=== PATIENT | female | born 1980 | race Caucasian/White ===

== ENCOUNTER 2019-09-08 16:37 | Outpatient (CLI) | payer SELFPAY ==
--- NOTE | 2019-09-08 16:41 | CT_ITS ---
WS: [id number] CT PARANASAL SINUSES HISTORY: CHRONIC SINUSITIS TECHNIQUE: Contiguous 2.5 mm axial images obtained through the sinuses. Images are reconstructed in s agittal and coronal planes. All CT scans at [facility] use at least one of these dose opt imization techniques: automated exposure control; mA and/or kV adjustment per patient size (includes targeted exams where dose is matched to clinical indication); or iterative reconstruction. DLP: 361.68 mGy-cm. COMPARISON: 05/04/2019 Frontal sinuses: Small amount mucoperiosteal thickening in the far lateral LEFT frontal sinus. Simila r to the prior study. Sphenoid sinus: Normal. Ethmoid sinuses: Normal. Maxillary sinus: Small amount of mucoperiosteal thickening in the floors of the maxillary sinuses. No air-fluid levels. Ostiomeatal unit: Ostiomeatal units are widely patent. Improved mucoperiosteal thickening involving t he RIGHT ostiomeatal unit. Leftward curvature of the nasal septum with a bony spur measuring 5 mm extending towards the LEFT. CT/CT sinus wo con* [id number] IMPRESSION: 1. 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 2. Improved mucoperiosteal thickening at the RIGHT ostiomeatal unit. 3. Leftward nasal septal spur is unchanged.
== END 2019-09-08 16:38 | disposition home or self-care (01) ==
LOC: RADWPI 16:39
PROVIDERS: Family Provider Family Medicine; PCP Family Medicine; Visit Provider Otolaryngology
DX: J34.89 Other specified disorders of nose and nasal sinuses (principal); J32.9 Chronic sinusitis, unspecified
CPT/HCPCS: 70486

== ENCOUNTER → 2019-10-03 10:26 | Outpatient (BNVA) | payer SELFPAY | PROVIDERS: Family Provider Family Medicine; PCP Family Medicine; Visit Provider Nurse Practitioner Family | DX: R00.2 Palpitations (principal) | CPT/HCPCS: 84443 ==

== ENCOUNTER → 2019-10-06 09:33 | Outpatient (BNVA) | payer SELFPAY | PROVIDERS: Family Provider Family Medicine; PCP Family Medicine; Referring Provider Family Medicine; Visit Provider Otolaryngology | DX: Z09 Encounter for follow-up examination after completed treatment for conditions other than malignant neoplasm (principal); J34.2 Deviated nasal septum; J34.3 Hypertrophy of nasal turbinates; J34.89 Other specified disorders of nose and nasal sinuses; F17.210 Nicotine dependence, cigarettes, uncomplicated | CPT/HCPCS: 96372; 99214 ==

== ENCOUNTER → 2019-10-21 10:20 | Outpatient (BNVA) | payer SELFPAY | PROVIDERS: Family Provider Family Medicine; PCP Family Medicine; Visit Provider Otolaryngology | DX: J34.2 Deviated nasal septum (principal); J34.3 Hypertrophy of nasal turbinates; J34.89 Other specified disorders of nose and nasal sinuses; F17.210 Nicotine dependence, cigarettes, uncomplicated | CPT/HCPCS: 96372; 99214 ==

== ENCOUNTER → 2020-02-13 14:30 | Outpatient (BNVA) | payer SELFPAY | PROVIDERS: Family Provider Family Medicine; PCP Family Medicine; Visit Provider Nurse Practitioner Family | DX: N92.6 Irregular menstruation, unspecified (principal) | CPT/HCPCS: 81025 ==

== ENCOUNTER 2020-04-29 18:56 | Inpatient (IN) | payer SELFPAY ==
[2020-04-29] VITALS (12 sets, daily range): BP systolic 102–137; BP diastolic 63–99; PULSE 74–93; RESP 14–31; TEMP 36.7–37.1; O2SAT 96–100; BMI 20.3
--- NOTE | 2020-04-29 18:57 | ECG_ITS ---
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 Measurements Intervals [place] Rate: 99 P: 40 MI: 154 QRS: 34 QRSD: 88 T: 35 QT: 367 QTc: 472 Interpretive Statements SINUS RHYTHM POSSIBLE LEFT ATRIAL ENLARGEMENT [-0.1mV P WAVE IN V1/V2] Compared to ECG 03/18/2019 19:24:11 T-wave abnormality no longer present Electronically Signed On 04-30-2020 12:00:33 CDT by Ruel Mims M.D. [id number]
--- NOTE | 2020-04-29 19:07 | ED_ITS ---
HPI - Overdose General: Chief Complaint: Overdose Stated Complaint: lithium overdose Time Seen by Provider: 04/29/20 18:57 Source: patient Mode of arrival: ambulatory Limitations: no limitations History of Present Illness: HPI Narrative: 40-year-old female who states she is having suicidal ideations and took a handful of lithium pills roughly 2 hours ago in an attempt to kill herself. Patient states that there was roughly 5-6 600 mg tablets. Patient denies any vomiting. She is slightly drowsy. She denies any fevers. Review of Systems Const: Denies: fever(s), chills, body aches or change in appetite Eyes: Denies: blurry vision or eye discomfort ENMT: Denies: throat pain or dental pain Card: Denies: chest pain Resp: Denies: dyspnea GI: Denies: abdominal pain, nausea, vomiting or diarrhea : Denies: dysuria Musc: Denies: neck pain or back pain Skin/Breast: Denies: rash Neuro: Denies: headache(s) Psych: Reports: suicidal ideation Abhinav/Lymph: Denies: easy bruising All/Imm: Denies: urticaria PFSH ED PFSH: Medical History Bipolar disorder, in partial remission, most recent episode depressed Chronic schizophrenia Deviated septum Generalized anxiety disorder Nasal obstruction Nasal turbinate hypertrophy Nicotine dependence, cigarettes, uncomplicated Obsessive-compulsive personality disorder Surgical History Hx laparoscopic cholecystectomy Hx of appendectomy Family History Grandmother CAD (coronary artery disease) Diabetes Hyperlipidemia Hypertension Father CAD (coronary artery disease) Cancer Hyperlipidemia Hypertension Psychiatric illness Grandfather Hyperlipidemia Hypertension Stroke Social History Smoking and tobacco status: current some day smoker Quit status (tobacco): considering quitting Second hand smoke exposure: Yes Alcohol intake: never Household members: spouse and children Housing: House Female Reproductive History: Date of last menstrual period: 11/06/19 Physical Exam Const: COMMON NORMALS: no acute distress, patient oriented x3 and healthy appearing HENMT: COMMON NORMALS: normocephalic and atraumatic HEAD & SCALP: nor mocephalic and atraumatic Eye: COMMON NORMALS: Equal, round and reactive pupils present and EOMs intact bilaterally PUPIL: Yes Equal, round and reactive pupils present Neck/C-Spine: COMMON NORMALS: full ROM and supple Chest: COMMONS NORMALS: normal inspection of the chest and normal palpation of entire chest wall Resp: COMMON NORMALS: normal respiratory effort, No retractions, No use of accessory muscles and clear to auscultation bilaterally AUSCULTATION: clear to auscultation bilaterally Cardio: COMMON NORMALS: regular rate, regular rhythm and No murmurs present (Cardio) RATE: regular rate RHYTHM: regular rhythm GI: COMMON NORMALS: Normal to inspection, nondistended, normoactive bowel sounds present, Soft to palpation, non-tender and no masses PALPATION: Yes Soft to palpation Extremity: COMMON NORMALS: normal to inspection and full ROM Neuro: COMMON NORMALS: patient oriented x3, moves all extremities and no focal motor deficits Psych: COMMON NORMALS: mental status grossly normal and cooperative THOUGHT CONTENT: Yes Suicidality present Skin: COMMON NORMALS: no rashes or lesions noted and no wounds GENERAL SKIN EXAM: no rashes or lesions noted Course Vital Signs: Vital signs: Vital Signs Temperature 98.1 F 04/29/20 19:07 Pulse Rate 93 04/29/20 19:07 Respiratory Rate 14 04/29/20 19:07 Blood Pressure 129/99 04/29/20 19:07 Pulse Oximetry 96 04/29/20 19:07 MDM - Overdose MDM Narrative: Medical decision making narrative: Mary presents here with overdose of lithium. Initial level here is 2.0. She does not require any treatment at this time and is asymptomatic. Spoke to poison control and will admit to the ICU and do every 3 hours lithium drawls. Also spoke to Dr. Farias of psychiatry who is consulted. Patient has been stable while here. Lab Data: Labs: Lab Results 04/29/20 04/29/20 04/29/20 Range/Units 19:11 19:11 19:16 WBC 9.8 (4.0-10.0) 10^3/ uL RBC 4.30 (4.1-5.3) 10^6/u L Hgb 13.9 (11.5-15.3) g/dL Hct 43.8 (37.0-47.0) % MCV 101.9 H (81-99) fL MCH 32.3 (28.0-34.0) pg MCHC 31.7 (30.0-36.0) g/dL RDW 12.8 (12.1-15.1) % Plt Count 408 H (130-400) 10^3/c mm MPV 10.1 (7.4-10.4) fL Neut % (Auto) 63.5 % Lymph % (Auto) 30.4 % [place] % (Auto) 4.3 % Eos % (Auto) 0.9 % Baso % (Auto) 0.6 % Neut # (Auto) 6.23 (1.8-7.7) 10^3/u L Lymph # (Auto) 3.0 (0.8-4.8) 10^3/u L Victoria # (Auto) 0.4 (0.2-0.9) 10^3/u L Eos # (Auto) 0.1 (0.0-0.8) 10^3/u L Baso # (Auto) 0.1 (0.0-0.1) 10^3/u L Nucleated RBC % (a uto) 0 % Nucleated RBCs # 0.0 /100WBC Sodium (136-145) mmol/L Potassium (3.5-5.1) mmol/L Chloride (98-107) mmol/L Carbon Dioxide (22-29) mmol/L Anion Gap (5-19) BUN (6-20) mg/dL Creatinine (0.5-0.9) mg/dL GFR Calculation (90-130) mL/min Glucose (65-115) mg/dL Calculated Osmolal ity (285-295) mOsm/k g Calcium (8.5-10.5) mg/dL Total Bilirubin (0.15-1.2) mg/dL AST (0-32) U/L ALT (0-33) U/L Alkaline Phosphata se (35-105) IU/L Total Protein (6.6-8.7) g/dL Albumin (3.5-5.2) g/dL Globulin (1.3-4.6) g/dL HCG, Qual Negative (Negative) Salicylates (3-10) mg/dL Urine Opiates Scre en Negative (Negative) ng/mL Acetaminophen (10-30) ug/mL Ur Barbiturates Sc reen Negative (Negative) ng/mL Ur Phencyclidine S crn Negative (Negative) ng/mL Ur Amphetamines Sc reen Positive H (Negative) ng/mL U Benzodiazepines Scrn Negative (Negative) ng/mL [place] (0.6-1.2) mmol/L Urine Cocaine Scre en Negative (Negative) ng/mL U Marijuana (THC) Screen Negative (Negative) ng/mL Ethyl Alcohol (0-10) mg/dL 04/29/20 04/29/20 Range/Units 19:16 19:16 WBC (4.0-10.0) 10^3/ uL RBC (4.1-5.3) 10^6/u L Hgb (11.5-15.3) g/dL Hct (37.0-47.0) % MCV (81-99) fL MCH (28.0-34.0) pg MCHC (30.0-36.0) g/dL RDW (12.1-15.1) % Plt Count (130-400) 10^3/c mm MPV (7.4-10.4) fL Neut % (Auto) % Lymph % (Auto) % [place] % (Auto) % Eos % (Auto) % Baso % (Auto) % Neut # (Auto) (1.8-7.7) 10^3/u L Lymph # (Auto) (0.8-4.8) 10^3/u L Victoria # (Auto) (0.2-0.9) 10^3/u L Eos # (Auto) (0.0-0.8) 10^3/u L Baso # (Auto) (0.0-0.1) 10^3/u L Nucleated RBC % (a uto) % Nucleated RBCs # /100WBC Sodium 140 (136-145) mmol/L Potassium 3.7 (3.5-5.1) mmol/L Chloride 108 H (98-107) mmol/L Carbon Dioxide 25 (22-29) mmol/L Anion Gap 10.7 (5-19) BUN 9 (6-20) mg/dL Creatinine 0.6 (0.5-0.9) mg/dL GFR Calculation 109.6 (90-130) mL/min Glucose 105 (65-115) mg/dL Calculated Osmolal ity 286 (285-295) mOsm/k g Calcium 9.1 (8.5-10.5) mg/dL Total Bilirubin 0.4 (0.15-1.2) mg/dL AST 17 (0-32) U/L ALT 40 H (0-33) U/L Alkaline Phosphata se 71 (35-105) IU/L Total Protein 7.7 (6.6-8.7) g/dL Albumin 4.5 (3.5-5.2) g/dL Globulin 3.2 (1.3-4.6) g/dL HCG, Qual (Negative) Salicylates < 0.3 L (3-10) mg/dL Urine Opiates Scre en (Negative) ng/mL Acetaminophen < 5.0 L (10-30) ug/mL Ur Barbiturates Sc reen (Negative) ng/mL Ur Phencyclidine S crn (Negative) ng/mL Ur Amphetamines Sc reen (Negative) ng/mL U Benzodiazepines Scrn (Negative) ng/mL [place] 2.0 H (0.6-1.2) mmol/L Urine Cocaine Scre en (Negative) ng/mL U Marijuana (THC) Screen (Negative) ng/mL Ethyl Alcohol < 10 (0-10) mg/dL Discharge Plan Discharge Patient Disposition: Admitted As Inpatient Clinical Impression: Suicidal ideation Drug overdose Qualifiers: Encounter type: initial encounter Injury intent: intentional self-harm Qualified Code(s): T50.902A - Poisoning by unspecified drugs, medicaments and biological substances, intentional self-harm, initial encounter Condition: Stable Coding Level of Care Code ED Sr. Unix System Administrator for Phil Courtney Exam Comprehensive
[2020-04-29 19:23] LABS: Basophils # 0.1 10^3/uL (0.0-0.1); Basophils % 0.6 %; Eosinophils # 0.1 10^3/uL (0.0-0.8); Eosinophils % 0.9 %; Hematocrit 43.8 % (37.0-47.0); Hemoglobin 13.9 g/dL (11.5-15.3); Lymphocytes % 30.4 %; Mean Corpuscular HGB Conc 31.7 g/dL (30.0-36.0); Mean Corpuscular Hemoglobin 32.3 pg (28.0-34.0); Mean Corpuscular Volume 101.9 fL (81-99); Mean Platelet Volume 10.1 fL (7.4-10.4); Monocytes # 0.4 10^3/uL (0.2-0.9); Monocytes % 4.3 %; Neutrophils # 6.23 10^3/uL (1.8-7.7); Neutrophils % 63.5 %; Nucleated Red Blood Cells % 0 %; Platelet Count 408 10^3/cmm (130-400); Red Cell Distribution Width 12.8 % (12.1-15.1); White Blood Count 9.8 10^3/uL (4.0-10.0)
[2020-04-29 19:23] LABS: HCG Qualitative Urine. Negative (Negative)
[2020-04-29 19:29] LABS: Amphetamines Screen Urine Positive (Negative); Barbiturates Screen Urine Negative (Negative); Benzodiazepines Screen Urine Negative (Negative); Cocaine Screen Urine Negative (Negative); Opiate Screen Urine Negative (Negative); PCP Screen Urine Negative (Negative); THC Screen Urine Negative (Negative)
[2020-04-29] MEDS: sodium chloride 0.9% 1,000 ML 999 ML IV (19:45)
[2020-04-29 19:46] LABS: Alanine Aminotransferase 40 U/L (0-33); Albumin Level 4.5 g/dL (3.5-5.2); Alkaline Phosphatase 71 IU/L (35-105); Anion Gap 10.7 (5-19); Aspartate Amino Transferase 17 U/L (0-32); Blood Urea Nitrogen 9 mg/dL (6-20); Calcium 9.1 mg/dL (8.5-10.5); Carbon Dioxide 25 mmol/L (22-29); Chloride 108 mmol/L (98-107); Globulin 3.2 g/dL (1.3-4.6); Glomerular Filtration Rate 109.6 mL/min (90-130); Glucose 105 mg/dL (65-115); Osmolality Calculated 286 mOsm/kg (285-295); Potassium 3.7 mmol/L (3.5-5.1); Sodium 140 mmol/L (136-145); Total Bilirubin 0.4 mg/dL (0.15-1.2); Total Protein 7.7 g/dL (6.6-8.7)
[2020-04-29 19:53] LABS: Acetaminophen < 5.0 ug/mL (10-30); Alcohol Level < 10 mg/dL (0-10); Salicylate < 0.3 mg/dL (3-10)
[2020-04-29] MEDS: ondansetron 2 mg/ML SDV 2 mL 4 MG IVP (20:31)
--- NOTE | 2020-04-29 21:18 | P.HP_ITS ---
Providers/Chief Complaint Primary Care Provider: Bozena Rodriguez DO Chief Complaint: lithium overdose History of Present Illness Mary Saucedo is a 40 year old female who carries history of schizophrenia, bipolar disorder, major depressive disorder, suicidal attempt in the past as well by taking lithium came in today after drug overdose. Patient is stating that she is under a lot of stress, currently undergoing divorce, had an argument with her today and took a handful of lithium tablets, she is not sure about the quantity but endorses 6 to 8 pills, she is endorsing suicidal ideation in the hospital as well. She is denying fever, nausea, vomiting, experienced one episode of chest pain in the ER which lasted for about few minutes which resolved on its own, EKG is not showing any ischemic or infarctive changes, no interval changes, no abnormal creatinine, no severe electrolyte abnormality, U tox positive for lithium level 2 and amphetamine screen. Patient is endorsing to smoking 1 pack/day, drinking alcohol socially and denies use of IV drug abuse, methamphetamine or marijuana. At the time of my evaluation she had normal hemodynamics, saturating well, comfortable laying in her bed without any active discomfort, no signs of serotonin syndrome, no myoclonus Review of Systems Const: Reports: chills and fatigue; Denies: fever(s) Eyes: Denies: change in vision ENMT: Denies: throat pain Card: Denies: chest pain Resp: Denies: dyspnea GI: Denies: abdominal pain, nausea or vomiting : Denies: flank pain Musc: Denies: neck pain or back pain Skin/Breast: Denies: rash or pruritus Neuro: Denies: headache(s) Psych: Reports: anxiety, depression, mood swings, hopelessness, loss of interest, irritability and suicidal ideation Endo: Denies: polyuria Abhinav/Lymph: Denies: easy bruising All/Imm: Denies: urticaria Medications/Allergies Home Medications Medication Instructions Recorded Confirmed Last Taken Type aripiprazole 30 mg tablet 30 mg PO DAILY #30 tab 03/08/20 03/08/20 Unknown Rx clonazepam 0.5 mg tablet 0.5 mg PO TID #90 tab 03/08/20 03/08/20 Unknown Rx hydroxyzine pamoate 50 mg capsule 50 mg PO .at bedtime PRN #30 cap 03/08/20 03/08/20 Unknown Rx Allergies Allergy/AdvReac Type Severity Reaction Status Date / Time aspirin Allergy Mild ALGY-Hives Verified 02/13/20 14:33 Penicillins Allergy Unknown Unknown Verified 02/13/20 14:33 PFSH Acute PFSH: Medical History Bipolar disorder, in partial remission, most recent episode depressed Chronic schizophrenia Deviated septum Generalized anxiety disorder Nasal obstruction Nasal turbinate hypertrophy Nicotine dependence, cigarettes, uncomplicated Obsessive-compulsive personality disorder Surgical History Hx laparoscopic cholecystectomy Hx of appendectomy Family History Grandmother CAD (coronary artery disease) Diabetes Hyperlipidemia Hypertension Father CAD (coronary artery disease) Cancer Hyperlipidemia Hypertension Psychiatric illness Grandfather Hyperlipidemia Hypertension Stroke Social History Smoking and tobacco status: current some day smoker Quit status (tobacco): considering quitting Second hand smoke exposure: Yes Alcohol intake: never Household members: spouse and children Housing: House Female Reproductive History: Date of last menstrual period: 11/06/19 Vitals/I&O/Wt Last Vital Signs Temp 98.1 F 04/29/20 19:07 Pulse 93 04/29/20 19:07 Resp 14 04/29/20 19:07 BP 129/99 04/29/20 19:07 Pulse Ox 96 04/29/20 19:07 Weight last 48 hrs Weight 58.967 kg Physical Exam Narrative: EXAM NARRATIVE: This is a young female who is currently comfortable in her bed Normal hemodynamics No active chest pain nausea vomiting or signs of serotonin syndrome Neurologically nonfocal exam Myoclonus absent EOMI, PERRLA S1-S2 no tachycardia heart failure Abdomen soft nontender nondistended Clear lungs are clear to auscultation Patient is able to give me above-mentioned detail, endorses suicidal ideation No lower extremity edema gangrene ulcer Data : 04/29/20 19:16 04/29/20 19:16 A&P Assessment and plan (1) Drug overdose: Status: Acute Qualifiers: Encounter type: initial encounter Injury intent: intentional self-harm Qualified Code(s): T50.902A - Poisoning by unspecified drugs, medicaments and biological substances, intentional self-harm, initial encounter (2) Suicidal ideation: Status: Acute (3) Nicotine dependence, cigarettes, uncomplicated: Status: Acute (4) Generalized anxiety disorder: Status: Acute (5) Obsessive-compulsive personality disorder: Status: Acute (6) Chronic schizophrenia: Status: Acute Additional A&P Information Drug overdose with suicidal attempt 96-hour hold, history of suicidal attempt with lithium [place] level 2 No neurological or GI symptoms EKG with No acute kidney abnormality Monitor for serotonin syndrome, no confusion agitation, tremor noted, however neurological signs do occur late, acute symptoms are mostly GI which she is denying at the moment No acute indication for dialysis Fluid resuscitation Psych consult Hypertension: LVH and left atrial enlargement evident on EKG Currently normotensive Monitor blood pressure in the ICU DVT prophylaxis: Lovenox Full code Cardiac Attestations Medical Necessity Statement*: Patient is on 96-hour hold anticipating stay in the hospital cross more than 2 midnights currently need overnight monitoring in ICU for lithium toxicity Time Spent in Patient Care: (>than 50% of time spent in counselling and/or direct pt care on unit) . 50 minutes Coding Level of Care Code Acute [employer] for Chg Fwd Diagnoses Drug overdose T50.902A Encounter type: initial encounter Injury intent: intentional self-harm Suicidal ideation R45.851 Nicotine dependence, cigarettes, uncomplicated F17.210 Generalized anxiety disorder F41.1 Obsessive-compulsive personality disorder F60.5 Chronic schizophrenia F20.9
--- NOTE | 2020-04-29 22:50 | PC.NURSE ---
during pt rounds, pt states she is nauseated with no vomiting. vo obtained for 4mg of zofran IVP
--- NOTE | 2020-04-29 23:55 | PC.NURSE ---
Patient is able to void in bathroom toilet with supervision.
[2020-04-30] VITALS (22 sets, daily range): BP systolic 94–142; BP diastolic 38–79; PULSE 46–101; RESP 14–22; TEMP 37–37.1; O2SAT 94–97
[2020-04-30] MEDS: enoxaparin 40 mg/0.4 mL Syringe SUBCUT (00:03)
[2020-04-30] MEDS: sodium chloride 0.9% 1,000 ML 75 ML IV (00:04)
--- NOTE | 2020-04-30 00:45 | PC.NURSE ---
RN relieved patient's sitter for her break. 1:1 observation is continued.
--- NOTE | 2020-04-30 00:50 | PC.NURSE ---
Normal saline started as ordered.
--- NOTE | 2020-04-30 00:52 | PC.NURSE ---
Patient on suicide 1:1 observation.
--- NOTE | 2020-04-30 00:53 | PC.NURSE ---
Copy of patient's Notice of Rights of Involuntary Patient document provided et at bedside. Rights reviewed with patient.
[2020-04-30 02:07] LABS: Basophils # 0.1 10^3/uL (0.0-0.1); Basophils % 0.6 %; Eosinophils # 0.1 10^3/uL (0.0-0.8); Eosinophils % 1.2 %; Hematocrit 39.5 % (37.0-47.0); Hemoglobin 12.3 g/dL (11.5-15.3); Lymphocytes # 3.6 10^3/uL (0.8-4.8); Mean Corpuscular HGB Conc 31.1 g/dL (30.0-36.0); Mean Corpuscular Hemoglobin 32.4 pg (28.0-34.0); Mean Corpuscular Volume 103.9 fL (81-99); Mean Platelet Volume 10.6 fL (7.4-10.4); Monocytes # 0.5 10^3/uL (0.2-0.9); Monocytes % 4.3 %; Neutrophils # 7.34 10^3/uL (1.8-7.7); Neutrophils % 62.6 %; Nucleated Red Blood Cells % 0 %; Platelet Count 339 10^3/cmm (130-400); Red Cell Distribution Width 12.7 % (12.1-15.1); White Blood Count 11.7 10^3/uL (4.0-10.0)
[2020-04-30 02:11] LABS: Alanine Aminotransferase 33 U/L (0-33); Albumin Level 3.7 g/dL (3.5-5.2); Alkaline Phosphatase 58 IU/L (35-105); Aspartate Amino Transferase 24 U/L (0-32); Blood Urea Nitrogen 6 mg/dL (6-20); Calcium 8.9 mg/dL (8.5-10.5); Carbon Dioxide 25 mmol/L (22-29); Chloride 109 mmol/L (98-107); Globulin 2.4 g/dL (1.3-4.6); Glomerular Filtration Rate 109.6 mL/min (90-130); Glucose 98 mg/dL (65-115); Osmolality Calculated 288 mOsm/kg (285-295); Sodium 141 mmol/L (136-145); Total Bilirubin 0.3 mg/dL (0.15-1.2); Total Protein 6.1 g/dL (6.6-8.7)
[2020-04-30 04:59] LABS: Lithium 1.6 mmol/L (0.6-1.2)
--- NOTE | 2020-04-30 07:43 | PC.NURSE ---
Output Report was given to this nurse and output overnight was 1950 ml
[2020-04-30] MEDS: potassium chloride ER 10 mEq Tablet 40 MEQ PO (08:51)
--- NOTE | 2020-04-30 09:29 | PC.NURSE ---
Home medications Bottle of lithium was brought to this nurse and was in a biohazard bag with patient label and entered into [facility].
--- NOTE | 2020-04-30 10:28 | PM.PN ---
Subjective Subjective: Interval history: She is denies any discomfort. Denies headache, dizziness, chest pain, SOB, pain anywhere else. Vitals/I&O/Wt Last Vital Signs Temp 98.7 F 04/30/20 00:00 Pulse 78 04/30/20 09:00 Resp 22 H 04/30/20 09:00 BP 124/71 04/30/20 09:00 Pulse Ox 96 04/30/20 09:00 04/29/20 04/30/20 04/30/20 22:59 06:59 14:59 Intake Total 260 / 260 Output Total 600 / 600 Balance -340 / -340 Weight last 48 hrs Weight 58.967 kg Physical Exam Const: COMMON NORMALS: no acute distress, patient oriented x3 and alert ORIENTATION/CONSCIOUSNESS: Yes awake HENMT: COMMON NORMALS: oropharynx normal Neck/C-Spine: COMMON NORMALS: no JVD Resp: COMMON NORMALS: normal respiratory effort and clear to auscultation bilaterally AUSCULTATION: clear to auscultation bilaterally Cardio: COMMON NORMALS: no JVD, regular rhythm, S1 normal heart sound present, S2 normal heart sound present and No murmurs present (Cardio) RHYTHM: regular rhythm HEART SOUNDS: S1 normal heart sound present and S2 normal heart sound present GI: COMMON NORMALS: Normal to inspection, nondistended, normoactive bowel sounds present, Soft to palpation and non-tender PALPATION: Yes Soft to palpation Extremity: COMMON NORMALS: no joint enlargement and no pedal edema Neuro: COMMON NORMALS: patient oriented x3 and moves all extremities SENSORIUM/ORIENTATION: Yes alert Skin: COMMON NORMALS: no rashes or lesions noted GENERAL SKIN EXAM: no rashes or lesions noted Data : 04/30/20 01:20 04/30/20 01:20 A&P Assessment and plan (1) Drug overdose: Suicidal ideation attempt with lithium overdose. She did well overnight, lithium level is coming down, most recently at 1.6. Renal function, heart rate, other parameters are normal. She is awake, alert, lucid and denies any discomfort. Discussed with psychiatry. May continue care on our neuropsychiatric unit. Status: Acute Qualifiers: Encounter type: initial encounter Injury intent: intentional self-harm Qualified Code(s): T50.902A - Poisoning by unspecified drugs, medicaments and biological substances, intentional self-harm, initial encounter (2) Suicidal ideation: Will need additional psychiatric assessment and care. Status: Acute (3) Nicotine dependence, cigarettes, uncomplicated: Encourage cessation. Status: Acute (4) Generalized anxiety disorder: Pending additional psychiatric assessment. Status: Acute (5) Obsessive-compulsive personality disorder: Status: Acute (6) Chronic schizophrenia: Status: Acute Additional A&P Information Hypertension: At goal. LVH and left atrial enlargement evident on EKG. Hypokalemia: Replaced. Amphetamine positive urine tox screen: She had denied amphetamine use. Unclear if this is cross reaction from another substance, or drug use. We will see if can get a confirmatory test. Attestations Medical Necessity Statement*: Continue admission for assessment and management of depression with suicidal ideation and attempt. Coding Level of Care Code Acute Faculty Member for Phil Fwd Diagnoses Drug overdose T50.907C Encounter type: initial encounter Injury intent: intentional self-harm Suicidal ideation R45.851 Nicotine dependence, cigarettes, uncomplicated F17.210 Generalized anxiety disorder F41.1 Obsessive-compulsive personality disorder F60.5 Chronic schizophrenia F20.9
--- NOTE | 2020-04-30 11:43 | PC.NURSE ---
Transfer Patient was transferred to NPU via wheelchair by this nurse and security at 1130 and was greeted by staff. Patients belongings included jeans, shirt, bra, keys, necklace and cell phone. Patient tolerated transfer well.
--- NOTE | 2020-04-30 16:45 | PC.RESP ---
SMOKING CESSATION INFORMATION SENT TO PATIENT.
[2020-04-30 16:48] LABS: Anion Gap 12.1 (5-19); Blood Urea Nitrogen 6 mg/dL (6-20); Calcium 9.3 mg/dL (8.5-10.5); Carbon Dioxide 26 mmol/L (22-29); Chloride 109 mmol/L (98-107); Glomerular Filtration Rate 109.6 mL/min (90-130); Glucose 102 mg/dL (65-115); Osmolality Calculated 292 mOsm/kg (285-295); Potassium 4.1 mmol/L (3.5-5.1); Sodium 143 mmol/L (136-145)
[2020-04-30 17:06] LABS: Lithium 0.9 mmol/L (0.6-1.2)
[2020-04-30] MEDS: CLONazepam 0.5 mg Tablet PO (20:19)
--- NOTE | 2020-04-30 20:35 | PC.NURSE ---
pt given scheduled klonopin.
[2020-05-01 06:00] VITALS: BP 101/59; PULSE 74; RESP 17; TEMP 37.2; O2SAT 97
[2020-05-01 07:08] LABS: Basophils # 0.1 10^3/uL (0.0-0.1); Basophils % 0.5 %; Eosinophils # 0.2 10^3/uL (0.0-0.8); Eosinophils % 2.1 %; Hematocrit 41.4 % (37.0-47.0); Hemoglobin 12.8 g/dL (11.5-15.3); Lymphocytes # 2.9 10^3/uL (0.8-4.8); Lymphocytes % 30.2 %; Mean Corpuscular HGB Conc 30.9 g/dL (30.0-36.0); Mean Corpuscular Volume 103.5 fL (81-99); Mean Platelet Volume 10.1 fL (7.4-10.4); Monocytes # 0.4 10^3/uL (0.2-0.9); Monocytes % 4.4 %; Neutrophils # 5.98 10^3/uL (1.8-7.7); Neutrophils % 62.6 %; Nucleated Red Blood Cells % 0 %; Platelet Count 334 10^3/cmm (130-400); Red Cell Distribution Width 12.6 % (12.1-15.1); White Blood Count 9.6 10^3/uL (4.0-10.0)
[2020-05-01 07:28] LABS: Anion Gap 11.9 (5-19); Blood Urea Nitrogen 5 mg/dL (6-20); Calcium 9.3 mg/dL (8.5-10.5); Carbon Dioxide 25 mmol/L (22-29); Chloride 109 mmol/L (98-107); Creatinine Clr Calc Pharmacy 100.0704; Glomerular Filtration Rate 91.8 mL/min (90-130); Glucose 94 mg/dL (65-115); Osmolality Calculated 289 mOsm/kg (285-295); Potassium 3.9 mmol/L (3.5-5.1); Sodium 142 mmol/L (136-145)
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
[2020-05-01 13:26] VITALS: BP 130/77; PULSE 71; RESP 18; TEMP 37.1; O2SAT 99
[2020-05-01] MEDS: trazodone 50 mg Tablet PO (20:15)
[2020-05-01 21:10] VITALS: BP 128/79; PULSE 59; RESP 18; TEMP 36.5; O2SAT 96
--- NOTE | 2020-05-01 21:12 | PC.NURSE ---
pt requested sleep aide, prn trazodone given.
[2020-05-02 06:00] VITALS: BP 114/71; PULSE 71; RESP 16; TEMP 36.7; O2SAT 96
--- NOTE | 2020-05-02 13:27 | PM.NPN ---
Subjective NPU Subjective: Interval history: Mary presents today reporting that she is feeling better and that she is ready for discharge. The continue to discuss the significance of her behavior. She continues to endorse an epiphany from her overdose and downplays the need for her to be managed in an inpatient unit. Her focus is to get home and take care of my kids and family. However she struggles to identify that she was successful this option would be taken from her, so we continued to stress her being here due to her choices, not our decisions. She reports she is eating okay and sleeping fine. Mental Status Exam MSE Comments: This is a well-nourished, well-developed, white female in hospital scrubs, with adequate grooming and eye contact. No abnormal movement, except for mild psychomotor retardation. Cooperative with exam in no acute distress. Speech was normal rate and volume. Mood described as doing pretty good; affect brighter. Thought process, organized. Thought content: patient denied any suicidal or homicidal ideation, there were no delusions reported or noted, patient denied any auditory or visual hallucinations. Attention, concentration, and memory appear intact but none were formally tested. She is alert and oriented times three. Insight and judgment are limited but improving. Impulse control is limited, but improving. Vitals/I&O/Wt Last Vital Signs Temp 97.7 F 05/02/20 21:22 Pulse 105 H 05/02/20 21:22 Resp 20 H 05/02/20 21:22 BP 120/84 05/02/20 21:22 Pulse Ox 99 05/02/20 21:22 Data NPU : 05/01/20 06:43 05/01/20 06:43 A&P Assessment and plan (1) Cluster B personality disorder: Status: Acute (2) Nicotine dependence, cigarettes, uncomplicated: Status: Acute (3) Generalized anxiety disorder: Status: Acute (4) Obsessive-compulsive personality disorder: Status: Acute (5) Bipolar disorder, in partial remission, most recent episode depressed: Status: Acute Additional A&P Information This is a 40 year old, white female, with a history of depression, schizophrenia versus bipolar disorder, obsessive compulsive disorder, generalized anxiety disorder, and recent overdose on [place], who presents on a hold and desiring discharge. Continue current medication. Will continue holding [place] until likely tomorrow, and then decide whether we are going to restart it, after consulting her outpatient provider. Encourage individual, group, and milieu therapy. Continue q-15 minute checks for safety. We will get as much collateral information as possible, to see how reasonable a discharge would be, at this time. Involuntary Hold Information 96 Hour Hold: 96 Hour Involuntary Admission: Yes 96 Hour Hold Ending Date: 05/04/20 96 Hour Hold Ending Time: 17:01 Attestations NPU Medical Necessity Statement*: Inpatient hospitalization is medically necessary and the clinically appropriate intervention, at this time. We will monitor medications and make changes as indicated. Likely length of stay is 1-3 days. Coding Level of Care Code Acute Business Intelligence Reporting Analyst for g Fwd Diagnoses Cluster B personality disorder F60.89 Nicotine dependence, cigarettes, uncomplicated F17.210 Generalized anxiety disorder F41.1 Obsessive-compulsive personality disorder F60.5 Bipolar disorder, in partial remission, most recent episode depressed F31.75
[2020-05-02 14:00] VITALS: BP 112/70; PULSE 76; RESP 20; TEMP 37.2; O2SAT 95
[2020-05-02 21:22] VITALS: BP 120/84; PULSE 105; RESP 20; TEMP 36.5; O2SAT 99
[2020-05-03 06:00] VITALS: BP 104/67; PULSE 82; RESP 18; TEMP 36.6; O2SAT 96
--- NOTE | 2020-05-03 08:09 | PC.NURSE ---
Patient is smiling and cooperative this morning on assessment. She was saying that she is supposed to go home today and that today is her granddaughters birthday. She talked about her 3 children and 5 grandchildren. She said she feels stupid for trying to hurt herself. She feels that she is ready to go home because she just wants to hug her children She feels embarrassed that she was not able to cope with her feelings in a better way. She denies HI/SI and said that she rested last night. She understands that what she did to come to the unit was not a good way to handle life stressors and said she is prepared to follow up with care when she returns home.
[2020-05-03] MEDS: ARIPiprazole 30 mg Tablet PO (08:11)
[2020-05-03] MEDS: lithium carbonate 300 mg Capsule 600 MG PO (08:11)
[2020-05-03 11:25] VITALS: BP 104/67; PULSE 82; RESP 18; TEMP 36.6; O2SAT 96
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
== END 2020-05-03 12:53 | disposition home or self-care (01) | DRG 918 ==
LOC: ER 21:35 → ICU 21:53 → NP 04-30 11:35
PROVIDERS: Emergency Medicine; Internal Medicine; Admitting Provider Internal Medicine; PCP Family Medicine; Visit Provider Psychiatry & Neurology Psychiatry
DX: T56.892A Toxic effect of other metals, intentional self-harm, initial encounter (principal); R45.851 Suicidal ideations; F20.9 Schizophrenia, unspecified; Z91.5 Personal history of self-harm; F17.210 Nicotine dependence, cigarettes, uncomplicated; F41.1 Generalized anxiety disorder; F60.5 Obsessive-compulsive personality disorder; I10 Essential (primary) hypertension; J34.2 Deviated nasal septum
CPT/HCPCS: 12345; 36415; 80048; 80053; 80178; 80306; 80307; 80326; 81025; 85025; 93005; 96372; 99283; J1650; J2405; J7030

== ENCOUNTER → 2020-05-03 16:43 | Outpatient (BNVA) | payer SELFPAY | PROVIDERS: PCP Family Medicine; Visit Provider Emergency Medicine | DX: M79.89 Other specified soft tissue disorders (principal); S62.336A Displaced fracture of neck of fifth metacarpal bone, right hand, initial encounter for closed fracture; X58.XXXA Exposure to other specified factors, initial encounter | CPT/HCPCS: 73130 ==

== ENCOUNTER 2020-05-09 13:52 | Outpatient (CLI) | payer SELFPAY | END 2020-05-09 13:53 | disposition home or self-care (01) | LOC: SPT 13:52 | PROVIDERS: PCP Family Medicine; Visit Provider Orthopaedic Surgery | DX: Z46.89 Encounter for fitting and adjustment of other specified devices (principal); S62.306D Unspecified fracture of fifth metacarpal bone, right hand, subsequent encounter for fracture with routine healing; X58.XXXD Exposure to other specified factors, subsequent encounter | CPT/HCPCS: 97760; L3984 ==

== ENCOUNTER → 2020-06-12 10:59 | Outpatient (BNVA) | payer SELFPAY | PROVIDERS: PCP Family Medicine; Visit Provider Orthopaedic Surgery | DX: S62.306A Unspecified fracture of fifth metacarpal bone, right hand, initial encounter for closed fracture (principal); X58.XXXA Exposure to other specified factors, initial encounter | CPT/HCPCS: 73130 ==

== ENCOUNTER → 2020-07-03 15:35 | Outpatient (BNVA) | payer SELFPAY | PROVIDERS: PCP Family Medicine; Visit Provider Orthopaedic Surgery | DX: M79.641 Pain in right hand (principal) | CPT/HCPCS: 73130 ==

== ENCOUNTER → 2020-07-18 17:36 | Outpatient (BNVA) | payer SELFPAY | PROVIDERS: PCP Family Medicine; Visit Provider Emergency Medicine | DX: Z34.90 Encounter for supervision of normal pregnancy, unspecified, unspecified trimester (principal) | CPT/HCPCS: 84703 ==

== ENCOUNTER → 2020-09-04 11:13 | Outpatient (BNVA) | payer SELFPAY | PROVIDERS: PCP Family Medicine; Visit Provider Nurse Practitioner Family | DX: Z20.828 Contact with and (suspected) exposure to other viral communicable diseases (principal) | CPT/HCPCS: 87635 ==

== ENCOUNTER 2020-10-21 22:20 | Emergency (ER) | payer SELFPAY ==
[2020-10-21 22:22] VITALS: BP 121/79; PULSE 97; RESP 14; TEMP 36.7; O2SAT 98; BMI 26.6
--- NOTE | 2020-10-21 22:32 | W.ED.ABDPA2 ---
HPI - Abdominal Pain General: Chief Complaint: Abdominal Pain Stated Complaint: pain in right side and lower back Time Seen by Provider: 10/21/20 22:31 History of Present Illness: HPI narrative: Patient is a 40-year-old female who comes to the ED with right flank pain. Patient says symptoms started couple hours ago. She says the pain was a 9 out of 10 then and she took a large dose of ibuprofen, over 1200 mg and says her pain is now down to a 3 out of 10. She says when she was having a lot of pain earlier she had some nausea with the pain, but no emesis. She says her urine has been cloudy but denies any dysuria or hematuria. Patient does not have a history of kidney stones. She had similar right flank pain approximately 2 weeks ago that self resolved after a day. Denies any fever, chills, chest pain, shortness of breath, abdominal pain, diarrhea or constipation. Associated Symptoms: Reports nausea (Resolved before coming to the ED.); Denies chills, constipation, diarrhea, dysuria, fever(s), hematochezia, hematuria and vomiting Related Data: Date of Last Menstrual Period: 11/06/19 Review of Systems Const: Denies: fever(s), chills or fatigue Eyes: Denies: change in vision or eye discomfort ENMT: Denies: throat pain, odynophagia, nasal discharge or nasal congestion Card: Denies: chest pain, palpitations, edema, swelling of feet/ankles, dyspnea on exertion or orthopnea Resp: Denies: dyspnea, productive cough or non-productive cough GI: Reports: nausea (Resolved before coming to the ED.); Denies: abdominal pain, vomiting, diarrhea, constipation or hematochezia : Reports: flank pain (Right side); Denies: dysuria or hematuria Musc: Denies: neck pain, back pain or extremity swelling Skin/Breast: Denies: rash or new lesions Neuro: Denies: headache(s), numbness in extremities or weakness in extremities PFS ED PFSH: Medical History Anxiety Bipolar disorder, in partial remission, most recent episode depressed Chronic schizophrenia Deviated septum Generalized anxiety disorder Hypertension Nasal obstruction Nasal turbinate hypertrophy Nicotine dependence, cigarettes, uncomplicated Obsessive-compulsive personality disorder Surgical History History of appendectomy History of cholecystectomy Hx laparoscopic cholecystectomy Hx of appendectomy Family History Grandmother CAD (coronary artery disease) Diabetes Hyperlipidemia Hypertension Father CAD (coronary artery disease) Cancer Hyperlipidemia Hypertension Psychiatric illness Grandfather Hyperlipidemia Hypertension Stroke Social History Smoking and tobacco status: current every day smoker cigarettes Packs smoked per day: 1.5 Quit status (tobacco): considering quitting Second hand smoke exposure: Yes Alcohol intake: current Alcohol intake frequency: few times a week Household members: spouse and children Housing: House Female Reproductive History: Date of last menstrual period: 11/06/19 Spontaneous abortions: No Physical Exam Const: COMMON NORMALS: no acute distress, patient oriented x3 and alert GENERAL APPEARANCE: cooperative and comfortable HENMT: COMMON NORMALS: normocephalic HEAD & SCALP: normocephalic MOUTH: Normal oral and palatal mucosa present THROAT: posterior oropharynx normal and uvula midline Neck/C-Spine: COMMON NORMALS: supple GENERAL: Yes normal visual inspection Resp: COMMON NORMALS: normal respiratory effort, No retractions, No use of accessory muscles and clear to auscultation bilaterally AUSCULTATION: clear to auscultation bilaterally Cardio: COMMON NORMALS: regular rate, regular rhythm, S1 normal heart sound present, S2 normal heart sound present, No gallops present (Cardio), No clicks present (Cardio), No murmurs present (Cardio) and Peripheral pulses 2+ throughout RATE: regular rate RHYTHM: regular rhythm HEART SOUNDS: S1 normal heart sound present and S2 normal heart sound present PERIPHERAL PULSES: Peripheral pulses 2+ throughout GI: COMMON NORMALS: Normal to inspection, nondistended, normoactive bowel sounds present, Soft to palpation, non-tender and no masses PALPATION: Yes Soft to palpation OTHER: No tenderness throughout all 4 quadrants of the abdomen with light and deep palpation. : BLADDER/KIDNEY EXAM: Yes CVA tenderness (mild to mod) on the right OTHER: Patient had right CVA tenderness but no left CVA tenderness. Back/Pelvis: GENERAL BACK: Yes CVA tenderness CVA tenderness: right OTHER: Right CVA tenderness but no left CVA tenderness. Extremity: COMMON NORMALS: normal to inspection and no pedal edema Neuro: COMMON NORMALS: patient oriented x3 SENSORIUM/ORIENTATION: Yes alert GAIT: Yes Normal gait present Skin: GENERAL SKIN EXAM: dry skin Course ED course: I discussed with patient the appropriate dose when taking ibuprofen. I explained her that if she is going to take ibuprofen for pain or fevers to take up to 800 mg per dose and no more than that. I also explained to her that she can have ibuprofen dose every 8 hours. Patient understood medication instructions. Vital Signs: Vital signs: Vital Signs Temperature 98.0 F 10/21/20 22:22 Pulse Rate 94 10/22/20 00:48 Respiratory Rate 18 10/22/20 00:48 Blood Pressure 130/78 10/22/20 00:48 Pulse Oximetry 100 10/22/20 00:48 MDM - Abdominal Pain MDM Narrative: Medical decision making narrative: Patient is a 40-year-old female comes to the ED with right flank pain. She denies any UTI symptoms or fevers. Pain started today. Patient took ibuprofen before coming to the ED and her pain was well controlled upon arrival. Patient appears nontoxic and in no acute distress. Right CVA tenderness upon exam. White blood cell count 12.3 and the rest of CBC and CMP were unremarkable. hCG negative. Urinalysis suggestive of UTI. CT abdomen ordered to evaluate for possible kidney stone or pyelonephritis. CT findings showed no stones or kidney hydronephrosis. Right ureter wall thickening seen, suggestive of pyelonephritis. Patient was given IV fluids and Rocephin while here in the ED. Patient was stable for discharge patient was diagnosed with pyelonephritis and sent home with a prescription for Zofran and levofloxacin. Follow-up with PCP in 7 to 10 days. Return to ED precautions given. Patient understood and agree with plan. Lab Data: Attestation: I reviewed the patient's lab results. Labs: Lab Results 10/21/20 10/21/20 10/21/20 Range/Units 22:44 22:52 22:52 WBC 12.3 H (4.0-10.0) 10^3/ uL RBC 4.06 L (4.1-5.3) 10^6/u L Hgb 13.3 (11.5-15.3) g/dL Hct 40.9 (37.0-47.0) % MCV 100.7 H (81-99) fL MCH 32.8 (28.0-34.0) pg MCHC 32.5 (30.0-36.0) g/dL RDW 12.3 (12.1-15.1) % Plt Count 398 (130-400) 10^3/c mm MPV 9.6 (7.4-10.4) fL Neut % (Auto) 67.2 % Lymph % (Auto) 24.0 % [place] % (Auto) 6.6 % Eos % (Auto) 1.4 % Baso % (Auto) 0.5 % Neut # (Auto) 8.24 H (1.8-7.7) 10^3/u L Lymph # (Auto) 3.0 (0.8-4.8) 10^3/u L [place] # (Auto) 0.8 (0.2-0.9) 10^3/u L Eos # (Auto) 0.2 (0.0-0.8) 10^3/u L Baso # (Auto) 0.1 (0.0-0.1) 10^3/u L Nucleated RBC % (a uto) 0 % Nucleated RBCs # 0.0 /100WBC Sodium 138 (136-145) mmol/L Potassium 3.5 (3.5-5.1) mmol/L Chloride 104 (98-107) mmol/L Carbon Dioxide 24 (22-29) mmol/L Anion Gap 13.5 (5-19) BUN 6 (6-20) mg/dL Creatinine 0.4 L (0.5-0.9) mg/dL GFR Calculation 175.0 H (90-130) mL/min Glucose 90 (65-115) mg/dL Calculated Osmolal ity 283 L (285-295) mOsm/k g Calcium 8.7 (8.5-10.5) mg/dL Total Bilirubin 0.2 (0.15-1.2) mg/dL AST 12 (0-32) U/L ALT 22 (0-33) U/L Alkaline Phosphata se 80 (35-105) IU/L Total Protein 7.1 (6.6-8.7) g/dL Albumin 3.9 (3.5-5.2) g/dL Globulin 3.2 (1.3-4.6) g/dL Lipase 32 (13-60) U/L HCG, Qual (Negative) Urine Color Yellow (Yellow) Urine Appearance Sl cloudy A (CLEAR) Urine pH 5 (5-7) Ur Specific Gravit y 1.020 (1.005-1.030) Urine Protein Neg (Negative) Urine Glucose (UA) Norm (Normal) Urine Ketones Negative (Negative) Urine Blood 2+ H (Negative) Urine Nitrate Positive H (Negative) Urine Bilirubin Neg (Negative) Urine Urobilinogen Norm (Negative) mg/dL Ur Leukocyte Jyoti ase 2+ H (Negative) Urine RBC Too numerous to c nt H (0-2) /hpf Urine WBC Too numerous to c nt H (0-5) /hpf Ur Squamous Epith Cells 15-25 H (0-5) /hpf Amorphous Sediment Not Reportable Urine Bacteria 2+ H (NONE) /hpf 10/21/20 Range/Units 22:52 WBC (4.0-10.0) 10^3/ uL RBC (4.1-5.3) 10^6/u L Hgb (11.5-15.3) g/dL Hct (37.0-47.0) % MCV (81-99) fL MCH (28.0-34.0) pg MCHC (30.0-36.0) g/dL RDW (12.1-15.1) % Plt Count (130-400) 10^3/c mm MPV (7.4-10.4) fL Neut % (Auto) % Lymph % (Auto) % [place] % (Auto) % Eos % (Auto) % Baso % (Auto) % Neut # (Auto) (1.8-7.7) 10^3/u L Lymph # (Auto) (0.8-4.8) 10^3/u L [place] # (Auto) (0.2-0.9) 10^3/u L Eos # (Auto) (0.0-0.8) 10^3/u L Baso # (Auto) (0.0-0.1) 10^3/u L Nucleated RBC % (a uto) % Nucleated RBCs # /100WBC Sodium (136-145) mmol/L Potassium (3.5-5.1) mmol/L Chloride (98-107) mmol/L Carbon Dioxide (22-29) mmol/L Anion Gap (5-19) BUN (6-20) mg/dL Creatinine (0.5-0.9) mg/dL GFR Calculation (90-130) mL/min Glucose (65-115) mg/dL Calculated Osmolal ity (285-295) mOsm/k g Calcium (8.5-10.5) mg/dL Total Bilirubin (0.15-1.2) mg/dL AST (0-32) U/L ALT (0-33) U/L Alkaline Phosphata se (35-105) IU/L Total Protein (6.6-8.7) g/dL Albumin (3.5-5.2) g/dL Globulin (1.3-4.6) g/dL Lipase (13-60) U/L HCG, Qual Negative (Negative) Urine Color (Yellow) Urine Appearance (CLEAR) Urine pH (5-7) Ur Specific Gravit y (1.005-1.030) Urine Protein (Negative) Urine Glucose (UA) (Normal) Urine Ketones (Negative) Urine Blood (Negative) Urine Nitrate (Negative) Urine Bilirubin (Negative) Urine Urobilinogen (Negative) mg/dL Ur Leukocyte Jyoti ase (Negative) Urine RBC (0-2) /hpf Urine WBC (0-5) /hpf Ur Squamous Epith Cells (0-5) /hpf Amorphous Sediment Urine Bacteria (NONE) /hpf Imaging Data ^: CT Abd/Pel: Attestation: I personally reviewed and interpreted this imaging study as follows: Radiologist's impression: [address] [address] [address] Scan Report Signed Patient: Mary Miller Unit #: [id number] : 1980 Age/Sex: 40 / F ADM Date: 10/21/20 Loc: ER Room/Bed: Attending Dr: Ordering Provider/Ordering MD: Toan Woods Date of Service: 10/21/20 Procedure(s): CT kidney stone 54542 Accession Number(s): [id number] Report Number: [id number] PROCEDURE INFORMATION: Exam: CT Abdomen And Pelvis Without Contrast Exam date and time: 10/21/2020 11:21 PM Age: 40 years old Clinical indication: Abdominal pain; Right; Prior surgery; Surgery date: 6+ months; Surgery type: Gb, appy; Patient HX: C/O R flank pain w nausea; Additional info: Right flank pain TECHNIQUE: Imaging protocol: Computed tomography of the abdomen and pelvis without contrast. Radiation optimization: All CT scans at this facility use at least one of these dose optimization techniques: automated exposure control; mA and/or kV adjustment per patient size (includes targeted exams where dose is matched to clinical indication); or iterative reconstruction. COMPARISON: CT Chest/Abdomen/Pelvis w IV* 05/04/2019 2:13 PM RADIATION DOSE METRICS: Total DLP (mGy-cm): 1117.26 FINDINGS: Lungs: Interval mild bilateral dependent atelectasis. Liver: Still no apparent liver disease. Gallbladder and bile ducts: Cholecystectomy again evident. No interval significant biliary ductal dilatation. Pancreas: Still no suggestion of pancreatic disease. Spleen: Still no splenomegaly. Adrenal glands: Still no adrenal mass. Kidneys and ureters: Interval minimal prominence of the right renal pelvis and mild dilatation of the upper right ureter along with mild thickening of their slaughter. Still no hydronephrosis or ureteral stone. Stomach and bowel: Nondistended stomach. No obstruction. No apparent mucosal thickening. Appendix: Appendectomy again apparent. Intraperitoneal space: Still no free air. Vasculature: Continued moderate right and mild left ovarian varices. Slight right pelvic varices still likely. Still no aortic aneurysm. Lymph nodes: Interval increase in size of a node between the inferior aorta and the IVC, but normal short axis diameter of this node. Interval increase in size and/or slight enlargement of several right lower mesenteric nodes and appearance of a few small foci of haziness in the superior mesenteric fat. Urinary bladder: Unremarkable as visualized. Reproductive: Interval increase in the retroflexion of the uterus. Bones/joints: A few old minimal compression fractures again evident. Interval slight worsening of the small marginal spurs of both femoral heads. No interval significant hip joint narrowing. Soft tissues: Interval increase in size of the phlebolith in the subcutaneous fat of the lateral left lower hip region. CT/CT kidney stone [id number] IMPRESSION: 1. Interval appearance of findings suggestive of mesenteric adenitis. Interval appearance of the right renal pelvic and ureteral findings raising the possibility of pyelonephritis, also. 2. Continued moderate right and mild left ovarian varices and probable slight right pelvic varices. Other findings detailed above. Radiation Dose CTDIVOL = (mGy): DLP = 1117.26 (mGy-cm) Dictated By: Shameka Hoffman MD Signed By: Shameka Hoffman MD Signed Date/Time: 10/22/20 0002 DD/ 0000 Discharge Plan Discharge Patient Disposition: Home Clinical Impression: Pyelonephritis Condition: Stable Prescriptions: New Zofran 4 mg tablet 4 mg PO Q8H Qty: 15 RF: 0 levofloxacin 750 mg tablet 750 mg PO DAILY 5 Days Qty: 5 RF: 0 No Action ondansetron 4 mg tablet,disintegrating 4 mg PO Q8H 4 Days Qty: 12 RF: 0 aripiprazole [Abilify] 30 mg tablet 30 mg PO DAILY Qty: 30 RF: 2 clonazepam 0.5 mg tablet 0.5 mg PO TID Qty: 90 RF: 2 sertraline [Zoloft] 50 mg tablet 50 mg PO DAILY Qty: 30 RF: 0 lithium carbonate 600 mg capsule 600 mg PO BID 30 Days Qty: 60 RF: 1 Discharge Orders: Discharge ED (Routine); Ordered 10/22/20 Ordered By: Toan Woods Referrals: Bozena Rodriguez DO [Primary Care Provider] - Discharge Diet: Regular Discharge Activity: Increase activity as tolerated Patient Instructions: Acute Pyelonephritis (ED) Activity Restrictions/Additional Instructions: Follow-up with medical provider as directed in 7 to 10 days for reevaluation. Take medications as prescribed. Drink plenty of fluids to help flush out kidney infection. Take [id number] Tylenol or ibuprofen per bottle instructions for pain or fevers. Return to the ER or your medical provider if condition worsens. Please read and understand discharge instructions. If any questions, please ask. Coding Level of Care Code ED Dock Loader for Chg Fwd Exam Comprehensive
[2020-10-21 22:38] VITALS: BP 137/92; PULSE 105; RESP 16; O2SAT 98
--- NOTE | 2020-10-21 22:48 | CTR_ITS ---
PROCEDURE INFORMATION: Exam: CT Abdomen And Pelvis Without Contrast Exam date and time: 10/21/2020 11:21 PM Age: 40 years old Clinical indication: Abdominal pain; Right; Prior surgery; Surgery date: 6+ months; Surgery type: Gb, appy; Patient HX: C/O R flank pain w nausea; Additional info: Right flank pain TECHNIQUE: Imaging protocol: Computed tomography of the abdomen and pelvis without contrast. Radiation optimization: All CT scans at this facility use at least one of these dose optimization techniques: automated exposure control; mA and/or kV adjustment per patient size (includes targeted exams where dose is matched to clinical indication); or iterative reconstruction. COMPARISON: CT Chest/Abdomen/Pelvis w IV* 05/04/2019 2:13 PM RADIATION DOSE METRICS: Total DLP (mGy-cm): 1117.26 FINDINGS: Lungs: Interval mild bilateral dependent atelectasis. Liver: Still no apparent liver disease. Gallbladder and bile ducts: Cholecystectomy again evident. No interval significant biliary ductal dilatation. Pancreas: Still no suggestion of pancreatic disease. Spleen: Still no splenomegaly. Adrenal glands: Still no adrenal mass. Kidneys and ureters: Interval minimal prominence of the right renal pelvis and mild dilatation of the upper right ureter along with mild thickening of their slaughter. Still no hydronephrosis or ureteral stone. Stomach and bowel: Nondistended stomach. No obstruction. No apparent mucosal thickening. Appendix: Appendectomy again apparent. Intraperitoneal space: Still no free air. Vasculature: Continued moderate right and mild left ovarian varices. Slight right pelvic varices still likely. Still no aortic aneurysm. Lymph nodes: Interval increase in size of a node between the inferior aorta and the IVC, but normal short axis diameter of this node. Interval increase in size and/or slight enlargement of several right lower mesenteric nodes and appearance of a few small foci of haziness in the superior mesenteric fat. Urinary bladder: Unremarkable as visualized. Reproductive: Interval increase in the retroflexion of the uterus. Bones/joints: A few old minimal compression fractures again evident. Interval slight worsening of the small marginal spurs of both femoral heads. No interval significant hip joint narrowing. Soft tissues: Interval increase in size of the phlebolith in the subcutaneous fat of the lateral left lower hip region. CT/CT kidney stone [id number] IMPRESSION: 1. Interval appearance of findings suggestive of mesenteric adenitis. Interval appearance of the right renal pelvic and ureteral findings raising the possibility of pyelonephritis, also. 2. Continued moderate right and mild left ovarian varices and probable slight right pelvic varices. Other findings detailed above. Radiation Dose CTDIVOL = (mGy): DLP = 1117.26 (mGy-cm)
[2020-10-21 22:54] VITALS: PULSE 104; RESP 16; O2SAT 98
[2020-10-21] MEDS: sodium chloride 0.9% 1,000 ML 999 ML IV (22:58)
[2020-10-21 23:00] VITALS: BP 129/80
[2020-10-21 23:02] LABS: Basophils # 0.1 10^3/uL (0.0-0.1); Basophils % 0.5 %; Eosinophils # 0.2 10^3/uL (0.0-0.8); Eosinophils % 1.4 %; Hematocrit 40.9 % (37.0-47.0); Hemoglobin 13.3 g/dL (11.5-15.3); Mean Corpuscular HGB Conc 32.5 g/dL (30.0-36.0); Mean Corpuscular Hemoglobin 32.8 pg (28.0-34.0); Mean Corpuscular Volume 100.7 fL (81-99); Mean Platelet Volume 9.6 fL (7.4-10.4); Monocytes # 0.8 10^3/uL (0.2-0.9); Monocytes % 6.6 %; Neutrophils # 8.24 10^3/uL (1.8-7.7); Neutrophils % 67.2 %; Nucleated Red Blood Cells % 0 %; Platelet Count 398 10^3/cmm (130-400); Red Blood Count 4.06 10^6/uL (4.1-5.3); Red Cell Distribution Width 12.3 % (12.1-15.1); White Blood Count 12.3 10^3/uL (4.0-10.0)
[2020-10-21 23:14] LABS: HCG, Serum Qual Negative (Negative)
[2020-10-21 23:14] LABS: Bilirubin Urine Neg (Negative); Blood Urine 2+ (Negative); Glucose Urine UA Norm (Normal); Ketones Urine Negative (Negative); Leukocyte Esterase Urine 2+ (Negative); Nitrate Urine Positive (Negative); Protein Urine Neg (Negative); Urine Color Yellow (Yellow); Urobilinogen Urine Norm (Negative); pH Urine 5 (5-7)
[2020-10-21 23:19] LABS: Add Urine Culture? No; Bacteria Urine 2+ /hpf; RBC Urine TOO NUMEROUS TO CNT /hpf (0-2); Squamous Epithelial Cell Urine 15-25 /hpf (0-5); WBC Urine TOO NUMEROUS TO CNT /hpf (0-5)
[2020-10-21 23:28] LABS: Alanine Aminotransferase 22 U/L (0-33); Albumin Level 3.9 g/dL (3.5-5.2); Alkaline Phosphatase 80 IU/L (35-105); Anion Gap 13.5 (5-19); Aspartate Amino Transferase 12 U/L (0-32); Blood Urea Nitrogen 6 mg/dL (6-20); Calcium 8.7 mg/dL (8.5-10.5); Carbon Dioxide 24 mmol/L (22-29); Chloride 104 mmol/L (98-107); Globulin 3.2 g/dL (1.3-4.6); Glucose 90 mg/dL (65-115); Lipase 32 U/L (13-60); Osmolality Calculated 283 mOsm/kg (285-295); Potassium 3.5 mmol/L (3.5-5.1); Sodium 138 mmol/L (136-145); Total Bilirubin 0.2 mg/dL (0.15-1.2); Total Protein 7.1 g/dL (6.6-8.7)
[2020-10-21] MEDS: cefTRIAXone 2,000 MG in sodium chloride 0.9% (plus) 50 ML 100 MG IV (23:48)
[2020-10-21 23:49] VITALS: BP 130/91; PULSE 78; RESP 17; O2SAT 99
[2020-10-22 00:40] VITALS: PULSE 92; RESP 16; O2SAT 100
[2020-10-22 00:48] VITALS: BP 130/78; PULSE 94; RESP 18; O2SAT 100
== END 2020-10-22 00:51 | disposition home or self-care (01) ==
PROVIDERS: Emergency Provider Physician Assistant; PCP Family Medicine
DX: N12 Tubulo-interstitial nephritis, not specified as acute or chronic (principal); I10 Essential (primary) hypertension; F17.210 Nicotine dependence, cigarettes, uncomplicated
CPT/HCPCS: 74176; 80053; 81001; 83690; 84703; 85025; 96365; 99283; J0696; J7030

== ENCOUNTER → 2021-02-07 11:31 | Outpatient (BNVA) | payer OTHER, SELFPAY | PROVIDERS: PCP Family Medicine; Visit Provider Registered Nurse | DX: F31.75 Bipolar disorder, in partial remission, most recent episode depressed (principal) | CPT/HCPCS: 36415; 80053; 85025 ==

== ENCOUNTER → 2021-10-17 12:39 | Outpatient (BNVA) | payer OTHER, SELFPAY | PROVIDERS: PCP Family Medicine; Visit Provider Emergency Medicine | DX: Z20.822 Contact with and (suspected) exposure to COVID-19 (principal) | CPT/HCPCS: 87635 ==

== ENCOUNTER 2021-12-04 15:21 | Inpatient (IN) | payer SELFPAY ==
[2021-12-04 15:22] VITALS: BP 124/85; PULSE 93; RESP 18; TEMP 36.9; O2SAT 100; BMI 21.9
--- NOTE | 2021-12-04 15:22 | ED.C_ITS ---
HPI - Psych General: Chief Complaint: Psychiatric Symptoms Stated Complaint: SUICIDAL IDEATIONS Time Seen by Provider: 12/04/21 15:22 History of Present Illness: Ms Miller is a 41-year-old lady with significant past medical history of psychiatric disorder who presents to the emergency department due to depression with suicidal ideation. She reports last hospitalization in 2019 and essentially since that time she has not had any medications. She has kind of just been getting by with good days and bad days. She has had increased social stressors lately including the of her best friend. She got into an argument last night with her ex- and daughter. She intentionally cut her wrist with hope to . Intensity is moderate to severe. Course has been worsening. She denies medical complaints. She is up-to-date on her Tdap. No other specific changes in health, exacerbating, or alleviating factors identified. Duration: getting worse History of same: Yes Context: not taking psychiatric medications and significant life stressor Review of Systems General: Reports: 10 or more systems reviewed and unremarkable except in HPI and below PFSH ED PFSH: Medical History Adjustment disorder Anxiety Bipolar 1 disorder, depressed, severe Bipolar disorder, in partial remission, most recent episode depressed Chronic schizophrenia Deviated septum Drinking binge Generalized anxiety disorder Hypertension Intentional self-harm Nasal obstruction Nasal turbinate hypertrophy Nicotine dependence, cigarettes, uncomplicated Obsessive-compulsive personality disorder Psychiatric care Surgical History History of appendectomy History of cholecystectomy Hx laparoscopic cholecystectomy Hx of appendectomy Family History Grandmother CAD (coronary artery disease) Diabetes Hyperlipidemia Hypertension Father CAD (coronary artery disease) Cancer Hyperlipidemia Hypertension Psychiatric illness Grandfather Hyperlipidemia Hypertension Stroke Social History Smoking and tobacco status: current every day smoker cigarettes Packs smoked per day: 1.5 Quit status (tobacco): considering quitting Second hand smoke exposure: Yes Alcohol intake: current Alcohol intake frequency: few times a week Household members: spouse and children Housing: House Female Reproductive History: Date of last menstrual period: 11/06/19 Spontaneous abortions: No Physical Exam Const: COMMON NORMALS: alert GENERAL APPEARANCE: cooperative and well developed HENMT: COMMON NORMALS: normocephalic and atraumatic HEAD & SCALP: normocephalic and atraumatic Eye: COMMON NORMALS: conjunctivae normal CONJUNCTIVA: Yes conjunctivae normal SCLERA: sclerae normal Neck/C-Spine: COMMON NORMALS: supple GENERAL: Yes trachea midline Resp: COMMON NORMALS: clear to auscultation bilaterally EFFORT & INSPECTION: Yes able to speak in complete sentences AUSCULTATION: clear to auscultation bilaterally Cardio: COMMON NORMALS: regular rate and regular rhythm RATE: regular rate RHYTHM: regular rhythm GI: COMMON NORMALS: Soft to palpation PALPATION: Yes Soft to palpation and No Tenderness to palpation present (GI) Extremity: NARRATIVE EXTREMITY EXAM: Approximately 10 cm superficial laceration longitudinally oriented on the left anterior arm, no active bleeding, distal CMS intact. GENERAL: Yes normal exam except as noted and No edema Neuro: COMMON NORMALS: moves all extremities SENSORIUM/ORIENTATION: Yes alert and No Orientation impaired Psych: ATTITUDE: Yes Withdrawn affect present MOOD & AFFECT: Yes depressed mood THOUGHT CONTENT: Yes Suicidality present Skin: NARRATIVE SKIN EXAM: See extremity Course ED course: - Patient was seen and evaluated by me at bedside -Vital signs obtained - Initial evaluation notable for exam as above - Labs personally interpreted by me -Nicotine patch given - Labs notable for minimal leukocytosis which is nonspecific. No acute metabolic derangements contributing to patient symptoms. UDS screen positive for amphetamines - Upon serial reexamination after treatment the patient was similar - Based on patient history, evaluation, and testing as interpreted the most likely cause of the patient's condition is suicidal ideation, depression, suicide attempt - The results of ED evaluation were discussed with the patient including plan for admission due to requirement for level of care not available if discharged to prevent significant worsening/deterioration. - Admitting service was contacted and Dr Farias with the psychiatry service agreed to admit the patient - Patient was admitted without further deterioration or significant events. Note: Click bubbles or prepopulated bose in note writing are used for assistance with data collection and billing and are inherently more limited than narrative and other text portions of this note. Please use narrative for additional clinical history and defer to narrative/free test for any case of contradictory information. If information appears in only free text or click bubble it should be considered present or absent as reported. Please contact note fiction and nonfiction writer prose for clarifications of clinical information or contradictory information. MDM is a brief summary, contradictory or erroneous seeming information should be clarified and full note should be reviewed. Vital Signs: Vital signs: Vital Signs Temperature 98 F 12/05/21 17:35 Pulse Rate 62 12/05/21 17:35 Respiratory Rate 17 12/05/21 17:35 Blood Pressure 138/72 12/05/21 17:35 Pulse Oximetry 98 12/05/21 17:35 MDM - Psych Medical Decision Making 41-year-old lady with psychiatric history presenting with suicidal ideation and attempt due to significant recent stressors. Attempt by laceration to arm no repair needed. Tdap up-to-date. Admitted to the medical center for definitive management. Medical Records I reviewed the patient's medical records. Lab Data I reviewed the patient's lab results. : 12/04/21 15:27 12/04/21 15: Laboratory Results WBC 10.5 10^3/uL (4.0-10.0) H 12/04/21 15: RBC 4.25 10^6/uL (4.1-5.3) 12/04/21 15:27 Hgb 13.6 g/dL (11.5-15.3) 12/04/21 15: Hct 42.9 % (37.0-47.0) 12/04/21 15: MCV 100.9 fl (81-99) H 12/04/21 15: MCH 32.0 pg (28.0-34.0) 12/04/21 15: MCHC 31.7 g/dL (30.0-36.0) 12/04/21 15:27 RDW 12.5 % (12.1-15.1) 12/04/21 15:27 Plt Count 407 10^3/cmm (130-400) H 12/04/21 15:27 MPV 9.6 fL (7.4-10.4) 12/04/21 15: Neut % (Auto) 66.1 % 12/04/21 15: Lymph % (Auto) 27.4 % 12/04/21 15:27 Upton % (Auto) 4.3 % 12/04/21 15:27 Eos % (Auto) 1.4 % 12/04/21 15:27 Baso % (Auto) 0.5 % 12/04/21 15:27 Neut # (Auto) 6.96 10^3/uL (1.8-7.7) 12/04/21 15:27 Lymph # (Auto) 2.9 10^3/uL (0.8-4.8) 12/04/21 15:27 Upton # (Auto) 0.5 10^3/uL (0.2-0.9) 12/04/21 15:27 Eos # (Auto) 0.2 10^3/uL (0.0-0.8) 12/04/21 15: Baso # (Auto) 0.1 10^3/uL (0.0-0.1) 12/04/21 15: Nucleated RBC % (auto) 0 % 12/04/21 15: Nucleated RBCs # 0.0 /100WBC 12/04/21 15: Sodium 141 mmol/L (136-145) 12/04/21 15:27 Potassium 3.8 mmol/L (3.5-5.1) 12/04/21 15: Chloride 106 mmol/L (98-107) 12/04/21 15: Carbon Dioxide 28 mmol/L (22-29) 12/04/21 15:27 Anion Gap 10.8 (5-19) 12/04/21 15:27 BUN 13 mg/dL (6-20) 12/04/21 15: Creatinine 0.7 mg/dL (0.5-0.9) 12/04/21 15:27 GFR Calculation 91.3 mL/min (90-130) 12/04/21 15: Glucose 131 mg/dL (65-115) H 12/04/21 15:27 Calculated Osmolality 294 mOsm/kg (285-295) 12/04/21 15:27 Calcium 9.8 mg/dL (8.5-10.5) 12/04/21 15:27 Total Bilirubin 0.6 mg/dL (0.15-1.2) 12/04/21 15: AST 16 U/L (0-32) 12/04/21 15:27 ALT 22 U/L (0-33) 12/04/21 15:27 Alkaline Phosphatase 73 IU/L (35-105) 12/04/21 15: Total Protein 6.7 g/dL (6.6-8.7) 12/04/21 15:27 Albumin 4.2 g/dL (3.5-5.2) 12/04/21 15:27 Globulin 2.5 g/dL (1.3-4.6) 12/04/21 15:27 TSH 0.38 uIU/mL (0.27-4.20) 12/04/21 15:27 HCG, Qual Negative (Negative) 12/04/21 16:48 Salicylates < 0.3 mg/dL (3-10) L 12/04/21 15:27 Urine Opiates Screen Negative ng/mL (Negative) 12/04/21 16:48 Acetaminophen < 5.0 ug/mL (10-30) L 12/04/21 15:27 Ur Barbiturates Screen Negative ng/mL (Negative) 12/04/21 16:48 Ur Phencyclidine Scrn Negative ng/mL (Negative) 12/04/21 16:48 Ur Amphetamines Screen Positive ng/mL (Negative) H 12/04/21 16:48 U Benzodiazepines Scrn Negative ng/mL (Negative) 12/04/21 16:48 Urine Cocaine Screen Negative ng/mL (Negative) 12/04/21 16:48 U Marijuana (THC) Screen Negative ng/mL (Negative) 12/04/21 16:48 Ethyl Alcohol < 10 mg/dL (0-10) 12/04/21 15:27 Discharge Plan Discharge Patient Disposition: Admitted As Inpatient Admit Provider: Anirudh Farias Clinical Impression: Suicidal ideation, Depression, Intentional self-harm Condition: Stable Discharge Diet: Regular Discharge Activity: Resume usual activity Coding Level of Care Code ED 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
[2021-12-04 15:49] VITALS: BP 124/85; PULSE 93; RESP 18; O2SAT 100
[2021-12-04] MEDS: nicotine 21 mg Patch 1 PATCH TRANSDERMA (16:09)
[2021-12-04 16:17] LABS: Basophils # 0.1 10^3/uL (0.0-0.1); Basophils % 0.5 %; Eosinophils # 0.2 10^3/uL (0.0-0.8); Eosinophils % 1.4 %; Hematocrit 42.9 % (37.0-47.0); Hemoglobin 13.6 g/dL (11.5-15.3); Lymphocytes # 2.9 10^3/uL (0.8-4.8); Lymphocytes % 27.4 %; Mean Corpuscular HGB Conc 31.7 g/dL (30.0-36.0); Mean Corpuscular Volume 100.9 fl (81-99); Mean Platelet Volume 9.6 fL (7.4-10.4); Monocytes # 0.5 10^3/uL (0.2-0.9); Monocytes % 4.3 %; Neutrophils # 6.96 10^3/uL (1.8-7.7); Neutrophils % 66.1 %; Nucleated Red Blood Cells % 0 %; Platelet Count 407 10^3/cmm (130-400); Red Blood Count 4.25 10^6/uL (4.1-5.3); Red Cell Distribution Width 12.5 % (12.1-15.1); White Blood Count 10.5 10^3/uL (4.0-10.0)
[2021-12-04 16:35] LABS: Acetaminophen < 5.0 ug/mL (10-30); Alanine Aminotransferase 22 U/L (0-33); Albumin Level 4.2 g/dL (3.5-5.2); Alcohol Level < 10 mg/dL (0-10); Alkaline Phosphatase 73 IU/L (35-105); Anion Gap 10.8 (5-19); Aspartate Amino Transferase 16 U/L (0-32); Blood Urea Nitrogen 13 mg/dL (6-20); Calcium 9.8 mg/dL (8.5-10.5); Carbon Dioxide 28 mmol/L (22-29); Chloride 106 mmol/L (98-107); Creatinine Clr Calc Pharmacy 102.0175; Globulin 2.5 g/dL (1.3-4.6); Glomerular Filtration Rate 91.3 mL/min (90-130); Glucose 131 mg/dL (65-115); Osmolality Calculated 294 mOsm/kg (285-295); Potassium 3.8 mmol/L (3.5-5.1); Salicylate < 0.3 mg/dL (3-10); Sodium 141 mmol/L (136-145); Thyroid Stimulating Hormone 0.38 uIU/mL (0.27-4.20); Total Bilirubin 0.6 mg/dL (0.15-1.2); Total Protein 6.7 g/dL (6.6-8.7)
[2021-12-04 17:00] LABS: HCG Qualitative Urine. Negative (Negative)
[2021-12-04 17:15] LABS: Amphetamines Screen Urine Positive (Negative); Barbiturates Screen Urine Negative (Negative); Benzodiazepines Screen Urine Negative (Negative); Cocaine Screen Urine Negative (Negative); Opiate Screen Urine Negative (Negative); PCP Screen Urine Negative (Negative); THC Screen Urine Negative (Negative)
[2021-12-04 19:50] VITALS: BP 105/74; PULSE 95; RESP 17; O2SAT 97
[2021-12-04 20:16] VITALS: BP 95/62; PULSE 103; RESP 18; TEMP 36.8; O2SAT 98
[2021-12-04] MEDS: trazodone 50 mg Tablet PO (21:02)
[2021-12-04 22:00] VITALS: BP 102/68; PULSE 95; RESP 18; TEMP 36.7; O2SAT 98
[2021-12-05 05:01] VITALS: BP 90/52; PULSE 71; RESP 16; TEMP 36.2; O2SAT 96
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
[2021-12-05] MEDS: nicotine 2 mg Gum BUCCAL ×2 (12:28→14:51)
[2021-12-05] MEDS: OLANZapine 5 mg ODT PO (12:28)
--- NOTE | 2021-12-05 12:40 | NPU.GN ---
[facility] Unit Group Topic:Dice Breaker General Mood of Group Patient did not attend group today. Patient was sleeping. CSS met with patient and discussed [facility] services. Patient would like [facility] services and CSS aided client in completing the [facility] intake packet. CSS is also referring patient to [facility] services with [facility] per patients request.
[2021-12-05 14:00] VITALS: BP 138/72; PULSE 62; RESP 17; TEMP 36.6; O2SAT 98
[2021-12-05] MEDS: sertraline 50 mg Tablet PO (16:45)
[2021-12-05 17:35] VITALS: BP 138/72; PULSE 62; RESP 17; TEMP 36.6; O2SAT 98
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
== END 2021-12-05 17:37 | disposition left against medical advice (07) | DRG 885 ==
LOC: ER 18:18 → NP 18:56
PROVIDERS: Admitting Provider Psychiatry & Neurology Psychiatry; Emergency Provider Emergency Medicine; PCP Family Medicine; Visit Provider Psychiatry & Neurology Psychiatry
DX: F31.4 Bipolar disorder, current episode depressed, severe, without psychotic features (principal); F15.20 Other stimulant dependence, uncomplicated; T14.91XA Suicide attempt, initial encounter; X78.9XXA Intentional self-harm by unspecified sharp object, initial encounter; F60.89 Other specific personality disorders; F41.1 Generalized anxiety disorder; F17.210 Nicotine dependence, cigarettes, uncomplicated; F43.10 Post-traumatic stress disorder, unspecified; F42.9 Obsessive-compulsive disorder, unspecified; F43.0 Acute stress reaction; Z91.51 Personal history of suicidal behavior; Z81.8 Family history of other mental and behavioral disorders; Z53.29 Procedure and treatment not carried out because of patient's decision for other reasons
CPT/HCPCS: 80053; 80306; 80307; 81025; 84443; 85025; 97150; 97165; 99285

== ENCOUNTER → 2022-04-24 13:34 | Outpatient (BNVA) | payer OTHER, SELFPAY | PROVIDERS: PCP Family Medicine; Visit Provider Registered Nurse | DX: Z79.899 Other long term (current) drug therapy (principal) | CPT/HCPCS: 80053; 80061; 83036; 84443; 85025 ==

== ENCOUNTER 2022-08-25 14:37 | Outpatient (CLI) | payer MEDICAID, SELFPAY ==
--- NOTE | 2022-08-25 14:49 | XR_ITS ---
WS: [id number] Exam: XR elbow RT 2V Date/Time of Exam: 08/25/2022 2:51 PM Reason For Exam: R ELBOW JOINT PAIN Findings: There are no fractures, soft tissue swelling, or calcifications. The elbow shows normal bony alignme nt. There is no irregularity of the bony architecture. XR/XR elbow RT IMPRESSION: Negative right elbow.
== END 2022-08-25 14:38 | disposition home or self-care (01) ==
PROVIDERS: PCP Family Medicine; Visit Provider Family Medicine
DX: M25.521 Pain in right elbow (principal)
CPT/HCPCS: 73070

== ENCOUNTER 2022-12-10 07:36 | Outpatient (CLI) | payer MEDICAID, SELFPAY ==
--- NOTE | 2022-12-10 | US_ITS ---
WS: [id number] ULTRASOUND SOFT TISSUES LEFT neck. HISTORY: CERVICAL LYMPHADENOPATHY COMPARISON: None available. TECHNIQUE: 2-D and color Doppler imaging is submitted. Ultrasound is directed along the LEFT neck in the palpable region. Palpable area corresponds to small benign-appearing lymph node measuring 6 x 4 x 7 mm. There is an additional larger lymph node or 2 ad jacent lymph nodes with a maximum diameter 3.0 cm in the LEFT cervical chain. Normal fatty hilum pers ists. US/US soft tissue head neck [id number] IMPRESSION: Normal LEFT cervical chain lymph nodes.
== END 2022-12-10 07:37 | disposition home or self-care (01) ==
LOC: RAD 07:38
PROVIDERS: PCP Family Medicine; Visit Provider Family Medicine
DX: R59.0 Localized enlarged lymph nodes (principal)
CPT/HCPCS: 76536

== ENCOUNTER → 2023-01-28 13:32 | Outpatient (BNVA) | payer MEDICAID, SELFPAY | PROVIDERS: PCP Family Medicine; Visit Provider Nurse Practitioner Psychiatric/Mental Health | DX: F31.4 Bipolar disorder, current episode depressed, severe, without psychotic features (principal); Z79.899 Other long term (current) drug therapy | CPT/HCPCS: 80061; 83036 ==

== ENCOUNTER 2023-03-11 09:47 | Emergency (ER) | payer MEDICAID, SELFPAY ==
[2023-02-10 16:41] VITALS: BP 129/73; BMI 28.6
[2023-03-11 09:52] VITALS: BP 124/68; PULSE 114; RESP 16; TEMP 36.7; O2SAT 95; BMI 29.0
--- NOTE | 2023-03-11 09:56 | XRR_ITS ---
PROCEDURE INFORMATION: Exam: XR Chest Exam date and time: 03/11/2023 10:13 AM Age: 43 years old Clinical indication: Pain; Angina pectoris; Patient HX: Dizziness; Additional info: Chest pain TECHNIQUE: Imaging protocol: Radiologic exam of the chest. Views: 1 view. Total images: 244 COMPARISON: CT chest abdpel w/*[id number] 05/04/2019 2:13 PM FINDINGS: Lungs: Unremarkable. No consolidation. Pleural spaces: Unremarkable. No pleural effusion. No pneumothorax. Heart/Mediastinum: Unremarkable. No cardiomegaly. Bones/joints: Unremarkable. XR/XR chest 1V portable [id number] IMPRESSION: No acute findings.
--- NOTE | 2023-03-11 10:02 | ECG_ITS ---
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 Measurements Intervals [place] Rate: 99 P: 61 PA: 142 QRS: 52 QRSD: 86 T: 46 QT: 349 QTc: 448 Interpretive Statements SINUS RHYTHM LEFT ATRIAL ENLARGEMENT [-0.15mV P-WAVE IN V1/V2] SEPTAL MYOCARDIAL INFARCTION , OF INDETERMINATE AGE [40+ ms Q WAVE IN V1/V2] Compared to ECG 04/29/2020 19:04:39 Myocardial infarct finding now present Electronically Signed On 03-11-2023 12:35:55 CDT by Maisha Justice M.D. [email or web address]
[2023-03-11 10:08] VITALS: BP 143/94; PULSE 104; RESP 18; O2SAT 97
--- NOTE | 2023-03-11 10:09 | W.ED.DIZZY ---
HPI - Dizziness General: Chief Complaint: Arrhythmia/Palpitations Stated Complaint: Dizziness, HR irregular, Weakness Time Seen by Provider: 03/11/23 09:49 Source: patient Mode of arrival: ambulatory Limitations: no limitations History of Present Illness: HPI Narrative: Patient is a 43-year-old female who presents to ED today with a complaint of intermittent episodes of dizziness and weakness. She states symptoms have been present over the past 4 to 5 days. She states she will have episodes lasting a few minutes where she will become dizzy and weak. 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 Patient states she does have a history of sinus tachycardia that was previously treated with a beta-shilpi however she states she took herself off of this medication. She has not had any recent changes on her current medication doses nor has she started any new medications recently. States in between episodes she will be completely asymptomatic. She does not complain of a headache or neck pain. No visual changes. Patient states upon arrival to the ED symptoms have resolved and she is currently asymptomatic. MD elicited complaint: dizziness and other (weakness) Onset (ago): day(s) Timing: intermittent Severity: moderate Exacerbating factors: nothing Relieving factors: nothing Associated symptoms: Reports no associated symptoms; Denies chest pain, chills, headache(s), malaise, nausea, palpitations, syncope or vomiting Associated neuro symptoms: Reports no associated symptoms; Deny numbness in extremities Stroke scale total: 0 Review of Systems Const: Denies: fever(s), chills, body aches, fatigue or malaise Eyes: Denies: change in vision or blurry vision Card: Denies: chest pain, palpitations, irregular heart rhythm, edema, swelling of feet/ankles, lightheadedness, syncope, pre-syncope, dyspnea on exertion, orthopnea, leg pain with exertion or acrocyanosis Resp: Denies: dyspnea, productive cough or pain on inspiration GI: Denies: abdominal pain, nausea, vomiting, heartburn or diarrhea : Denies: dysuria Musc: Denies: neck pain, back pain, extremity pain, extremity swelling or joint pain Skin/Breast: Denies: rash Neuro: Reports: dizziness (resolved now) and other (weakness-gone now); Denies: headache(s), numbness in extremities, weakness in extremities, sensory changes, difficulty walking or seizure-like activity PFSH ED PFSH: Medical History Adjustment disorder Alcohol use disorder, severe, in early remission, dependence Anxiety Bipolar 1 disorder, depressed, severe Bipolar disorder, in partial remission, most recent episode depressed Chronic schizophrenia Deviated septum Drinking binge Dyslipidemia Generalized anxiety disorder Hypertension Intentional self-harm Methamphetamine use disorder, moderate, in early remission Nasal obstruction Nasal turbinate hypertrophy Nicotine dependence, cigarettes, uncomplicated Obsessive-compulsive personality disorder Psychiatric care Surgical History History of appendectomy History of cholecystectomy Hx laparoscopic cholecystectomy Hx of appendectomy Family History Grandmother CAD (coronary artery disease) Diabetes Hyperlipidemia Hypertension Father CAD (coronary artery disease) Cancer Hyperlipidemia Hypertension Psychiatric illness Grandfather Hyperlipidemia Hypertension Stroke Social History Smoking and tobacco status: current every day smoker cigarettes Packs smoked per day: 1 [ Other cigarette details: since ] Quit status (tobacco): not considering quitting Second hand smoke exposure: No Alcohol intake: former Year of sobriety/quit date alcohol: 2021 Former alcohol use details: Sober since February 2022 Substance/Drug Use: former Date of last use: 2021 Last substance use date: 03/06/22 Last substance use time: 12:00 Other details last substance use: Last used Meth February 2022, smoked and snorted. Adopted: No Caregiver/support person: No Lives independently: Yes Housing: House Number of children: 3 Number of grandchildren: 5 Highest education level completed: 9th Grade Current occupational status: employed Current occupational exposures/hazards: No Pets and animals: Yes Pets & animals: dog(s) Leisure activites: other Leisure activities details: play on phone and with dog Do you think of yourself as: Straight/Heterosexual Current gender identity: Female Marleny/Rastafarian: None Special marleny needs: No Agree to transfusion: Yes Financial difficulty paying for basics: Not Very Hard Female Reproductive History: Para: 3 Spontaneous abortions: No Physical Exam Const: COMMON NORMALS: no acute distress, patient oriented x3, no limitations, alert and well nourished GENERAL APPEARANCE: cooperative HENMT: COMMON NORMALS: normocephalic and atraumatic HEAD & SCALP: normal to inspection, normocephalic and atraumatic Eye: GENERAL EYE: appearance normal, both eyes and all related structures OTHER: no nystagmus Neck/C-Spine: COMMON NORMALS: full ROM, no lymphadenopathy, supple and no meningeal signs Chest: COMMONS NORMALS: normal inspection of the chest and normal palpation of entire chest wall Resp: COMMON NORMALS: normal respiratory effort and clear to auscultation bilaterally AUSCULTATION: clear to auscultation bilaterally Cardio: COMMON NORMALS: regular rhythm RATE: tachycardic RHYTHM: regular rhythm GI: COMMON NORMALS: Normal to inspection, nondistended, normoactive bowel sounds present, Soft to palpation, non-tender, No hepatosplenomegaly present and no masses PALPATION: Yes Soft to palpation and Yes No hepatosplenomegaly present : COMMON NORMALS: Yes no CVA tenderness BLADDER/KIDNEY EXAM: Yes no CVA tenderness Back/Pelvis: COMMON NORMALS: no CVA tenderness and thoracic and lumbar spine normal to inspection Extremity: COMMON NORMALS: normal to inspection, capillary refill normal, no joint enlargement, no clubbing, cyanosis or edema, no calf tenderness and no pedal edema GENERAL: Yes normal exam except as noted Neuro: [place] COMA SCALE: document GCS findings [place] coma scale eye opening: Spontaneous [place] coma scale verbal response: Orientated [place] coma scale motor response: Obey commands [place] coma scale total score: 15 COMMON NORMALS: patient oriented x3, CN's II-XII intact bilaterally, moves all extremities, no focal motor deficits, no sensory deficits noted and gait normal SENSORIUM/ORIENTATION: Yes alert MENINGEAL SIGNS: Yes no meningeal signs Skin: COMMON NORMALS: no rashes or lesions noted GENERAL SKIN EXAM: no rashes or lesions noted Course Vital Signs: Vital signs: Vital Signs Temperature 98.0 F 03/11/23 09:52 Pulse Rate 100 03/11/23 11:15 Respiratory Rate 16 03/11/23 11:15 Blood Pressure 143/97 03/11/23 11:15 Pulse Oximetry 98 03/11/23 11:15 Oxygen Delivery Me thod Room Air 03/11/23 09:52 MDM - Dizziness Medical Decision Making Patient appears in no acute distress. Her vital signs are stable. She does have episodes of sinus tachycardia although this has not seemed to elicit any dizziness while here. Blood work is nonactionable. TSH is normal. Baseline troponin is negative. EKG showing sinus rhythm. Recommend follow-up with her primary care provider. They can determine need for a possible Holter monitor and referral. States she would like to get back on her beta-shilpi to see if this possibly will cut down on episodes of dizziness. I think this is reasonable. I will place her on metoprolol 12.5 mg twice daily. Return to ED precautions given. Lab Data 03/11/23 10:12 03/11/23 10:12 Radiology Impressions Chest X-Ray 03/11/23 09:56 IMPRESSION: No acute findings. Laboratory Results WBC 11.4 10^3/uL (4.0-10.0) H 03/11/23 10:12 RBC 4.44 10^6/uL (4.1-5.3) 03/11/23 10:12 Hgb 14.5 g/dL (11.5-15.3) 03/11/23 10:12 Hct 43.8 % (37.0-47.0) 03/11/23 10:12 MCV 98.6 fl (81-99) 03/11/23 10:12 MCH 32.7 pg (28.0-34.0) 03/11/23 10:12 MCHC 33.1 g/dL (30.0-36.0) 03/11/23 10:12 RDW 12.2 % (12.1-15.1) 03/11/23 10:12 Plt Count 333 10^3/cmm (130-400) 03/11/23 10:12 MPV 9.3 fL (7.4-10.4) 03/11/23 10:12 Neut % (Auto) 72.5 % 03/11/23 10:12 Lymph % (Auto) 21.4 % 03/11/23 10:12 [place] % (Auto) 4.6 % 03/11/23 10:12 Eos % (Auto) 0.6 % 03/11/23 10:12 Baso % (Auto) 0.6 % 03/11/23 10:12 Neut # (Auto) 8.25 10^3/uL (1.8-7.7) H 03/11/23 10:12 Lymph # (Auto) 2.4 10^3/uL (0.8-4.8) 03/11/23 10:12 [place] # (Auto) 0.5 10^3/uL (0.2-0.9) 03/11/23 10:12 Eos # (Auto) 0.1 10^3/uL (0.0-0.8) 03/11/23 10:12 Baso # (Auto) 0.1 10^3/uL (0.0-0.1) 03/11/23 10:12 Nucleated RBC % (auto) 0 % 03/11/23 10:12 Nucleated RBCs # 0.0 /100WBC 03/11/23 10:12 Sodium 135 mmol/L (136-145) L 03/11/23 10:12 Potassium 4.0 mmol/L (3.5-5.1) 03/11/23 10:12 Chloride 101 mmol/L (98-107) 03/11/23 10:12 Carbon Dioxide 24 mmol/L (22-29) 03/11/23 10:12 Anion Gap 14.0 (5-19) 03/11/23 10:12 BUN 8 mg/dL (6-20) 03/11/23 10:12 Creatinine 0.7 mg/dL (0.5-0.9) 03/11/23 10:12 GFR Calculation 90.5 mL/min (90-130) 03/11/23 10:12 Glucose 91 mg/dL (65-115) 03/11/23 10:12 Calculated Osmolality 278 mOsm/kg (285-295) L 03/11/23 10:12 Calcium 9.2 mg/dL (8.5-10.5) 03/11/23 10:12 Total Bilirubin 0.4 mg/dL (0.15-1.2) 03/11/23 10:12 AST 10 U/L (0-32) 03/11/23 10:12 ALT 11 U/L (0-33) 03/11/23 10:12 Alkaline Phosphatase 85 U/L (35-105) 03/11/23 10:12 Troponin T Baseline 6 ng/L (0-10) 03/11/23 10:12 Total Protein 6.9 g/dL (6.6-8.7) 03/11/23 10:12 Albumin 4.3 g/dL (3.5-5.2) 03/11/23 10:12 Globulin 2.6 g/dL (1.3-4.6) 03/11/23 10:12 TSH 0.72 uIU/mL (0.27-4.20) 03/11/23 10:12 HCG, Qual Negative (Negative) 03/11/23 10:12 Discharge Plan Discharge Patient Disposition: Home Clinical Impression: Sinus tachycardia, Dizziness Condition: Stable Prescriptions: New metoprolol tartrate 25 mg tablet 12.5 mg PO BID Qty: 20 0RF No Action risperidone 1 mg tablet 2 mg PO DAILY 30 Days Qty: 60 1RF Rx Instructions: Take two tablets at bedtime; stop other dose bupropion HCl 300 mg tablet extended release 24 hr 300 mg PO QAM Qty: 30 1RF Rx Instructions: Take one tablet by mouth every morning Discharge Orders: Discharge ED (Routine); Ordered 03/11/23 Ordered By: Mi Hicks Referrals: Phyllis Singleton DO [Primary Care Provider] - Activity Restrictions/Additional Instructions: As we discussed please follow-up with your primary care provider for further evaluation and treatment. We discussed possibly an outpatient Holter monitor for further evaluation. You need to return to the ED for worsening dizziness, falls, chest pain, shortness of breath, difficulty breathing, severe palpitations or racing heart rate, any neurologic deficits, or any other concerns you may have. Coding Level of Care Code ED [facility] for Phil Courtney
[2023-03-11 10:23] LABS: Basophils # 0.1 10^3/uL (0.0-0.1); Basophils % 0.6 %; Eosinophils # 0.1 10^3/uL (0.0-0.8); Eosinophils % 0.6 %; Hematocrit 43.8 % (37.0-47.0); Hemoglobin 14.5 g/dL (11.5-15.3); Lymphocytes # 2.4 10^3/uL (0.8-4.8); Lymphocytes % 21.4 %; Mean Corpuscular HGB Conc 33.1 g/dL (30.0-36.0); Mean Corpuscular Hemoglobin 32.7 pg (28.0-34.0); Mean Corpuscular Volume 98.6 fl (81-99); Mean Platelet Volume 9.3 fL (7.4-10.4); Monocytes # 0.5 10^3/uL (0.2-0.9); Monocytes % 4.6 %; Neutrophils # 8.25 10^3/uL (1.8-7.7); Neutrophils % 72.5 %; Nucleated Red Blood Cells % 0 %; Platelet Count 333 10^3/cmm (130-400); Red Blood Count 4.44 10^6/uL (4.1-5.3); Red Cell Distribution Width 12.2 % (12.1-15.1); White Blood Count 11.4 10^3/uL (4.0-10.0)
[2023-03-11 10:37] LABS: HCG, Serum Qual Negative (Negative)
[2023-03-11 10:43] LABS: Troponin(5th) Baseline 6 ng/L (0-10)
[2023-03-11 10:50] LABS: Alanine Aminotransferase 11 U/L (0-33); Albumin Level 4.3 g/dL (3.5-5.2); Alkaline Phosphatase 85 U/L (35-105); Aspartate Amino Transferase 10 U/L (0-32); Blood Urea Nitrogen 8 mg/dL (6-20); Calcium 9.2 mg/dL (8.5-10.5); Carbon Dioxide 24 mmol/L (22-29); Chloride 101 mmol/L (98-107); Globulin 2.6 g/dL (1.3-4.6); Glomerular Filtration Rate 90.5 mL/min (90-130); Glucose 91 mg/dL (65-115); Osmolality Calculated 278 mOsm/kg (285-295); Sodium 135 mmol/L (136-145); Thyroid Stimulating Hormone 0.72 uIU/mL (0.27-4.20); Total Bilirubin 0.4 mg/dL (0.15-1.2); Total Protein 6.9 g/dL (6.6-8.7)
[2023-03-11 11:15] VITALS: BP 143/97; PULSE 100; RESP 16; O2SAT 98
== END 2023-03-11 11:16 | disposition home or self-care (01) ==
PROVIDERS: Emergency Provider Physician Assistant; PCP Family Medicine
DX: R00.0 Tachycardia, unspecified (principal); R42 Dizziness and giddiness; F17.210 Nicotine dependence, cigarettes, uncomplicated; E78.5 Hyperlipidemia, unspecified; I10 Essential (primary) hypertension
CPT/HCPCS: 36415; 71045; 80053; 84443; 84484; 84703; 85025; 93005; 99285

== ENCOUNTER 2023-03-30 14:14 | Outpatient (CLI) | payer MEDICAID, SELFPAY ==
[2023-02-10 16:41] VITALS: BP 129/73; BMI 28.6
--- NOTE | 2023-03-30 | USCV_ITS ---
Mary Dickinson Age: 43 Gender: F : 1980 Exam Date: 03/30/2023 15:07 Ordering Phys: Rachel Canales Technologist: [place] [facility] [place]: cp BP: 160 / 80 HR: 83 Rhythm: Sinus Technical Quality: Adequate MEASUREMENTS (Male / Female) Normal Values 2D ECHO LV Diastolic Diameter PLAX 4.7 cm 4.2 - 5.9 / 3.9 - 5.3 cm LV Systolic Diameter PLAX 2.9 cm LV Chamber Size 5.3 cm IVS Diastolic Thickness 1.2 cm 0.6 - 1.0 / 0.6 - 0.9 cm IVS Systolic Thickness 1.7 cm LVPW Diastolic Thickness 0.9 cm 0.6 - 1.0 / 0.6 - 0.9 cm LVPW Systolic Thickness 1.8 cm RV Chamber Size 3.5 cm LVOT Diameter 2.1 cm LV Ejection Fraction 2D Teich 68.2 % LV Ejection Fraction MOD 2C 56.8 % LV Ejection Fraction 2C AL 56.2 % LA Diameter 3.8 cm LA Width 4.0 cm LA Height 5.2 cm RA Width 3.9 cm RA Height 4.9 cm Aorta at Sinotubular Diameter 2.3 cm IVC Diameter 1.7 cm M-MODE Aortic Annulus Diameter 3.3 cm LA Ao Ratio MM 1.3 MV E Point Septal Separation 0.2 cm DOPPLER AV Peak Velocity 129.0 cm/s LVOT Peak Velocity 108.0 cm/s AV Area Cont Eq vti 3.7 cm squared AV Area Cont Eq pk 3.0 cm squared MV Peak Velocity 111.0 cm/s MV Area PHT 4.1 cm squared Mitral E to A Ratio 1.2 MV E' Velocity 58.0 cm/s Mitral E to MV E' Ratio 8.0 Mitral E to LV E' Lateral Ratio 6.7 Mitral E to LV E' Septal Ratio 9.9 TR Peak Velocity 97.0 cm/s TR Peak Gradient 3.8 mmHg TV Peak E Velocity 95.0 cm/s Right Atrial Pressure 3.0 mmHg Pulmonary Artery Systolic Pressu 6.8 mmHg PV Peak Velocity 101.0 cm/s FINDINGS Left Ventricle Left ventricle is normal size. LV systolic function is normal with EF of 55-60%. No regional wall motion abnormalities are seen. Diastolic function is normal Right Ventricle Normal in size and function Right Atrium Normal in size Left Atrium Normal in size Mitral Valve Structurally normal mitral valve. No significant stenosis or regurgitaiton. Aortic Valve Structurally normal aortic valve. No significant stenosis or regurgitation Tricuspid Valve Mild tricuspid regurgitation. Insufficient TR jet to calculate RVSP. Pulmonic Valve Not well visualized Pericardium Normal Aorta Normal in size IVC Appears to be normal CONCLUSIONS LV systolic function is normal with EF of 55 to 60%. Diastolic function is normal Mild tricuspid regurgitaiton. No comparison studies are available. Ruel Mims MD (Electronically Signed) Final Date: 11 April 2023 12:38 S
== END 2023-03-30 14:15 | disposition home or self-care (01) ==
PROVIDERS: PCP Family Medicine; Visit Provider Nurse Practitioner Family
DX: R07.9 Chest pain, unspecified (principal); R00.0 Tachycardia, unspecified
CPT/HCPCS: 93306

== ENCOUNTER 2023-06-29 15:39 | Outpatient (CLI) | payer MEDICAID, SELFPAY ==
[2023-02-10 16:41] VITALS: BP 129/73; BMI 28.6
[2023-06-30 14:29] LABS: Clostridium Difficile PCR NOT DETECTED (NOT DETECTED)
== END 2023-06-29 15:40 | disposition home or self-care (01) ==
LOC: LAB 15:43
PROVIDERS: PCP Nurse Practitioner Family; Visit Provider Nurse Practitioner Family
DX: R19.7 Diarrhea, unspecified (principal)
CPT/HCPCS: 83630; 87045; 87177; 87209; 87427; 87449; 87493

== ENCOUNTER 2023-12-05 11:35 | Emergency (ER) | payer OTHER, SELFPAY ==
[2023-02-10 16:41] VITALS: BP 129/73; BMI 28.6
[2023-12-05 11:52] VITALS: BP 101/62; PULSE 111; RESP 20; TEMP 36.8; O2SAT 98
--- NOTE | 2023-12-05 13:20 | PC.NURSE ---
THIS NURSE RECIEVED CALL FROM PHARMACY STATING ORDERED IMMUNOGLOBIN WAS IN PHARMACY AND THAT THE PHARMACY DID NOT HAVE ANY UNEXPIRED IMMUNOGLOBIN IN PHARMACY.
--- NOTE | 2023-12-05 13:23 | ED_ITS ---
HPI - Extremity Injury (Upper) 2 General: Chief Complaint: Needlestick/Injury/Exposure Stated Complaint: needle stick Time Seen by Provider: 12/05/23 12:51 History of Present Illness: The patient presents to the ER with a chief complaint of a needlestick injury. 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 The patient was inadvertently stuck by a syringe during the cleanup process. Following the needlestick injury, the patient experienced anger and frustration, and informed their employer about the incident. The patient washed their hands with soap and water immediately after the injury. The patient expresses concern about potential exposure to HIV and hepatitis. The needlestick injury occurred earlier today, and the patient is seeking prophylactic treatment for potential exposure to bloodborne pathogens. She reports that she was wearing gloves. She is unsure of her hepatitis vaccination status. Review of Systems 2 General: Reports: 10 or more systems reviewed and unremarkable except in HPI and below Const: Denies: fever(s) Card: Denies: palpitations or edema Resp: Denies: dyspnea Skin/Breast: Denies: rash PFSH ED 2 PFSH: Medical History Adjustment disorder Alcohol use disorder, severe, in early remission, dependence Anxiety Bipolar 1 disorder, depressed, severe Bipolar disorder, in partial remission, most recent episode depressed Chronic schizophrenia Deviated septum Drinking binge Dyslipidemia Generalized anxiety disorder Hypertension Intentional self-harm Methamphetamine use disorder, moderate, in early remission Nasal obstruction Nasal turbinate hypertrophy Nicotine dependence, cigarettes, uncomplicated Obsessive-compulsive personality disorder Psychiatric care Surgical History History of appendectomy History of cholecystectomy Hx laparoscopic cholecystectomy Hx of appendectomy Family History Grandmother CAD (coronary artery disease) Diabetes Hyperlipidemia Hypertension Father CAD (coronary artery disease) Cancer Hyperlipidemia Hypertension Psychiatric illness Grandfather Hyperlipidemia Hypertension Stroke Social History Smoking and tobacco/nicotine status: current every day tobacco/nicotine user cigarettes Packs smoked per day: 1 [ Other cigarette details: since 12] Quit status (tobacco/nicotine): not considering quitting Second hand smoke exposure: No Alcohol intake: former Year of sobriety/quit date alcohol: 2021 Former alcohol use details: Sober since February 2022 Substance/Drug Use: former Date of last use: 2021 Adopted: No Caregiver/support person: No Lives independently: Yes Housing: House Number of children: 3 Number of grandchildren: 5 Highest education level completed: 9th Grade Current occupational status: employed Current occupational exposures/hazards: No Pets and animals: Yes Pets & animals: dog(s) Leisure activites: other Leisure activities details: play on phone and with dog Do you think of yourself as: Straight/Heterosexual Current gender identity: Female Marleny/Caodaism: None Special marleny needs: No Agree to transfusion: Yes Female Reproductive History: Para: 3 Spontaneous abortions: No Physical Exam 2 Const: COMMON NORMALS: no acute distress, patient oriented x3, healthy appearing, alert and well nourished HENMT: COMMON NORMALS: normocephalic HEAD & SCALP: normocephalic Eye: COMMON NORMALS: EOMs intact bilaterally Neck/C-Spine: COMMON NORMALS: full ROM and supple Resp: COMMON NORMALS: normal respiratory effort, No retractions and clear to auscultation bilaterally AUSCULTATION: clear to auscultation bilaterally Cardio: COMMON NORMALS: regular rate, regular rhythm, No gallops present (Cardio) and No murmurs present (Cardio) RATE: regular rate RHYTHM: r egular rhythm GI: COMMON NORMALS: Soft to palpation and non-tender PALPATION: Yes Soft to palpation Extremity: GENERAL: Yes normal exam except as noted Neuro: COMMON NORMALS: patient oriented x3 SENSORIUM/ORIENTATION: Yes alert Skin: COMMON NORMALS: no rashes or lesions noted GENERAL SKIN EXAM: no rashes or lesions noted Course 2 Vital Signs: Vital signs: Vital Signs Temperature 98.2 F 12/05/23 11:52 Pulse Rate 111 H 12/05/23 11:52 Respiratory Rate 20 H 12/05/23 11:52 Blood Pressure 101/62 12/05/23 11:52 Pulse Oximetry 98 12/05/23 11:52 Oxygen Delivery Me thod Room Air 12/05/23 11:52 MDM - Extremity Injury (Upper) Medical Decision Making 43-year-old female presents to the emergency department for evaluation after accidental needlestick at work. 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 Current [facility] recommendations include laboratory evaluation, hepatitis B immunoglobulin, and follow-up with primary care physician. Counseled the patient on the risks and benefits of postexposure prophylaxis with antiretroviral drugs. She agreed that the risk of this medication outweighed the benefit at this time. Instructed patient to follow-up with her PCM for repeat HIV testing for at least 6 months. Patient discharged home in good condition. Lab Data 12/05/23 13:41 12/05/23 13:41 Laboratory Results WBC 11.06 10^3/uL (3.29-11.43) 12/05/23 13:41 RBC 3.70 10^6/uL (3.85-5.65) L 12/05/23 13:41 Hgb 12.10 g/dL (11.27-16.99) 12/05/23 13:41 Hct 37.7 % (36-47) 12/05/23 13:41 MCV 101.9 fl (85-98) H 12/05/23 13:41 MCH 32.7 pg (27-33) 12/05/23 13:41 MCHC 32.1 g/dL (30-55) 12/05/23 13:41 RDW 12.1 % (12.1-15.1) 12/05/23 13:41 Plt Count 335 10^3/cmm (157-399) 12/05/23 13:41 MPV 9.3 fL (7.4-10.4) 12/05/23 13:41 Neut % (Auto) 69.8 % 12/05/23 13:41 Lymph % (Auto) 24.0 % 12/05/23 13:41 [place] % (Auto) 4.7 % 12/05/23 13:41 Eos % (Auto) 0.7 % 12/05/23 13:41 Baso % (Auto) 0.5 % 12/05/23 13:41 Neut # (Auto) 7.72 10^3/uL (1.8-7.7) H 12/05/23 13:41 Lymph # (Auto) 2.7 10^3/uL (0.8-4.8) 12/05/23 13:41 [place] # (Auto) 0.5 10^3/uL (0.2-0.9) 12/05/23 13:41 Eos # (Auto) 0.1 10^3/uL (0.0-0.8) 12/05/23 13:41 Baso # (Auto) 0.1 10^3/uL (0.0-0.1) 12/05/23 13:41 Nucleated RBC % (auto) 0 % 12/05/23 13:41 Nucleated RBCs # 0.0 /100WBC 12/05/23 13:41 Sodium 144 mmol/L (136-145) 12/05/23 13:41 Potassium 4.0 mmol/L (3.5-5.1) 12/05/23 13:41 Chloride 109 mmol/L (98-107) H 12/05/23 13:41 Carbon Dioxide 26 mmol/L (22-29) 12/05/23 13:41 Anion Gap 13.0 (5-19) 12/05/23 13:41 BUN 8 mg/dL (6-20) 12/05/23 13:41 Creatinine 0.7 mg/dL (0.5-0.9) 12/05/23 13:41 GFR Calculation 90.5 mL/min (90-130) 12/05/23 13:41 Glucose 102 mg/dL (65-115) 12/05/23 13:41 Calculated Osmolality 297 mOsm/kg (285-295) H 12/05/23 13:41 Calcium 8.8 mg/dL (8.5-10.5) 12/05/23 13:41 Total Bilirubin 0.2 mg/dL (0.15-1.2) 12/05/23 13:41 AST 12 U/L (0-32) 12/05/23 13:41 ALT 17 U/L (0-33) 12/05/23 13:41 Alkaline Phosphatase 65 U/L (35-105) 12/05/23 13:41 Total Protein 6.7 g/dL (6.6-8.7) 12/05/23 13:41 Albumin 4.0 g/dL (3.5-5.2) 12/05/23 13:41 Globulin 2.7 g/dL (1.3-4.6) 12/05/23 13:41 Hepatitis A IgM Ab Non-reactive (Nonreactive) 12/05/23 13:41 Hep Bs Antigen Non-reactive (Nonreactive) 12/05/23 13:41 Hep Bs Antibody < 3.5 (11.5-1000) L 12/05/23 13:41 Hep B Core Total Ab Non-reactive (Nonreactive) 12/05/23 13:41 Hepatitis C Antibody Non-reactive (Nonreactive) 12/05/23 13:41 HIV 1&2 Ab & HIV 1 Ag Non-reactive (Non-Reactiv) 12/05/23 13:41 HIV 1&2 Antibody Non-reactive (Non-Reactiv) 12/05/23 13:41 No radiology studies performed this visit Discharge Plan Discharge Patient Disposition: Home Clinical Impression: Needlestick injury accident, Exposure to blood Condition: Stable Prescriptions: No Action bupropion HCl 200 mg tablet sustained-release 12 hr 200 mg PO QAM Qty: 30 1RF metoprolol tartrate 25 mg tablet 12.5 mg PO BID Qty: 20 0RF simvastatin 20 mg tablet 20 mg PO QPM Ventolin HFA 90 mcg/actuation HFA aerosol inhaler 2 puff INHALATION Q4H PRN (Reason: Wheezing) risperidone 2 mg tablet 2 mg PO BEDTIME escitalopram oxalate 20 mg tablet 20 mg PO QAM Discharge Orders: Discharge ED (Routine); Ordered 12/05/23 Ordered By: Jadiel Law Referrals: Rachel Canales FNP [Primary Care Provider] - Discharge Diet: Usual diet Discharge Activity: Resume usual activity Patient Instructions: Blood/Body Fluid Exposure - Occupational, Needle Stick Injuries (ED), Opioid Safety, Pain Management Activity Restrictions/Additional Instructions: Follow-up with primary care physician for further screening for HIV and hepatitis. Coding Level of Care Code ED Data Integr[employer] Consultant for Phil Courtney
[2023-12-05 13:46] LABS: Basophils # 0.1 10^3/uL (0.0-0.1); Basophils % 0.5 %; Eosinophils # 0.1 10^3/uL (0.0-0.8); Eosinophils % 0.7 %; Hematocrit 37.7 % (36-47); Lymphocytes # 2.7 10^3/uL (0.8-4.8); Mean Corpuscular HGB Conc 32.1 g/dL (30-55); Mean Corpuscular Hemoglobin 32.7 pg (27-33); Mean Corpuscular Volume 101.9 fl (85-98); Mean Platelet Volume 9.3 fL (7.4-10.4); Monocytes # 0.5 10^3/uL (0.2-0.9); Monocytes % 4.7 %; Neutrophils # 7.72 10^3/uL (1.8-7.7); Neutrophils % 69.8 %; Nucleated Red Blood Cells % 0 %; Platelet Count 335 10^3/cmm (157-399); Red Cell Distribution Width 12.1 % (12.1-15.1); White Blood Count 11.06 10^3/uL (3.29-11.43)
[2023-12-05 14:11] LABS: Alanine Aminotransferase 17 U/L (0-33); Alkaline Phosphatase 65 U/L (35-105); Aspartate Amino Transferase 12 U/L (0-32); Blood Urea Nitrogen 8 mg/dL (6-20); Calcium 8.8 mg/dL (8.5-10.5); Carbon Dioxide 26 mmol/L (22-29); Chloride 109 mmol/L (98-107); Globulin 2.7 g/dL (1.3-4.6); Glomerular Filtration Rate 90.5 mL/min (90-130); Glucose 102 mg/dL (65-115); Osmolality Calculated 297 mOsm/kg (285-295); Sodium 144 mmol/L (136-145); Total Bilirubin 0.2 mg/dL (0.15-1.2); Total Protein 6.7 g/dL (6.6-8.7)
[2023-12-05 14:27] LABS: Hepatitis A Antibody IgM Non-Reactive (Nonreactive); Hepatitis B Core AB, Total Non-Reactive (Nonreactive); Hepatitis B Surface AB < 3.5 (11.5-1000); Hepatitis B Surface Antigen Non-Reactive (Nonreactive); Hepatitis C Virus Antibody Non-Reactive (Nonreactive)
[2023-12-05 14:54] LABS: HIV 1 & 2 Antibody Non-Reactive (Non-Reactiv); HIV 1 & 2 Antigen Non-Reactive (Non-Reactiv)
--- NOTE | 2023-12-05 15:55 | PC.NURSE ---
PT UPDATED ON STATUS OF HEPATITIS B IMMUNOGLOBIN BEING OUT OF STOCK IN OUR PHARMACY. PT UPDATED ON SOMEONE GOING TO GET THE IMMUNOGLOBIN FROM ANOTHER FACILITY. PT GIVEN SANDWICH, JELLO, APPLESAUCE, AND A COKE TO EAT WHILE SHE WAITS. PT APPEARS UPSET AND STATES I NEED TO GET OUT OF HERE OR I AM GOING TO GO CRAZY. PT REASSURED THAT WE HAVE NOT FORGOTTEN ABOUT HER.
--- NOTE | 2023-12-05 18:05 | PC.NURSE ---
UPON ENTERING THE ROOM, PT VISIBLY UPSET AND STATES I NEED TO LEAVE. PT UPDATED ON IMMUNOGLOBIN BEING IN THE BUILDING AND THE WAIT IS NOW ON PHARMACY. PT APPEARS CALMER AFTER EDUCATION.
[2023-12-05 18:07] VITALS: BP 129/77; PULSE 98; RESP 16; O2SAT 97
--- NOTE | 2023-12-05 18:19 | PC.NURSE ---
PHARMACY NOTIFIED THIS NURSE THAT THE DOSE BROUGHT FROM [facility] WAS THE INCORRECT DOSE FOR THE PATIENT. LEAF SIZE PICKER NOTIFIED. PHYSICIAN NOTIFIED.
--- NOTE | 2023-12-05 18:20 | PC.NURSE ---
PER VERBAL ORDERS FROM DR STANLEY, PATIENT IS BEING SENT HOME DUE TO NEEDED DOSE OF IMMUNOGLOBIN NOT BEING IN PHARMACY. CORRECT DOSE WILL BE IN PHARMACY BY 0700 TOMORROW MORNING, 12/06/2023. POTATO CHIP SACKING MACHINE OPERATOR, SIMONE, STATES SHE WILL BE CALLING THE PATIENT IN THE MORNING TO COME AND RECIEVE THE CORRECT DOSE OF IMMUNOGLOBIN.
== END 2023-12-05 18:33 | disposition home or self-care (01) ==
PROVIDERS: Emergency Provider General Practice; PCP Nurse Practitioner Family
DX: Z77.21 Contact with and (suspected) exposure to potentially hazardous body fluids (principal); W46.1XXA Contact with contaminated hypodermic needle, initial encounter; Y92.59 Other trade areas as the place of occurrence of the external cause; Y99.0 Civilian activity done for income or pay; Y93.E9 Activity, other interior property and clothing maintenance
CPT/HCPCS: 36415; 80053; 85025; 86705; 86706; 86709; 86803; 87340; 87806; 99283

== ENCOUNTER 2023-12-06 08:11 | Emergency (ER) | payer OTHER, SELFPAY ==
[2023-02-10 16:41] VITALS: BP 129/73; BMI 28.6
[2023-12-06 08:26] VITALS: BP 132/72; PULSE 96; TEMP 36.7; O2SAT 99; BMI 26.6
[2023-12-06] MEDS: HEPATITIS B IMMUNE GLOBULIN 220 UNIT/ML 990 UNIT IM (08:32)
--- NOTE | 2023-12-06 08:49 | W.ED.RECABL ---
HPI - Recheck/Abnormal Lab/Rx General: Chief Complaint: Recheck/Abnormal Lab/Rx Stated Complaint: needs a shot Time Seen by Provider: 12/06/23 08:16 Source: patient Mode of arrival: ambulatory Limitations: no limitations History of Present Illness: 43-year-old female seen here yesterday after an accidental needlestick injury physician yesterday at ordered hepatitis immunoglobin were not able to get it yesterday they have not here today and she was called back to come to get the immunization she has no other complaints at this time Review of Systems Const: Denies: fever(s) or chills ENMT: Denies: throat pain or dental pain Card: Denies: chest pain Resp: Denies: dyspnea GI: Denies: abdominal pain, nausea, vomiting or diarrhea Musc: Denies: neck pain or back pain Neuro: Denies: headache(s) PFSH ED PFSH: Medical History Dyslipidemia Alcohol use disorder, severe, in early remission, dependence Methamphetamine use disorder, moderate, in early remission Psychiatric care Bipolar 1 disorder, depressed, severe Intentional self-harm Drinking binge Adjustment disorder Hypertension Anxiety Nicotine dependence, cigarettes, uncomplicated Generalized anxiety disorder Obsessive-compulsive personality disorder Chronic schizophrenia Bipolar disorder, in partial remission, most recent episode depressed Nasal obstruction Nasal turbinate hypertrophy Deviated septum Surgical History History of appendectomy History of cholecystectomy Hx laparoscopic cholecystectomy Hx of appendectomy Family History Grandmother CAD (coronary artery disease) Diabetes Hyperlipidemia Hypertension Father CAD (coronary artery disease) Cancer Hyperlipidemia Hypertension Psychiatric illness Grandfather Hyperlipidemia Hypertension Stroke Social History Smoking and tobacco/nicotine status: current every day tobacco/nicotine user cigarettes Packs smoked per day: 1 [ Other cigarette details: since ] Quit status (tobacco/nicotine): not considering quitting Second hand smoke exposure: No Alcohol intake: former Year of sobriety/quit date alcohol: 2021 Former alcohol use details: Sober since February 2022 Substance/Drug Use: former Date of last use: 2021 Adopted: No Caregiver/support person: No Lives independently: Yes Housing: House Number of children: 3 Number of grandchildren: 5 Highest education level completed: 9th Grade Current occupational status: employed Current occupational exposures/hazards: No Pets and animals: Yes Pets & animals: dog(s) Leisure activites: other Leisure activities details: play on phone and with dog Do you think of yourself as: Straight/Heterosexual Current gender identity: Female Marleny/Mosque: None Special marleny needs: No Agree to transfusion: Yes Female Reproductive History: Para: 3 Spontaneous abortions: No Physical Exam Const: COMMON NORMALS: no acute distress, patient oriented x3 and healthy appearing HENMT: COMMON NORMALS: normocephalic and atraumatic HEAD & SCALP: normocephalic and atraumatic Neck/C-Spine: COMMON NORMALS: full ROM Chest: COMMONS NORMALS: normal inspection of the chest Resp: COMMON NORMALS: normal respiratory effort GI: COMMON NORMALS: Normal to inspection, nondistended, normoactive bowel sounds present Extremity: COMMON NORMALS: normal to inspection Neuro: COMMON NORMALS: patient oriented x3, moves all extremities and no focal motor deficits Skin: COMMON NORMALS: no rashes or lesions noted and no wounds GENERAL SKIN EXAM: no rashes or lesions noted Course Vital Signs: Vital signs: Vital Signs Temperature 98.1 F 12/06/23 08:26 Pulse Rate 96 12/06/23 08:26 Blood Pressure 132/72 12/06/23 08:26 Pulse Oximetry 99 12/06/23 08:26 Oxygen Delivery Me thod Room Air 12/06/23 08:26 MDM - Recheck/Abnormal Lab/Rx Medical Decision Making Patient presents here for needlestick injury did give her the hepatitis immunoglobin she is stable for discharge follow-up with her PCP return if worsening. Medical Records I reviewed the patient's medical records. No radiology studies performed this visit Discharge Plan Discharge Patient Disposition: Home Clinical Impression: Needlestick injury accident Condition: Stable Prescriptions: No Action bupropion HCl 200 mg tablet sustained-release 12 hr 200 mg PO QAM Qty: 30 1RF metoprolol tartrate 25 mg tablet 12.5 mg PO BID Qty: 20 0RF simvastatin 20 mg tablet 20 mg PO QPM albuterol sulfate [Ventolin HFA] 90 mcg/actuation HFA aerosol inhaler 2 puff INHALATION Q4H PRN (Reason: Wheezing) risperidone 2 mg tablet 2 mg PO BEDTIME PRN (Reason: Sleep) escitalopram oxalate 20 mg tablet 20 mg PO QAM Discharge Orders: Discharge ED (Routine); Ordered 12/06/23 Ordered By: Bernadette Hargrove Referrals: Rachel Canales FNP [Primary Care Provider] - Discharge Diet: Advance as tolerated Discharge Activity: Resume usual activity Patient Instructions: Needle Stick Injuries (ED) Coding Level of Care Code ED [employer] for Phil Courtney
== END 2023-12-06 09:02 | disposition home or self-care (01) ==
PROVIDERS: Emergency Provider Emergency Medicine; PCP Nurse Practitioner Family
DX: Z77.21 Contact with and (suspected) exposure to potentially hazardous body fluids (principal); W46.1XXA Contact with contaminated hypodermic needle, initial encounter; Y99.0 Civilian activity done for income or pay; E78.5 Hyperlipidemia, unspecified; I10 Essential (primary) hypertension; F17.210 Nicotine dependence, cigarettes, uncomplicated
CPT/HCPCS: 90371; 96372; 99284

== ENCOUNTER 2024-03-02 17:02 | Outpatient (CLI) | payer MEDICAID, SELFPAY ==
[2023-12-08 11:02] VITALS: BP 129/73; BMI 28.6
--- NOTE | 2024-03-02 17:20 | XR_ITS ---
WS: [id number] Exam: XR sacrum coccyx min 2V [id number] Date/Time of Exam: 03/02/2024 5:22 PM Reason For Exam: COCCYX PAIN No fracture or dislocation. Soft tissues are unremarkable. Mild DJD of the SI joints. No bone destruc tion. XR/XR sacrum coccyx min 2V [id number] IMPRESSION: 1. No fracture or other significant finding.
== END 2024-03-02 17:03 | disposition home or self-care (01) ==
LOC: RAD 17:04
PROVIDERS: PCP Nurse Practitioner Family; Visit Provider Nurse Practitioner Family
DX: M53.3 Sacrococcygeal disorders, not elsewhere classified (principal)
CPT/HCPCS: 72220

== ENCOUNTER 2024-03-20 10:41 | Emergency (ER) | payer MEDICAID, SELFPAY ==
[2023-12-08 11:02] VITALS: BP 129/73; BMI 28.6
[2024-03-20 11:02] VITALS: BP 148/83; PULSE 98; TEMP 37.3; O2SAT 96; BMI 28.1
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
[2024-03-20 13:17] VITALS: BP 141/83; PULSE 100; O2SAT 96
== END 2024-03-20 13:18 | disposition home or self-care (01) ==
PROVIDERS: Emergency Provider Emergency Medicine; PCP Nurse Practitioner Family
DX: R07.89 Other chest pain (principal); I10 Essential (primary) hypertension; E78.5 Hyperlipidemia, unspecified; F17.210 Nicotine dependence, cigarettes, uncomplicated; Z79.899 Other long term (current) drug therapy
CPT/HCPCS: 71101; 99283

== ENCOUNTER 2024-07-09 15:17 | Emergency (ER) | payer MEDICAID, SELFPAY ==
[2023-12-08 11:02] VITALS: BP 129/73; BMI 28.6
[2024-07-09] VITALS (7 sets, daily range): BP systolic 112–146; BP diastolic 63–84; PULSE 91–122; RESP 20–26; TEMP 37.1; O2SAT 92–100; BMI 28.5
--- NOTE | 2024-07-09 15:39 | CTR_ITS ---
PROCEDURE INFORMATION: Exam: CT Abdomen And Pelvis With Contrast Exam date and time: 07/09/2024 5:14 PM Age: 44 years old Clinical indication: Abdominal pain; Additional info: Abdominal general TECHNIQUE: Imaging protocol: Computed tomography of the abdomen and pelvis with contrast. Radiation optimization: All CT scans at this facility use at least one of these dose optimization techniques: automated exposure control; mA and/or kV adjustment per patient size (includes targeted exams where dose is matched to clinical indication); or iterative reconstruction. Contrast material: OMNI 350; Contrast volume: 100 ml; Contrast route: INTRAVENOUS (IV); COMPARISON: CT kidney stone [id number] 10/21/2020 11:39 PM RADIATION DOSE METRICS: Total DLP (mGy-cm): 741.23 FINDINGS: Liver: See Gallbladder and biliary ducts finding. Gallbladder and biliary ducts: The gallbladder has been removed. Prominence of the intrahepatic and extrahepatic biliary ducts. This can be seen after cholecystectomy. No radiopaque retained stones are seen. Pancreas: Normal. No ductal dilation. Spleen: Normal. No splenomegaly. Adrenal glands: Normal. No mass. Kidneys and ureters: Subcentimeter right renal cyst has benign features. Follow-up is not necessary. Stomach and bowel: There are air-fluid levels in the distal colon suggesting mild nonspecific colitis versus other diarrheal illness. Appendix: There has been an appendectomy. Intraperitoneal space: There is a physiologic amount of free fluid in the pelvis. Vasculature: Unremarkable. No abdominal aortic aneurysm. Lymph nodes: Unremarkable. No enlarged lymph nodes. Urinary bladder: Unremarkable as visualized. Reproductive: Unremarkable as visualized. Bones/joints: Unremarkable. No acute fracture. Soft tissues: Unremarkable. CT/CT abdomen pelvis w con* [id number] IMPRESSION: There are air-fluid levels in the distal colon suggesting mild nonspecific colitis versus other diarrheal illness. COMMENTS: Consistent with the [employer]'s Incidental Findings Committee white paper (J Am Edd Radiol 2018): Any incidental renal lesion less than 1 cm or classified as too small to characterize, or any incidental cystic renal lesion characterized as simple-appearing, is likely benign. No follow-up imaging is recommended for these lesions per consensus recommendations based on imaging criteria.
[2024-07-09] MEDS: sodium chloride 0.9% 1,000 ML 999 ML IV (16:03)
[2024-07-09] MEDS: morphine 4 mg/mL SDV 1 mL IVP (16:06)
[2024-07-09] MEDS: ondansetron 2 mg/ML SDV 2 mL 4 MG IVP (16:06)
[2024-07-09 16:21] LABS: Basophils % 0.3 %; Eosinophils % 0.2 %; Hematocrit 35.6 % (36-47); Lymphocytes # 2.1 10^3/uL (0.8-4.8); Lymphocytes % 15.9 %; Mean Corpuscular HGB Conc 32.6 g/dL (30-55); Mean Corpuscular Hemoglobin 32.2 pg (27-33); Mean Corpuscular Volume 98.9 fl (85-98); Mean Platelet Volume 9.6 fL (7.4-10.4); Monocytes # 0.7 10^3/uL (0.2-0.9); Monocytes % 5.7 %; Neutrophils # 10.12 10^3/uL (1.8-7.7); Neutrophils % 77.5 %; Nucleated Red Blood Cells % 0 %; Platelet Count 328 10^3/cmm (157-399); White Blood Count 13.05 10^3/uL (3.29-11.43)
[2024-07-09 16:40] LABS: Lactic Sepsis W/Reflex 1.2 mmol/L (0.5-2.2)
[2024-07-09 16:41] LABS: Alanine Aminotransferase 61 U/L (0-33); Albumin Level 3.6 g/dL (3.5-5.2); Alkaline Phosphatase 76 U/L (35-105); Aspartate Amino Transferase 31 U/L (0-32); Blood Urea Nitrogen 6 mg/dL (6-20); Calcium 8.4 mg/dL (8.5-10.5); Carbon Dioxide 23 mmol/L (22-29); Chloride 102 mmol/L (98-107); Creatinine Clr Calc Pharmacy 194.1503; Globulin 2.6 g/dL (1.3-4.6); Glomerular Filtration Rate 171.8 mL/min (90-130); Glucose 113 mg/dL (65-115); Lipase 20 U/L (13-60); Osmolality Calculated 280 mOsm/kg (285-295); Sodium 136 mmol/L (136-145); Total Bilirubin 0.7 mg/dL (0.15-1.2); Total Protein 6.2 g/dL (6.6-8.7)
--- NOTE | 2024-07-09 17:06 | ED_ITS ---
HPI - Abdominal Pain 2 General: Chief Complaint: Abdominal Pain Stated Complaint: severe abd pain Time Seen by Provider: 07/09/24 15:39 History of Present Illness: Mary Saucedo is a 44-year-old female that presents to the emergency department with onset of abdominal pain that started last night. Patient reports pain is sharp in nature. She has nausea and vomiting but no diarrhea. Last BM yesterday. Last void today at noon. Patient denies fevers but does report chills. Denies burning with urination Patient has a history that includes hypertension, hyperlipidemia, methamphetamine use. Last methamphetamine 2 days ago. Last menstrual cycle 2020 Associated Symptoms: Reports nausea; Denies bloating, chills, constipation, GI cramping, diarrhea, dysuria, fever(s), hematochezia, hematuria and vomiting Related Data Home Medications Medication Instructions Recorded Confirmed albuterol sulfate 90 mcg/actuation 2 puff inhalation Q4H PRN Wheezing 12/05/23 03/14/24 aerosol inhaler (Ventolin HFA) simvastatin 20 mg tablet 20 mg PO QPM 12/05/23 03/14/24 Previous Rx's Medication Instructions Recorded metoprolol tartrate 25 mg tablet 12.5 mg (1/2 x 25 mg) PO BID #20 03/11/23 tabs triamcinolone acetonide 0.1 % 1 applic topical BID #15 grams 02/24/24 topical cream bupropion HCl 200 mg tablet,12 hr 200 mg PO QAM #30 tabs 03/14/24 sustained-release naproxen 500 mg tablet (Naprosyn) 500 mg PO BID PRN pain #20 tabs 03/20/24 escitalopram oxalate 20 mg tablet 20 mg PO QAM #30 tabs 05/12/24 risperidone 2 mg tablet 2 mg PO .q hs #30 tabs 05/12/24 ciprofloxacin HCl 500 mg tablet 500 mg PO BID 7 days #14 tabs 07/09/24 metronidazole 500 mg tablet 500 mg PO BID 7 days #14 tabs 07/09/24 ondansetron 4 mg disintegrating 4 mg PO Q8H 5 days #15 tabs 07/09/24 tablet Allergies Allergy/AdvReac Type Severity Reaction Status Date / Time Penicillins Allergy Unknown Unknown Verified 03/20/24 11:09 aspirin Allergy ALGY-Hives Verified 03/20/24 11:09 bee venom protein (honey bee) Allergy Kory Verified 03/20/24 11:09 Lip/Tongue/Throat Review of Systems 2 General: Reports: 10 or more systems reviewed and unremarkable except in HPI and below Const: Denies: fever(s), chills, change in appetite, change in weight, fatigue or malaise Card: Denies: chest pain, palpitations, irregular heart rhythm, edema, dyspnea on exertion, orthopnea or leg pain with exertion Resp: Denies: dyspnea, productive cough, non-productive cough, wheezing, stridor or chest congestion GI: Reports: abdominal pain and nausea; Denies: vomiting, dysphagia, diarrhea, constipation, bloating, GI cramping or hematochezia : Denies: flank pain, difficulty voiding, dysuria, urinary frequency, urinary urgency, urinary hesitancy, oliguria or hematuria Musc: Denies: neck pain, back pain, extremity pain, joint pain, joint swelling, joint redness, joint warmth or muscle weakness Neuro: Denies: headache(s), numbness in extremities, weakness in extremities, sensory changes, lack of coordination, difficulty walking, frequent falls, dizziness, confusion, Slurred speech present, difficulty communicating thoughts, seizure-like activity or involuntary movements PFSH ED 2 PFSH: Medical History Dyslipidemia Alcohol use disorder, severe, in early remission, dependence Methamphetamine use disorder, moderate, in early remission Psychiatric care Bipolar 1 disorder, depressed, severe Intentional self-harm Drinking binge Adjustment disorder Hypertension Anxiety Nicotine dependence, cigarettes, uncomplicated Generalized anxiety disorder Obsessive-compulsive personality disorder Chronic schizophrenia Bipolar disorder, in partial remission, most recent episode depressed Nasal obstruction Nasal turbinate hypertrophy Deviated septum Surgical History History of appendectomy History of cholecystectomy Hx laparoscopic cholecystectomy Hx of appendectomy Family History Grandmother CAD (coronary artery disease) Diabetes Hyperlipidemia Hypertension Father CAD (coronary artery disease) Cancer Hyperlipidemia Hypertension Psychiatric illness Grandfather Hyperlipidemia Hypertension Stroke Social History Smoking and tobacco/nicotine status: current every day tobacco/nicotine user cigarettes Packs smoked per day: 1 [ Other cigarette details: since ] Quit status (tobacco/nicotine): not considering quitting Second hand smoke exposure: No Alcohol intake: former Year of sobriety/quit date alcohol: 2021 Former alcohol use details: Sober since February 2022 Substance/Drug Use: former Date of last use: 2021 Adopted: No Caregiver/support person: No Lives independently: Yes Housing: House Number of children: 3 Number of grandchildren: 5 Highest education level completed: 9th Grade Current occupational status: employed Current occupational exposures/hazards: No Pets and animals: Yes Pets & animals: dog(s) Leisure activites: other Leisure activities details: play on phone and with dog Do you think of yourself as: Straight/Heterosexual Current gender identity: Female Marleny/Scientologist: None Special marleny needs: No Agree to transfusion: Yes Female Reproductive History: Para: 3 Spontaneous abortions: No Physical Exam 2 Const: COMMON NORMALS: no acute distress, patient oriented x3 and alert G ENERAL APPEARANCE: cooperative ORIENTATION/CONSCIOUSNESS: Yes awake, Yes oriented to person, Yes oriented to place and Yes oriented to time Neck/C-Spine: COMMON NORMALS: full ROM GENERAL: Yes normal visual inspection Chest: COMMONS NORMALS: normal inspection of the chest Breast/axilla inspection: Yes no chest deformity, asymmetry, normal contours, no nodules, masses, tenderness Resp: COMMON NORMALS: normal respiratory effort, No retractions, No use of accessory muscles and clear to auscultation bilaterally EFFORT & INSPECTION: Yes able to speak in complete sentences and Yes symmetric chest movement A USCULTATION: clear to auscultation bilaterally Cardio: COMMON NORMALS: regular rate, regular rhythm and Peripheral pulses 2+ throughout RATE: regular rate RHYTHM: regular rhythm PERIPHERAL PULSES: Peripheral pulses 2+ throughout GI: COMMON NORMALS: Normal to inspection, nondistended, normoactive bowel sounds present, Soft to palpation, non-tender and No hepatosplenomegaly present INSPECTION: Yes normal to inspection AUSCULTATION: Yes normoactive bowel sounds PALPATION: Yes Soft to palpation and Yes No hepatosplenomegaly present RECTAL EXAM: deferred Extremity: COMMON NORMALS: normal to inspection GENERAL: Yes normal exam except as noted Neuro: COMMON NORMALS: patient oriented x3 SENSORIUM/ORIENTATION: Yes alert, Yes oriented to person, Yes oriented to place and Yes oriented to time CRANIAL NERVES: Yes CN normal except as noted Psych: COMMON NORMALS: mental status grossly normal, Normal thought process present, cooperative, activity/motor behavior normal, denies homicidal ideation and denies suicidal ideation THOUGHT PROCESS: Normal thought process present Course 2 Vital Signs: Vital signs: Vital Signs Temperature 98.7 F 07/09/24 15:22 Pulse Rate 91 07/09/24 17:54 Respiratory Rate 22 H 07/09/24 17:54 Blood Pressure 126/83 07/09/24 17:54 Pulse Oximetry 100 07/09/24 17:54 Oxygen Delivery Me thod Room Air 07/09/24 17:54 MDM - Abdominal Pain Medical Decision Making Patient is a 44-year-old female that presents to the emergency department with abdominal discomfort, nausea vomiting. Onset of symptoms yesterday. Patient has a history of episodes similar to this and has had follow-up scheduled with gastroenterology but has failed to follow through. Patient underwent laboratory evaluation here in the emergency department as well as diagnostic evaluation. The laboratory evaluation reveals a mild leukocytosis of 13,000. No significant anemias. She also was hypokalemic and we treated that. No evidence of a urinary tract infection. He does have a positive urine drug screen for amphetamines. She states her last use was 2 days ago. Patient is going to be treated Cipro and Flagyl. Patient has had follow-up with GI in the past but has failed to follow through. She is going to follow-up with her primary care if symptoms persist be referred to GI specialist. Patient is agreeable and all questions answered Lab Data 07/09/24 15:58 07/09/24 15:58 Labs/Radiology: Radiology Impressions Abdomen/Pelvis CT 07/09/24 15:39 IMPRESSION: There are air-fluid levels in the distal colon suggesting mild nonspecific colitis versus other diarrheal illness. COMMENTS: Consistent with the [place] [employer]'s Incidental Findings Committee white paper (J Am Edd Radiol 2018): Any incidental renal lesion less than 1 cm or classified as too small to characterize, or any incidental cystic renal lesion characterized as simple-appearing, is likely benign. No follow-up imaging is recommended for these lesions per consensus recommendations based on imaging criteria. Laboratory Results WBC 13.05 10^3/uL (3.29-11.43) H 07/09/24 15:58 RBC 3.60 10^6/uL (3.85-5.65) L 07/09/24 15:58 Hgb 11.60 g/dL (11.27-16.99) 07/09/24 15:58 Hct 35.6 % (36-47) L 07/09/24 15:58 MCV 98.9 fl (85-98) H 07/09/24 15:58 MCH 32.2 pg (27-33) 07/09/24 15:58 MCHC 32.6 g/dL (30-55) 07/09/24 15:58 RDW 12.0 % (12.1-15.1) L 07/09/24 15:58 Plt Count 328 10^3/cmm (157-399) 07/09/24 15:58 MPV 9.6 fL (7.4-10.4) 07/09/24 15:58 Neut % (Auto) 77.5 % 07/09/24 15:58 Lymph % (Auto) 15.9 % 07/09/24 15:58 [place] % (Auto) 5.7 % 07/09/24 15:58 Eos % (Auto) 0.2 % 07/09/24 15:58 Baso % (Auto) 0.3 % 07/09/24 15:58 Neut # (Auto) 10.12 10^3/uL (1.8-7.7) H 07/09/24 15:58 Lymph # (Auto) 2.1 10^3/uL (0.8-4.8) 07/09/24 15:58 [place] # (Auto) 0.7 10^3/uL (0.2-0.9) 07/09/24 15:58 Eos # (Auto) 0.0 10^3/uL (0.0-0.8) 07/09/24 15:58 Baso # (Auto) 0.0 10^3/uL (0.0-0.1) 07/09/24 15:58 Nucleated RBC % (auto) 0 % 07/09/24 15:58 Nucleated RBCs # 0.0 /100WBC 07/09/24 15:58 Sodium 136 mmol/L (136-145) 07/09/24 15:58 Potassium 3.0 mmol/L (3.5-5.1) L 07/09/24 15:58 Chloride 102 mmol/L (98-107) 07/09/24 15:58 Carbon Dioxide 23 mmol/L (22-29) 07/09/24 15:58 Anion Gap 14.0 (5-19) 07/09/24 15:58 BUN 6 mg/dL (6-20) 07/09/24 15:58 Creatinine 0.4 mg/dL (0.5-0.9) L 07/09/24 15:58 GFR Calculation 171.8 mL/min (90-130) H 07/09/24 15:58 Glucose 113 mg/dL (65-115) 07/09/24 15:58 Calculated Osmolality 280 mOsm/kg (285-295) L 07/09/24 15:58 Lactic Acid 1.2 mmol/L (0.5-2.2) 07/09/24 15:58 Calcium 8.4 mg/dL (8.5-10.5) L 07/09/24 15:58 Total Bilirubin 0.7 mg/dL (0.15-1.2) 07/09/24 15:58 AST 31 U/L (0-32) 07/09/24 15:58 ALT 61 U/L (0-33) H 07/09/24 15:58 Alkaline Phosphatase 76 U/L (35-105) 07/09/24 15:58 Total Protein 6.2 g/dL (6.6-8.7) L 07/09/24 15:58 Albumin 3.6 g/dL (3.5-5.2) 07/09/24 15:58 Globulin 2.6 g/dL (1.3-4.6) 07/09/24 15:58 Lipase 20 U/L (13-60) 07/09/24 15:58 HCG, Qual Negative (Negative) 07/09/24 16:57 Urine Color Yellow (Yellow) 07/09/24 16:57 Urine Appearance Clear (CLEAR) 07/09/24 16:57 Urine pH 6.5 (5-7) 07/09/24 16:57 Ur Specific [place] 1.006 (1.005-1.030) 07/09/24 16:57 Urine Protein Negative (Negative) 07/09/24 16:57 Urine Glucose (UA) Negative (Normal) 07/09/24 16:57 Urine Ketones Negative (Negative) 07/09/24 16:57 Urine Blood 1+ (Negative) A 07/09/24 16:57 Urine Nitrate Negative (Negative) 07/09/24 16:57 Urine Bilirubin Negative (Negative) 07/09/24 16:57 Urine Urobilinogen 1.0 mg/dL (Negative) 07/09/24 16:57 Ur Leukocyte Esterase Trace (Negative) A 07/09/24 16:57 Urine RBC 6-10 /hpf (0-2) 07/09/24 16:57 Urine WBC 6-10 /hpf (0-5) 07/09/24 16:57 Ur Squamous Epith Cells 0-5 /hpf (0-5) 07/09/24 16:57 Amorphous Sediment Not Reportable 07/09/24 16:57 Urine Bacteria None seen /hpf (NONE) 07/09/24 16:57 Hyaline Casts 0-4 /lpf H 07/09/24 16:57 Urine Opiates Screen Positive ng/mL (Negative) H 07/09/24 16:57 Ur Barbiturates Screen Negative ng/mL (Negative) 07/09/24 16:57 Ur Phencyclidine Scrn Negative ng/mL (Negative) 07/09/24 16:57 Ur Amphetamines Screen Positive ng/mL (Negative) H 07/09/24 16:57 U Benzodiazepines Scrn Negative ng/mL (Negative) 07/09/24 16:57 Urine Cocaine Screen Negative ng/mL (Negative) 07/09/24 16:57 U Marijuana (THC) Screen Negative ng/mL (Negative) 07/09/24 16:57 All radiology interpretation(s) finalized by discharge Discharge Plan Discharge Patient Disposition: Home Clinical Impression: Abdominal pain, Methamphetamine use, Colitis, Acute hypokalemia Condition: Stable Prescriptions: New ciprofloxacin HCl 500 mg tablet 500 mg PO BID 7 Days Qty: 14 0RF metronidazole 500 mg tablet 500 mg PO BID 7 Days Qty: 14 0RF ondansetron 4 mg tablet,disintegrating 4 mg PO Q8H 5 Days Qty: 15 0RF No Action triamcinolone acetonide 0.1 % cream 1 applic topical BID Qty: 15 0RF bupropion HCl 200 mg tablet sustained-release 12 hr 200 mg PO QAM Qty: 30 1RF Rx Instructions: Take one tablet by mouth every morning; stop 300 mg dose risperidone 2 mg tablet 2 mg PO .q hs Qty: 30 0RF Rx Instructions: Take one tablet by mouth every day at bedtime escitalopram oxalate 20 mg tablet 20 mg PO QAM Qty: 30 0RF Rx Instructions: Take one tablet by mouth every morning metoprolol tartrate 25 mg tablet 12.5 mg PO BID Qty: 20 0RF simvastatin 20 mg tablet 20 mg PO QPM albuterol sulfate [Ventolin HFA] 90 mcg/actuation HFA aerosol inhaler 2 puff INHALATION Q4H PRN (Reason: Wheezing) Naprosyn 500 mg tablet 500 mg PO BID PRN (Reason: pain) Qty: 20 0RF Discharge Orders: Discharge ED (Routine); Ordered 07/09/24 Ordered By: Matilde Alvarenga Referrals: Rachel Canales FNP [Primary Care Provider] - Discharge Diet: Advance as tolerated Discharge Activity: Resume usual activity Patient Instructions: Abdominal Pain (ED), Pain Management, Colitis (ED), Hypokalemia (ED) Activity Restrictions/Additional Instructions: Take your medications as prescribed Please return to the emergency department for new concerning or worsening symptoms Coding Level of Care Code ED Glass Cut Off Supervisor for Phil Courtney
[2024-07-09 17:07] LABS: Bilirubin Urine Negative (Negative); Blood Urine 1+ (Negative); Glucose Urine UA Negative (Normal); Ketones Urine Negative (Negative); Leukocyte Esterase Urine Trace (Negative); Nitrate Urine Negative (Negative); Protein Urine Negative (Negative); Specific Gravity, Urine 1.006 (1.005-1.030); Urine Appearance Clear (CLEAR); Urine Color Yellow (Yellow); pH Urine 6.5 (5-7)
[2024-07-09 17:08] LABS: HCG Qualitative Urine. Negative (Negative)
[2024-07-09] MEDS: potassium chloride ER 20 mEq Tablet PO (17:09)
[2024-07-09 17:12] LABS: Add Urine Microscopic? YES; Bacteria Urine None Seen /hpf; Hyaline Casts Urine 0-4 /lpf; Squamous Epithelial Cell Urine 0-5 /hpf (0-5)
[2024-07-09 17:16] LABS: Amphetamines Screen Urine Positive (Negative); Barbiturates Screen Urine Negative (Negative); Benzodiazepines Screen Urine Negative (Negative); Cocaine Screen Urine Negative (Negative); Opiate Screen Urine Positive (Negative); PCP Screen Urine Negative (Negative); THC Screen Urine Negative (Negative)
[2024-07-09] MEDS: iohexol 350 mg/mL 500 mL Btl (per mL) IV (17:17)
[2024-07-09] MEDS: ciprofloxacin 500 mg Tablet PO (19:01)
[2024-07-09] MEDS: metroNIDAZOLE 500 MG Tablet PO (19:02)
== END 2024-07-09 19:00 | disposition home or self-care (01) ==
PROVIDERS: Emergency Provider Nurse Practitioner; PCP Nurse Practitioner Family
DX: R10.9 Unspecified abdominal pain (principal); F15.90 Other stimulant use, unspecified, uncomplicated; K52.9 Noninfective gastroenteritis and colitis, unspecified; E87.6 Hypokalemia; F17.210 Nicotine dependence, cigarettes, uncomplicated; I10 Essential (primary) hypertension
CPT/HCPCS: 74177; 80053; 80306; 81001; 81025; 83605; 83690; 85025; 96361; 96374; 96375; 99285; J2270; J2405; J7030

== ENCOUNTER 2024-08-12 13:13 | Emergency (ER) | payer MEDICAID, SELFPAY ==
[2023-12-08 11:02] VITALS: BP 129/73; BMI 28.6
--- NOTE | 2024-08-12 13:17 | ECG_ITS ---
[facility] 2024[facility]12 Pat Name: Mary Saucedo Department: Room: Gender: Female Park Interpretive Ranger: : 1980 Requested By: Bernadette Hargrove Order Number: [id number] Ella MD: Stanislaw Miller M.D. Measurements Intervals [place] Rate: 106 P: 77 HI: 153 QRS: 87 QRSD: 86 T: 64 QT: 329 QTc: 438 Interpretive Statements SINUS TACHYCARDIA ABNORMAL RHYTHM ECG Compared to ECG 03/11/2023 10:02:15 Sinus rhythm no longer present Atrial abnormality no longer present Myocardial infarct finding no longer present Electronically Signed On 08-12-2024 16:56:29 MEDIA DIRECTOR by Stanislaw Miller M.D. [email or web address]
[2024-08-12 13:20] VITALS: BP 115/52; PULSE 110; RESP 20; TEMP 36.9; O2SAT 99; BMI 28.5
--- NOTE | 2024-08-12 13:25 | XR_ITS ---
WS: [id number] XR chest 1V portable [id number] REASON FOR EXAM: sob FINDINGS: The chest is unchanged compared to previous examination 03/20/2024. Minimal tortuosity of the thoracic aorta. Normal heart size. Calcified granulomatous disease in both hemithoraces. No acute pulmonary parenchymal or pleural abnormality. Mild levoscoliosis of the lower thoracic spine. XR/XR chest 1V portable [id number] IMPRESSION: Stable chest with no acute abnormality.
--- NOTE | 2024-08-12 15:03 | W.ED.SOB ---
HPI - SOB/Dyspnea General: Chief Complaint: Shortness of Breath/Dyspnea Stated Complaint: SOB Time Seen by Provider: 08/12/24 14:52 Source: patient Mode of arrival: ambulatory Limitations: no limitations History of Present Illness: HPI Narrative: 44-year-old female states she has had congestion and cough over the last 5 days she has had a history of bronchitis in the past does have an inhaler at home she states this morning she was dusting and got much more short of breath with wheezing states she is feeling improved now has had some mild dyspnea she denies any chest pain denies any fever. Associated symptoms: Deny abdominal pain, chest pain, fever(s), nausea or vomiting Related Data Home Medications Medication Instructions Recorded Confirmed albuterol sulfate 90 mcg/actuation 2 puff inhalation Q4H PRN Wheezing 12/05/23 07/27/24 aerosol inhaler (Ventolin HFA) simvastatin 20 mg tablet 20 mg PO QPM 12/05/23 07/27/24 Previous Rx's Medication Instructions Recorded metoprolol tartrate 25 mg tablet 12.5 mg (1/2 x 25 mg) PO BID #20 03/11/23 tabs triamcinolone acetonide 0.1 % 1 applic topical BID #15 grams 02/24/24 topical cream naproxen 500 mg tablet (Naprosyn) 500 mg PO BID PRN pain #20 tabs 03/20/24 bupropion HCl 150 mg 24 hr tablet, 150 mg PO QAM #30 tabs 07/18/24 extended release escitalopram oxalate 20 mg tablet 20 mg PO QAM #30 tabs 07/18/24 risperidone 1 mg tablet 1 mg PO .q hs #30 tabs 07/18/24 ondansetron 8 mg disintegrating 8 mg PO Q8H PRN nausea and 07/27/24 tablet vomiting #3 tabs pantoprazole 40 mg tablet,delayed 40 mg PO ONCE PRN abdominal pain 07/27/24 release (Protonix) 30 days #30 tabs Allergies Allergy/AdvReac Type Severity Reaction Status Date / Time Penicillins Allergy Unknown Unknown Verified 07/27/24 10:36 aspirin Allergy ALGY-Hives Verified 07/27/24 10:36 bee venom protein (honey bee) Allergy ALGY-Swell Verified 07/27/24 10:36 Lip/Tongue/Throat Review of Systems Const: Denies: fever(s), chills, body aches or change in appetite Eyes: Denies: eye discomfort ENMT: Denies: throat pain or dental pain Card: Denies: chest pain Resp: Reports: dyspnea and non-productive cough GI: Denies: abdominal pain, nausea, vomiting or diarrhea Musc: Denies: neck pain or back pain Skin/Breast: Denies: rash Neuro: Denies: headache(s) PFSH ED PFSH: Medical History Dyslipidemia Alcohol use disorder, severe, in early remission, dependence Methamphetamine use disorder, moderate, in early remission Psychiatric care Bipolar 1 disorder, depressed, severe Intentional self-harm Drinking binge Adjustment disorder Hypertension Anxiety Nicotine dependence, cigarettes, uncomplicated Generalized anxiety disorder Obsessive-compulsive personality disorder Chronic schizophrenia Bipolar disorder, in partial remission, most recent episode depressed Nasal obstruction Nasal turbinate hypertrophy Deviated septum Surgical History History of appendectomy History of cholecystectomy Hx laparoscopic cholecystectomy Hx of appendectomy Family History Grandmother CAD (coronary artery disease) Diabetes Hyperlipidemia Hypertension Father CAD (coronary artery disease) Cancer Hyperlipidemia Hypertension Psychiatric illness Grandfather Hyperlipidemia Hypertension Stroke Social History Smoking and tobacco/nicotine status: current every day tobacco/nicotine user cigarettes Packs smoked per day: 1 [ Other cigarette details: since ] Quit status (tobacco/nicotine): not considering quitting Second hand smoke exposure: No Alcohol intake: former Year of sobriety/quit date alcohol: 2021 Former alcohol use details: Sober since February 2022 Substance/Drug Use: former Date of last use: 2021 Adopted: No Caregiver/support person: No Lives independently: Yes Housing: House Number of children: 3 Number of grandchildren: 5 Highest education level completed: 9th Grade Current occupational status: employed Current occupational exposures/hazards: No Pets and animals: Yes Pets & animals: dog(s) Leisure activites: other Leisure activities details: play on phone and with dog Do you think of yourself as: Straight/Heterosexual Current gender identity: Female Marleny/Alevism: None Special marleny needs: No Agree to transfusion: Yes Female Reproductive History: Para: 3 Spontaneous abortions: No Physical Exam Const: COMMON NORMALS: no acute distress, patient oriented x3 and healthy appearing HENMT: COMMON NORMALS: normocephalic and atraumatic HEAD & SCALP: normocephalic and atraumatic Eye: COMMON NORMALS: conjunctivae normal CONJUNCTIVA: Yes conjunctivae normal Neck/C-Spine: COMMON NORMALS: full ROM and supple Chest: COMMONS NORMALS: normal inspection of the chest Resp: COMMON NORMALS: normal respiratory effort, No retractions and No use of accessory muscles OTHER: mild wheezing Cardio: COMMON NORMALS: regular rate, regular rhythm and No murmurs present (Cardio) RATE: regular rate RHYTHM: regular rhythm Extremity: COMMON NORMALS: normal to inspection and full ROM Neuro: COMMON NORMALS: patient oriented x3, moves all extremities and no focal motor deficits Psych: COMMON NORMALS: mental status grossly normal, Normal thought process present and cooperative THOUGHT PROCESS: Normal thought process present Skin: COMMON NORMALS: no rashes or lesions noted and no wounds GENERAL SKIN EXAM: no rashes or lesions noted Course Vital Signs: Vital signs: Vital Signs Temperature 98.4 F 08/12/24 13:20 Pulse Rate 105 H 08/12/24 15:58 Respiratory Rate 16 08/12/24 15:54 Blood Pressure 120/72 08/12/24 15:49 Pulse Oximetry 97 08/12/24 15:54 Oxygen Delivery Me thod Room Air 08/12/24 15:54 MDM - SOB/Dyspnea Medical Decision Making Patient presents here with dyspnea is likely an upper respiratory infection x-ray here shows no pneumonia COVID flu RSV are negative patient stable for discharge follow-up PCP return if worsening. Medical Records I reviewed the patient's medical records. Lab Data Labs/Radiology: Radiology Impressions Chest X-Ray 08/12/24 13:25 IMPRESSION: Stable chest with no acute abnormality. Laboratory Results Coronavirus (PCR) Negative (Negative) 08/12/24 15:38 Influenza A (PCR) Negative (Negative) 08/12/24 15:38 Influenza Type B (PCR) Negative (Negative) 08/12/24 15:38 RSV (PCR) Negative (Negative) 08/12/24 15:38 All radiology interpretation(s) finalized by discharge Discharge Plan Discharge Patient Disposition: Home Clinical Impression: Upper respiratory infection Condition: Stable Prescriptions: No Action triamcinolone acetonide 0.1 % cream 1 applic topical BID Qty: 15 0RF escitalopram oxalate 20 mg tablet 20 mg PO QAM Qty: 30 1RF Rx Instructions: For 1 week, take one-half tablet by mouth every morning, then increase to 1 tablet every morning bupropion HCl 150 mg tablet extended release 24 hr 150 mg PO QAM Qty: 30 1RF Rx Instructions: Take one tablet by mouth every morning; stop 200 mg dose risperidone 1 mg tablet 1 mg PO .q hs Qty: 30 1RF Rx Instructions: Take one tablet daily at bedtime pantoprazole [Protonix] 40 mg tablet,delayed release (DR/EC) 40 mg PO ONCE PRN (Reason: abdominal pain) 30 Days Qty: 30 1RF ondansetron 8 mg tablet,disintegrating 8 mg PO Q8H PRN (Reason: nausea and vomiting) Qty: 3 0RF metoprolol tartrate 25 mg tablet 12.5 mg PO BID Qty: 20 0RF simvastatin 20 mg tablet 20 mg PO QPM albuterol sulfate [Ventolin HFA] 90 mcg/actuation HFA aerosol inhaler 2 puff INHALATION Q4H PRN (Reason: Wheezing) Naprosyn 500 mg tablet 500 mg PO BID PRN (Reason: pain) Qty: 20 0RF Discharge Orders: Discharge ED (Routine); Ordered 08/12/24 Ordered By: Bernadette Hargrove Referrals: Rachel Canales HEATING WORKER [Primary Care Provider] - 4-7 days Discharge Diet: Advance as tolerated Discharge Activity: Resume usual activity Patient Instructions: Upper Respiratory Infection (ED) Coding Level of Care Code ED Claim Service Representative for Phil Courtney
[2024-08-12 15:23] VITALS: BP 122/89; PULSE 93; O2SAT 95
[2024-08-12] MEDS: dexamethasone 10 mg/mL INJ IM (15:42)
[2024-08-12 15:49] VITALS: BP 120/72; PULSE 88; O2SAT 97
[2024-08-12 15:54] VITALS: PULSE 95; RESP 16; O2SAT 97
[2024-08-12] MEDS: ipratropium-albuterol 3 mL Neb INHALATION (15:56)
[2024-08-12 15:58] VITALS: PULSE 105
[2024-08-12 16:24] LABS: Covid PCR NEGATIVE (Negative); Influenza A NEGATIVE (Negative); Influenza B NEGATIVE (Negative); Respiratory Syncytial Virus Ce NEGATIVE (Negative)
[2024-08-12 16:46] VITALS: BP 121/74; PULSE 108; O2SAT 94
== END 2024-08-12 16:53 | disposition home or self-care (01) ==
PROVIDERS: Emergency Provider Emergency Medicine; PCP Nurse Practitioner Family
DX: J06.9 Acute upper respiratory infection, unspecified (principal); Z11.52 Encounter for screening for COVID-19; F17.210 Nicotine dependence, cigarettes, uncomplicated; E78.5 Hyperlipidemia, unspecified; I10 Essential (primary) hypertension
CPT/HCPCS: 0241U; 71045; 93005; 94640; 96372; 99285; J1100

== ENCOUNTER 2024-08-16 12:30 | Outpatient (CLI) | payer MEDICAID, SELFPAY ==
[2023-12-08 11:02] VITALS: BP 129/73; BMI 28.6
--- NOTE | 2024-08-16 12:35 | USR_ITS ---
PROCEDURE INFORMATION: Exam: US Pelvis Transabdominal, Complete, and US Pelvis Transvaginal, Non-obstetric Exam date and time: 08/16/2024 12:58 PM Age: 44 years old Clinical indication: Pelvic pain; Additional info: Right pelvic pain TECHNIQUE: Imaging protocol: Real-time complete transabdominal and transvaginal pelvic ultrasound (non-obstetric) with image documentation. Transvaginal imaging was used for better evaluation of the endometrium, adnexa, and/or cervix. COMPARISON: CT abdomen pelvis w con* [id number] 07/09/2024 5:14 PM FINDINGS: Uterus: Uterine contours are normal. The endometrium is homogenous. Endometrial stripe thickness measures 2 mm. The uterus measures 7.3 x 4.9 x 3.3 cm. Right ovary/adnexa: The right ovary is not visible. Left ovary/adnexa: The left ovary is not visible. Intraperitoneal space: No pelvic free fluid. Urinary bladder: Urinary bladder is nondistended. US/US pelv w/transvag [id number] IMPRESSION: 1. No pathologic findings. 2. The ovaries are not visible.
== END 2024-08-16 12:31 | disposition home or self-care (01) ==
PROVIDERS: PCP Nurse Practitioner Family; Visit Provider Nurse Practitioner Family
DX: R10.2 Pelvic and perineal pain (principal)
CPT/HCPCS: 76830; 76856

== ENCOUNTER 2024-09-11 13:44 | Emergency (ER) | payer MEDICAID, SELFPAY ==
[2023-12-08 11:02] VITALS: BP 129/73; BMI 28.6
[2024-09-11 13:50] VITALS: BP 118/78; PULSE 97; RESP 16; TEMP 36.7; O2SAT 97; BMI 28.5
--- NOTE | 2024-09-11 14:38 | W.ED.ABDPA2 ---
HPI - Abdominal Pain General: Chief Complaint: Abdominal Pain Stated Complaint: lft side abd pain Time Seen by Provider: 09/11/24 14:37 History of Present Illness: 44-year-old female with history of methamphetamine abuse, hyperlipidemia, alcohol use disorder, bipolar disorder, hypertension, anxiety, tobacco dependence, schizophrenia who presents to the emergency room with epigastric pain and nausea. No vomiting. This started early this morning. She thinks it might be her pancreas. She has never had pancreatitis. No fevers. No chest pain. No altered mental status. No lower extremity swelling. Related Data Home Medications Medication Instructions Recorded Confirmed albuterol sulfate 90 mcg/actuation 2 puff inhalation Q4H PRN Wheezing 12/05/23 09/11/24 aerosol inhaler (Ventolin HFA) simvastatin 20 mg tablet 20 mg PO QPM 12/05/23 09/11/24 ibuprofen 200 mg tablet (Advil) 200 mg PO Q6H PRN pain or fever 08/15/24 09/11/24 pantoprazole 40 mg tablet,delayed 40 mg PO DAILY PRN abdominal pain 08/23/24 09/11/24 release (Protonix) risperidone 1 mg tablet 1 mg PO BEDTIME 08/23/24 09/11/24 metoprolol tartrate 25 mg tablet 25 mg PO BID 09/11/24 09/11/24 Previous Rx's Medication Instructions Recorded bupropion HCl 150 mg 24 hr tablet, 150 mg PO QAM #30 tabs 07/18/24 extended release ondansetron 8 mg disintegrating 8 mg PO Q8H PRN nausea and 07/27/24 tablet vomiting #3 tabs escitalopram oxalate 20 mg tablet 20 mg PO QAM #30 tabs 08/15/24 Allergies Allergy/AdvReac Type Severity Reaction Status Date / Time Penicillins Allergy Unknown Unknown Verified 09/11/24 13:54 aspirin Allergy ALGY-Hives Verified 09/11/24 13:54 bee venom protein (honey bee) Allergy ALGY-Swell Verified 09/11/24 13:54 Lip/Tongue/Throat Review of Systems Narrative: Constitutional symptoms: Negative except as documented in HPI. Skin symptoms: Negative except as documented in HPI. Eye symptoms: Negative except as documented in HPI. ENMT symptoms: Negative except as documented in HPI. Respiratory symptoms: Negative except as documented in HPI. Cardiovascular symptoms: Negative except as documented in HPI. Gastrointestinal symptoms: Negative except as documented in HPI. Genitourinary symptoms: Negative except as documented in HPI. Musculoskeletal symptoms: Negative except as documented in HPI. Neurologic symptoms: Negative except as documented in HPI. Psychiatric symptoms: Negative except as documented in HPI. Endocrine symptoms: Negative except as documented in HPI. PFSH ED PFSH: Medical History (Updated 09/11/24 @ 16:50 by Reema Schofield MD) Methamphetamine abuse, episodic Dyslipidemia Alcohol use disorder, severe, in early remission, dependence Methamphetamine use disorder, moderate, in early remission Psychiatric care Bipolar 1 disorder, depressed, severe Intentional self-harm Drinking binge Adjustment disorder Hypertension Anxiety Nicotine dependence, cigarettes, uncomplicated Generalized anxiety disorder Obsessive-compulsive personality disorder Chronic schizophrenia Bipolar disorder, in partial remission, most recent episode depressed Nasal obstruction Nasal turbinate hypertrophy Deviated septum Surgical History History of appendectomy History of cholecystectomy Hx laparoscopic cholecystectomy Hx of appendectomy Family History Grandmother CAD (coronary artery disease) Diabetes Hyperlipidemia Hypertension Father CAD (coronary artery disease) Cancer Hyperlipidemia Hypertension Psychiatric illness Grandfather Hyperlipidemia Hypertension Stroke Social History Smoking and tobacco/nicotine status: current every day tobacco/nicotine user cigarettes Packs smoked per day: 1 [ Other cigarette details: since ] Quit status (tobacco/nicotine): not considering quitting Second hand smoke exposure: No Alcohol intake: former Year of sobriety/quit date alcohol: 2021 Former alcohol use details: Sober since February 2022 Substance/Drug Use: former Date of last use: 2021 Adopted: No Caregiver/support person: No Lives independently: Yes Housing: House Number of children: 3 Number of grandchildren: 5 Highest education level completed: 9th Grade Current occupational status: employed Current occupational exposures/hazards: No Pets and animals: Yes Pets & animals: dog(s) Leisure activites: other Leisure activities details: play on phone and with dog Do you think of yourself as: Straight/Heterosexual Current gender identity: Female Marleny/Pentecostal: None Special marleny needs: No Agree to transfusion: Yes Female Reproductive History: Para: 3 Spontaneous abortions: No Physical Exam Narrative: EXAM NARRATIVE: General: Alert, no acute distress. Skin: Warm, dry. Head: Normocephalic, atraumatic. Neck: Supple, trachea midline. Eye: Extraocular movements are intact. Ears, nose, mouth and throat: mucosa moist. Cardiovascular: Regular, Normal peripheral perfusion. Respiratory: Lungs are clear to auscultation, respirations are non-labored, breath sounds are equal, Symmetrical chest wall expansion. Gastrointestinal: Soft, epigastric pain, Non distended Musculoskeletal: Normal ROM, no deformity. Neurological: Alert and oriented, No focal neurological deficit observed. Psychiatric: Cooperative, appropriate mood & affect. Course Vital Signs: Vital signs: Vital Signs Temperature 98.1 F 09/11/24 13:50 Pulse Rate 97 09/11/24 13:50 Respiratory Rate 16 09/11/24 13:50 Blood Pressure 118/78 09/11/24 13:50 Pulse Oximetry 97 09/11/24 13:50 Oxygen Delivery Me thod Room Air 09/11/24 13:50 MDM - Abdominal Pain Medical Decision Making Medical decision making: Differential diagnosis including but not limited to and based on the above HPI, review of systems and physical exam: In this patient with epigastric pain differential would include cholelithiasis or cholecystitis. Hepatitis. Diverticulitis. Constipation. UTI. colitis. small bowel obstruction. crohn's flare. pancreatitis. gastritis. peptic ulcer. also concern for acute cardiac event. Orders placed to evaluate differential diagnosis based on the above differential, HPI and physical exam Lab Review: Laboratory results were reviewed and interpreted by myself the emergency room physician. Patient does have a leukocytosis with a white count of 14,000. No anemia. No renal failure. Urine drug screen is positive for benzodiazepine and methamphetamine. I reviewed the patient's medical record. Reexamination: Patient remained stable. No increased work of breathing. No altered mental status. No focal motor deficits. I had offered a CT scan. Patient says she felt better and wants to go home. Says she has an ultrasound scheduled for Thursday she wants to leave. I do not disagree with this. She can return the emergency room if symptoms worsen. Assessment and plan: Epigastric pain Methamphetamine abuse ? IV Pepcid in the emergency room. - Discharged home - Discussed plan with patient. Answered any questions. - Evaluation and treatment of this problem were appropriate in the emergency setting. Lab Data 09/11/24 15:07 09/11/24 15:07 Labs/Radiology: Laboratory Results WBC 14.18 10^3/uL (3.29-11.43) H 09/11/24 15:07 RBC 4.23 10^6/uL (3.85-5.65) 09/11/24 15:07 Hgb 13.60 g/dL (11.27-16.99) 09/11/24 15:07 Hct 42.0 % (36-47) 09/11/24 15:07 MCV 99.3 fl (85-98) H 09/11/24 15:07 MCH 32.2 pg (27-33) 09/11/24 15:07 MCHC 32.4 g/dL (30-55) 09/11/24 15:07 RDW 12.3 % (12.1-15.1) 09/11/24 15:07 Plt Count 412 10^3/cmm (157-399) H 09/11/24 15:07 MPV 9.3 fL (7.4-10.4) 09/11/24 15:07 Neut % (Auto) 70.7 % 09/11/24 15:07 Lymph % (Auto) 22.9 % 09/11/24 15:07 [place] % (Auto) 4.2 % 09/11/24 15:07 Eos % (Auto) 1.4 % 09/11/24 15:07 Baso % (Auto) 0.4 % 09/11/24 15:07 Neut # (Auto) 10.04 10^3/uL (1.8-7.7) H 09/11/24 15:07 Lymph # (Auto) 3.3 10^3/uL (0.8-4.8) 09/11/24 15:07 [place] # (Auto) 0.6 10^3/uL (0.2-0.9) 09/11/24 15:07 Eos # (Auto) 0.2 10^3/uL (0.0-0.8) 09/11/24 15:07 Baso # (Auto) 0.1 10^3/uL (0.0-0.1) 09/11/24 15:07 Nucleated RBC % (auto) 0 % 09/11/24 15:07 Nucleated RBCs # 0.0 /100WBC 09/11/24 15:07 Sodium 142 mmol/L (136-145) 09/11/24 15:07 Potassium 3.4 mmol/L (3.5-5.1) L 09/11/24 15:07 Chloride 96 mmol/L (98-107) L 09/11/24 15:07 Carbon Dioxide 26 mmol/L (22-29) 09/11/24 15:07 Anion Gap 23.4 (5-19) H 09/11/24 15:07 BUN 9 mg/dL (6-20) 09/11/24 15:07 Creatinine 0.7 mg/dL (0.5-0.9) 09/11/24 15:07 GFR Calculation 90.1 mL/min (90-130) 09/11/24 15:07 Glucose 88 mg/dL (65-115) 09/11/24 15:07 Calculated Osmolality 292 mOsm/kg (285-295) 09/11/24 15:07 Lactic Acid 1.0 mmol/L (0.5-2.2) 09/11/24 15:07 Calcium 9.4 mg/dL (8.5-10.5) 09/11/24 15:07 Total Bilirubin 0.5 mg/dL (0.15-1.2) 09/11/24 15:07 AST 24 U/L (0-32) 09/11/24 15:07 ALT 38 U/L (0-33) H 09/11/24 15:07 Alkaline Phosphatase 81 U/L (35-105) 09/11/24 15:07 Total Protein 7.0 g/dL (6.6-8.7) 09/11/24 15:07 Albumin 4.4 g/dL (3.5-5.2) 09/11/24 15:07 Globulin 2.6 g/dL (1.3-4.6) 09/11/24 15:07 Lipase 31 U/L (13-60) 09/11/24 15:07 Urine Color Yellow (Yellow) 09/11/24 15:07 Urine Appearance Clear (CLEAR) 09/11/24 15:07 Urine pH 5.5 (5-7) 09/11/24 15:07 Ur Specific [place] 1.022 (1.005-1.030) 09/11/24 15:07 Urine Protein Negative (Negative) 09/11/24 15:07 Urine Glucose (UA) Negative (Normal) 09/11/24 15:07 Urine Ketones Negative (Negative) 09/11/24 15:07 Urine Blood 1+ (Negative) A 09/11/24 15:07 Urine Nitrate Negative (Negative) 09/11/24 15:07 Urine Bilirubin Negative (Negative) 09/11/24 15:07 Urine Urobilinogen 0.2 mg/dL (Negative) 09/11/24 15:07 Ur Leukocyte Esterase Trace (Negative) A 09/11/24 15:07 Urine RBC 3-5 /hpf (0-2) 09/11/24 15:07 Urine WBC 11-20 /hpf (0-5) H 09/11/24 15:07 Ur Squamous Epith Cells 0-5 /hpf (0-5) 09/11/24 15:07 Amorphous Sediment Not Reportable 09/11/24 15:07 Urine Bacteria None seen /hpf (NONE) 09/11/24 15:07 Hyaline Casts 1.65 /lpf 09/11/24 15:07 Urine Opiates Screen Negative ng/mL (Negative) 09/11/24 15:07 Ur Barbiturates Screen Negative ng/mL (Negative) 09/11/24 15:07 Ur Phencyclidine Scrn Negative ng/mL (Negative) 09/11/24 15:07 Ur Amphetamines Screen Positive ng/mL (Negative) H 09/11/24 15:07 U Benzodiazepines Scrn Positive ng/mL (Negative) H 09/11/24 15:07 Urine Cocaine Screen Negative ng/mL (Negative) 09/11/24 15:07 U Marijuana (THC) Screen Negative ng/mL (Negative) 09/11/24 15:07 Ethyl Alcohol < 10 mg/dL (0-10) 09/11/24 15:07 No radiology studies performed this visit Discharge Plan Discharge Patient Disposition: Home Clinical Impression: Abdominal pain, Methamphetamine abuse Condition: Stable Prescriptions: No Action bupropion HCl 150 mg tablet extended release 24 hr 150 mg PO QAM Qty: 30 1RF ibuprofen [Advil] 200 mg tablet 200 mg PO Q6H PRN (Reason: pain or fever) escitalopram oxalate 20 mg tablet 20 mg PO QAM Qty: 30 1RF ondansetron 8 mg tablet,disintegrating 8 mg PO Q8H PRN (Reason: nausea and vomiting) Qty: 3 0RF simvastatin 20 mg tablet 20 mg PO QPM albuterol sulfate [Ventolin HFA] 90 mcg/actuation HFA aerosol inhaler 2 puff INHALATION Q4H PRN (Reason: Wheezing) pantoprazole [Protonix] 40 mg tablet,delayed release (DR/EC) 40 mg PO DAILY PRN (Reason: abdominal pain) risperidone 1 mg tablet 1 mg PO BEDTIME metoprolol tartrate 25 mg tablet 25 mg PO BID Discharge Orders: Discharge ED (Routine); Ordered 09/11/24 Ordered By: Reema Schofield Referrals: Rachel Canales, [facility] [Primary Care Provider] - Discharge Diet: Advance as tolerated Patient Instructions: Abdominal Pain (ED), Opioid Safety, Pain Management Activity Restrictions/Additional Instructions: Thank you for choosing [facility] for your healthcare needs today. Please realize this is an emergency room and that we are providing you with a medical screening exam and this may not be complete and all inclusive of all the testing and or work up that you may need to determine your ailment or severity of your illness. You have been screened and evaluated and felt safe for discharge. Health conditions do change or evolve sometimes and as such it is important that you follow up with your Primary Doctor to be re checked, 3-5 days is a general good time frame for follow up. You are always welcome to return to the ED for re assessment if your symptoms are worsening or you have new concerns Coding Level of Care Code ED Cleaning Porter for Phil Courtney
[2024-09-11] MEDS: famotidine 20 mg/2 mL INJ 40 MG IVP (15:04)
[2024-09-11 15:21] LABS: Basophils # 0.1 10^3/uL (0.0-0.1); Basophils % 0.4 %; Eosinophils # 0.2 10^3/uL (0.0-0.8); Eosinophils % 1.4 %; Lymphocytes # 3.3 10^3/uL (0.8-4.8); Lymphocytes % 22.9 %; Mean Corpuscular HGB Conc 32.4 g/dL (30-55); Mean Corpuscular Hemoglobin 32.2 pg (27-33); Mean Corpuscular Volume 99.3 fl (85-98); Mean Platelet Volume 9.3 fL (7.4-10.4); Monocytes # 0.6 10^3/uL (0.2-0.9); Monocytes % 4.2 %; Neutrophils # 10.04 10^3/uL (1.8-7.7); Neutrophils % 70.7 %; Nucleated Red Blood Cells % 0 %; Platelet Count 412 10^3/cmm (157-399); Red Blood Count 4.23 10^6/uL (3.85-5.65); Red Cell Distribution Width 12.3 % (12.1-15.1); White Blood Count 14.18 10^3/uL (3.29-11.43)
[2024-09-11 15:24] LABS: Bilirubin Urine Negative (Negative); Blood Urine 1+ (Negative); Glucose Urine UA Negative (Normal); Ketones Urine Negative (Negative); Leukocyte Esterase Urine Trace (Negative); Nitrate Urine Negative (Negative); Protein Urine Negative (Negative); Specific Gravity, Urine 1.022 (1.005-1.030); Urine Appearance Clear (CLEAR); Urine Color Yellow (Yellow); Urobilinogen Urine 0.2 mg/dL (Negative); pH Urine 5.5 (5-7)
[2024-09-11 15:29] LABS: Bacteria Urine None Seen /hpf; Hyaline Casts Urine 1.65 /lpf; Squamous Epithelial Cell Urine 0-5 /hpf (0-5)
[2024-09-11 15:32] LABS: Alanine Aminotransferase 38 U/L (0-33); Albumin Level 4.4 g/dL (3.5-5.2); Alcohol Level < 10 mg/dL (0-10); Alkaline Phosphatase 81 U/L (35-105); Amphetamines Screen Urine Positive (Negative); Anion Gap 23.4 (5-19); Aspartate Amino Transferase 24 U/L (0-32); Barbiturates Screen Urine Negative (Negative); Benzodiazepines Screen Urine Positive (Negative); Blood Urea Nitrogen 9 mg/dL (6-20); Calcium 9.4 mg/dL (8.5-10.5); Carbon Dioxide 26 mmol/L (22-29); Chloride 96 mmol/L (98-107); Cocaine Screen Urine Negative (Negative); Creatinine Clr Calc Pharmacy 110.9431; Globulin 2.6 g/dL (1.3-4.6); Glomerular Filtration Rate 90.1 mL/min (90-130); Glucose 88 mg/dL (65-115); Lipase 31 U/L (13-60); Opiate Screen Urine Negative (Negative); Osmolality Calculated 292 mOsm/kg (285-295); PCP Screen Urine Negative (Negative); Potassium 3.4 mmol/L (3.5-5.1); Sodium 142 mmol/L (136-145); THC Screen Urine Negative (Negative); Total Bilirubin 0.5 mg/dL (0.15-1.2)
[2024-09-11 16:51] VITALS: BP 117/96; PULSE 92; RESP 18; O2SAT 98
[2024-09-11 17:01] VITALS: BP 118/96; PULSE 92; RESP 16; O2SAT 98
== END 2024-09-11 17:02 | disposition home or self-care (01) ==
PROVIDERS: Emergency Provider Emergency Medicine; PCP Nurse Practitioner Family
DX: R10.9 Unspecified abdominal pain (principal); F15.10 Other stimulant abuse, uncomplicated; F17.210 Nicotine dependence, cigarettes, uncomplicated; E78.5 Hyperlipidemia, unspecified; I10 Essential (primary) hypertension
CPT/HCPCS: 80053; 80306; 80307; 81001; 83605; 83690; 85025; 96374; 99285; J3490

== ENCOUNTER 2024-09-14 09:01 | Outpatient (CLI) | payer MEDICAID, SELFPAY ==
[2023-12-08 11:02] VITALS: BP 129/73; BMI 28.6
--- NOTE | 2024-09-14 09:06 | US_ITS ---
WS: [id number] RIGHT UPPER QUADRANT ULTRASOUND HISTORY: elevated liver enzymes COMPARISON: None available. Liver: 17.3 cm in length. Normal size liver and echogenicity. No bile duct dilatation or mass. Portal Vein: Normal hepatopetal flow with monophasic waveform. Gallbladder: Prior cholecystectomy. CBD: 0.6 cm Pancreas: Not visualized. Right kidney: 11.9 cm in length. Normal size and echogenicity. No hydronephrosis or mass. Aorta and IVC: Unremarkable abdominal aorta and IVC. No ascites. US/US abdomen limited [id number] IMPRESSION: 1. Prior cholecystectomy. 2. No intrahepatic duct dilatation. 3. Nonvisualization of the pancreas. 4. No liver abnormality.
== END 2024-09-14 09:02 | disposition home or self-care (01) ==
LOC: RAD 09:02
PROVIDERS: PCP Nurse Practitioner Family; Visit Provider Family Medicine
DX: R74.8 Abnormal levels of other serum enzymes (principal); Z90.49 Acquired absence of other specified parts of digestive tract
CPT/HCPCS: 76705

== ENCOUNTER 2024-11-28 19:36 | Emergency (ER) | payer MEDICAID, SELFPAY ==
[2023-12-08 11:02] VITALS: BP 129/73; BMI 28.6
[2024-11-28] VITALS (9 sets, daily range): BP systolic 124–144; BP diastolic 68–92; PULSE 86–114; RESP 12–18; TEMP 36.7; O2SAT 96–99; BMI 30.5
--- NOTE | 2024-11-28 19:37 | XRR_ITS ---
PROCEDURE INFORMATION: Exam: XR Chest Exam date and time: 11/28/2024 7:57 PM Age: 44 years old Clinical indication: Chest wall pain; Additional info: Cp TECHNIQUE: Imaging protocol: Radiologic exam of the chest. Views: 1 view. COMPARISON: CR XR chest 1V portable [id number] 08/12/2024 1:51 PM FINDINGS: Tubes, catheters and devices: Surgical clips overlie the right abdomen. Lungs: The lungs appear clear. Pleural spaces: No pleural effusion. No pneumothorax. Heart/Mediastinum: Mediastinum and joie appear unremarkable. Bones/joints: No acute bony abnormality identified. XR/XR chest 1V portable [id number] IMPRESSION: No evidence for an acute cardiopulmonary process.
--- NOTE | 2024-11-28 19:37 | ECG_ITS ---
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 Measurements Intervals [place] Rate: 109 P: 62 [place]: 128 QRS: 38 QRSD: 89 T: 44 QT: 341 QTc: 460 Interpretive Statements SINUS TACHYCARDIA POSSIBLE LEFT ATRIAL ENLARGEMENT [-0.1mV P-WAVE IN V1/V2] ABNORMAL RHYTHM ECG Compared to ECG 08/12/2024 13:17:51 No significant changes Electronically Signed On 11-28-2024 20:51:54 CDT by Stanislaw Miller M.D. [id number]
[2024-11-28 20:21] LABS: Basophils # 0.1 10^3/uL (0.0-0.1); Basophils % 0.8 %; Eosinophils # 0.1 10^3/uL (0.0-0.8); Eosinophils % 1.2 %; Hematocrit 42.4 % (36-47); Lymphocytes # 3.5 10^3/uL (0.8-4.8); Mean Corpuscular HGB Conc 32.1 g/dL (30-55); Mean Corpuscular Hemoglobin 31.8 pg (27-33); Mean Corpuscular Volume 99.1 fl (85-98); Mean Platelet Volume 9.3 fL (7.4-10.4); Monocytes # 0.7 10^3/uL (0.2-0.9); Monocytes % 6.4 %; Neutrophils # 6.39 10^3/uL (1.8-7.7); Nucleated Red Blood Cells % 0 %; Platelet Count 369 10^3/cmm (157-399); Red Blood Count 4.28 10^6/uL (3.85-5.65); Red Cell Distribution Width 12.1 % (12.1-15.1); White Blood Count 10.82 10^3/uL (3.29-11.43)
--- NOTE | 2024-11-28 20:24 | ED_ITS ---
HPI - Chest Pain 2 General: Chief Complaint: Chest Pain Stated Complaint: Chest Pain Time Seen by Provider: 11/28/24 20:00 History of Present Illness: 44-year-old female with a history of hyp erlipidemia, methamphetamine abuse, alcohol abuse, bipolar disorder, hypertension and anxiety who presents to the emergency room with chest and abdominal pain. Said initially felt like when she had her gallbladder out but then has developed some chest pain. He said it made her quite anxious. No lower extremity swelling. Some nausea with no vomiting. No leg swelling. She does not feel short of breath. Related Data Home Medications ?Medication ?Instructions ?Recorded ?Confirmed simvastatin 20 mg tablet 20 mg PO QPM 12/05/23 ibuprofen 200 mg tablet (Advil) 200 mg PO Q6H PRN pain or fever 08/15/24 11/15/24 metoprolol tartrate 25 mg tablet 25 mg PO BID 09/11/24 11/15/24 Previous Rx's ?Medication ?Instructions ?Recorded ondansetron HCl 4 mg tablet 4 mg PO DAILY PRN nausea a nd 09/13/24 vomiting #3 tabs bupropion HCl 150 mg 24 hr tablet, 150 mg PO QAM #30 t abs 10/31/24 extended release escitalopram oxalate 20 mg tablet 20 mg PO DAILY #30 t abs 10/31/24 risperidone 2 mg tablet 2 mg PO DAILY #30 tabs 10/31 pantoprazole 40 mg tablet,delayed See Rx Instructions .Route 11/28/24 release .COMPLEX #30 tabs Allergies Allergy/AdvReac Type Severity Reaction Status Date / Time Penicillins Allergy Unknown Unknown Verified 11/28/24 19:45 aspirin Allergy ALGY-Hives Verified 11/28/24 19:45 bee venom protein (honey bee) Allergy ALGY-Swell Verified 11/28/24 19:45 Lip/Tongue/Throat Review of Systems 2 Narrative: Constitutional symptoms: Negative except as documented in HPI. Skin symptoms: Negative except as documented in HPI. Eye symptoms: Negative except as documented in HPI. ENMT symptoms: Negative except as documented in HPI. Respiratory symptoms: Negative except as documented in HPI. Cardiovascular symptoms: Negative except as documented in HPI. Gastrointestinal symptoms: Negative except as documented in HPI. Genitourinary symptoms: Negative except as documented in HPI. Musculoskeletal symptoms: Negative except as documented in HPI. Neurologic symptoms: Negative except as documented in HPI. Psychiatric symptoms: Negative except as documented in HPI. Endocrine symptoms: Negative except as documented in HPI. PFSH ED 2 PFSH: Medical History (Updated 11/28/24 @ 21:59 by Reema Schofield MD) Methamphetamine abuse, episodic Dyslipidemia Alcohol use disorder, severe, in early remission, dependence Methamphetamine use disorder, moderate, in early remission Psychiatric care Bipolar 1 disorder, depressed, severe Intentional self-harm Drinking binge Adjustment disorder Hypertension Anxiety Nicotine dependence, cigarettes, uncomplicated Generalized anxiety disorder Obsessive-compulsive personality disorder Chronic schizophrenia Bipolar disorder, in partial remission, most recent episode depressed Nasal obstruction Nasal turbinate hypertrophy Deviated septum Surgical History History of appendectomy History of cholecystectomy Hx laparoscopic cholecystectomy Hx of appendectomy Family History Grandmother CAD (coronary artery disease) Diabetes Hyperlipidemia Hypertension Father CAD (coronary artery disease) Cancer Hyperlipidemia Hypertension Psychiatric illness Grandfather Hyperlipidemia Hypertension Stroke Social History Smoking and tobacco/nicotine status: current every day tobacco/nicotine user cigarettes Packs smoked per day: 1 [ Other cigarette details: since ] Quit status (tobacco/nicotine): not considering quitting Second hand smoke exposure: No Alcohol intake: former Year of sobriety/quit date alcohol: 2021 Former alcohol use details: Sober since February 2022 Substance/Drug Use: former Date of last use: 2021 Adopted: No Caregiver/support person: No Lives independently: Yes Housing: House Number of children: 3 Number of grandchildren: 5 Highest education level completed: 9th Grade Current occupational status: employed Current occupational exposures/hazards: No Pets and animals: Yes Pets & animals: dog(s) Leisure activites: other Leisure activities details: play on phone and with dog Do you think of yourself as: Straight/Heterosexual Current gender identity: Female Marleny/Buddhist: None Special marleny needs: No Agree to transfusion: Yes Female Reproductive History: Para: 3 Spontaneous abortions: No Physical Exam 2 Narrative: EXAM NARRATIVE: General: Alert, no acute distress. Skin: Warm, dry. Head: Normocephalic, atraumatic. Neck: Supple, trachea midline. Eye: Extraocular movements are intact. Ears, nose, mouth and throat: mucosa moist. Cardiovascular: Regular, Normal peripheral perfusion. Respiratory: Lungs are clear to auscultation, respirations are non-labored, breath sounds are equal, Symmetrical chest wall expansion. Gastrointestinal: Soft, Nontender, Non distended Musculoskeletal: Normal ROM, no deformity. Neurological: Alert and oriented, No focal neurological deficit observed. Psychiatric: Cooperative, appropriate mood & affect. Course 2 Vital Signs: Vital signs: Vital Signs Temperature 98.1 F 11/28/24 19:42 Pulse Rate 98 11/28/24 20:00 Respiratory Rate 16 11/28/24 20:00 Blood Pressure 131/83 11/28/24 20:00 Pulse Oximetry 98 11/28/24 20:00 Oxygen Delivery Me thod Room Air 11/28/24 19:42 MDM - Chest Pain Medical Decision Making Differential diagnosis for patient with chest pain includes but is not limited to and based on the above HPI, review of systems and physical exam: Pneumonia. unstable angina. angina. Acute coronary syndrome / NH. Pulmonary embolism. Costochondritis / musculoskeletal. Pleurisy. Pericarditis. Esophageal spasm. Pancreatis. Cholecystitis. Orders placed to evaluate differential diagnosis based on the above differential, HPI and physical exam EKG: Time 1939. Rate 109. Sinus tachycardia, No ST-T changes, no ectopy, normal DE & QRS intervals, This was reviewed and interpreted by myself the ER physician at 1944 Chest x-ray: No acute process. No infiltrate. No pneumothorax. This was reviewed and interpreted by myself the emergency room physician. I also reviewed the radiology report. Lab Review: Laboratory results were reviewed and interpreted by myself the emergency room physician. No leukocytosis. No anemia. No renal failure. Serial troponins are negative. No urinary tract infection. She is positive for amphetamines in her urinalysis. I reviewed the patient's medical record. Reexamination: Patient remained stable. No increased work of breathing. No altered mental status. No focal motor deficits. Assessment and plan: Noncardiac chest pain - Discharged home - Discussed plan with patient. Answered any questions. - Evaluation and treatment of this problem were appropriate in the emergency setting. Lab Data 11/28/24 20:03 11/28/24 20:03 Radiology Impressions Chest X-Ray 11/28/24 19:37 IMPRESSION: No evidence for an acute cardiopulmonary process. Laboratory Results WBC 10.82 10^3/uL (3.29-11.43) 11/28/24 20:03 RBC 4.28 10^6/uL (3.85-5.65) 11/28/24 20:03 Hgb 13.60 g/dL (11.27-16.99) 11/28/24 20:03 Hct 42.4 % (36-47) 11/28/24 20:03 MCV 99.1 fl (85-98) H 11/28/24 20:03 MCH 31.8 pg (27-33) 11/28/24 20:03 MCHC 32.1 g/dL (30-55) 11/28/24 20:03 RDW 12.1 % (12.1-15.1) 11/28/24 20:03 Plt Count 369 10^3/cmm (157-399) 11/28/24 20:03 MPV 9.3 fL (7.4-10.4) 11/28/24 20:03 Neut % (Auto) 59.0 % 11/28/24 20:03 Lymph % (Auto) 32.0 % 11/28/24 20:03 [place] % (Auto) 6.4 % 11/28/24 20:03 Eos % (Auto) 1.2 % 11/28/24 20:03 Baso % (Auto) 0.8 % 11/28/24 20:03 Neut # (Auto) 6.39 10^3/uL (1.8-7.7) 11/28/24 20:03 Lymph # (Auto) 3.5 10^3/uL (0.8-4.8) 11/28/24 20:03 [place] # (Auto) 0.7 10^3/uL (0.2-0.9) 11/28/24 20:03 Eos # (Auto) 0.1 10^3/uL (0.0-0.8) 11/28/24 20:03 Baso # (Auto) 0.1 10^3/uL (0.0-0.1) 11/28/24 20:03 Nucleated RBC % (auto) 0 % 11/28/24 20:03 Nucleated RBCs # 0.0 /100WBC 11/28/24 20:03 PT 12.80 SECONDS (12.1-14.9) 11/28/24 20:03 INR 0.90 (0.8-1.2) 11/28/24 20:03 Sodium 138 mmol/L (136-145) 11/28/24 20:03 Potassium 4.2 mmol/L (3.5-5.1) 11/28/24 20:03 Chloride 105 mmol/L (98-107) 11/28/24 20:03 Carbon Dioxide 23 mmol/L (22-29) 11/28/24 20:03 Anion Gap 14.2 (5-19) 11/28/24 20:03 BUN 15 mg/dL (6-20) 11/28/24 20:03 Creatinine 0.6 mg/dL (0.5-0.9) 11/28/24 20:03 GFR Calculation 107.6 mL/min (90-130) 11/28/24 20:03 Glucose 90 mg/dL (65-115) 11/28/24 20:03 Calculated Osmolality 286 mOsm/kg (285-295) 11/28/24 20:03 Calcium 9.5 mg/dL (8.5-10.5) 11/28/24 20:03 Total Bilirubin 0.5 mg/dL (0.15-1.2) 11/28/24 20:03 AST 20 U/L (0-32) 11/28/24 20:03 ALT 35 U/L (0-33) H 11/28/24 20:03 Alkaline Phosphatase 81 U/L (35-105) 11/28/24 20:03 Troponin T Baseline < 6 ng/L (0-10) 11/28/24 20:03 Troponin T 120 Minute 6.00 ng/L (0-10) 11/28/24 22:00 Delta Troponin T 0.63653 ABS# (0-10) 11/28/24 22:00 Total Protein 7.4 g/dL (6.6-8.7) 11/28/24 20:03 Albumin 4.8 g/dL (3.5-5.2) 11/28/24 20:03 Globulin 2.6 g/dL (1.3-4.6) 11/28/24 20:03 Lipase 38 U/L (13-60) 11/28/24 20:03 Urine Color Yellow (Yellow) 11/28/24 20:43 Urine Appearance Clear (CLEAR) 11/28/24 20:43 Urine pH 6.0 (5-7) 11/28/24 20:43 Ur Specific [place] 1.009 (1.005-1.030) 11/28/24 20:43 Urine Protein Negative (Negative) 11/28/24 20:43 Urine Glucose (UA) Negative (Normal) 11/28/24 20:43 Urine Ketones Negative (Negative) 11/28/24 20:43 Urine Blood Non-haemolysed trace (Negative) 11/28/24 20:43 Urine Nitrate Negative (Negative) 11/28/24 20:43 Urine Bilirubin Negative (Negative) 11/28/24 20:43 Urine Urobilinogen 0.2 mg/dL (Negative) 11/28/24 20:43 Ur Leukocyte Esterase Negative (Negative) 11/28/24 20:43 Urine RBC 0-2 /hpf (0-2) 11/28/24 20:43 Urine WBC 0-5 /hpf (0-5) 11/28/24 20:43 Ur Squamous Epith Cells 0-5 /hpf (0-5) 11/28/24 20:43 Amorphous Sediment Not Reportable 11/28/24 20:43 Urine Bacteria None seen /hpf (NONE) 11/28/24 20:43 Hyaline Casts 0-4 /lpf H 11/28/24 20:43 Urine Opiates Screen Negative ng/mL (Negative) 11/28/24 20:43 Ur Barbiturates Screen Negative ng/mL (Negative) 11/28/24 20:43 Ur Phencyclidine Scrn Negative ng/mL (Negative) 11/28/24 20:43 Ur Amphetamines Screen Positive ng/mL (Negative) H 11/28/24 20:43 U Benzodiazepines Scrn Negative ng/mL (Negative) 11/28/24 20:43 Urine Cocaine Screen Negative ng/mL (Negative) 11/28/24 20:43 U Marijuana (THC) Screen Negative ng/mL (Negative) 11/28/24 20:43 Ethyl Alcohol < 10 mg/dL (0-10) 11/28/24 20:03 All radiology interpretation(s) finalized by discharge Clincial Decision Support The following clinical decision support tools were used to aid in care of the patient HEART Score -> History: Slightly Suspicous, EKG: Normal, Age: 45-64 yrs, Risk Factors: 1 or 2 Risk Factors, Troponin: Baseline Trop <16 ng/L. Resulting HEART Score: 2. Discharge Plan Discharge Patient Disposition: Home Clinical Impression: Non-cardiac chest pain Condition: Stable Prescriptions: No Action ibuprofen [Advil] 200 mg tablet 200 mg PO Q6H PRN (Reason: pain or fever) bupropion HCl 150 mg tablet extended release 24 hr 150 mg PO QAM Qty: 30 1RF Rx Instructions: Take one tablet by mouth every morning, stop 200 mg dose escitalopram oxalate 20 mg tablet 20 mg PO DAILY Qty: 30 1RF Rx Instructions: Take one tablet by mouth daily risperidone 2 mg tablet 2 mg PO DAILY Qty: 30 1RF Rx Instructions: Take one tablet daily at bedtime ondansetron HCl 4 mg tablet 4 mg PO DAILY PRN (Reason: nausea and vomiting) Qty: 3 0RF pantoprazole 40 mg tablet,delayed release (DR/EC) See Rx Instructions .ROUTE .COMPLEX Qty: 30 0RF Dose Instruction: TAKE 1 TABLET BY MOUTH DAILY NEEDED ABDOMINAL PAIN Rx Instructions: TAKE 1 TABLET BY MOUTH DAILY NEEDED ABDOMINAL PAIN simvastatin 20 mg tablet 20 mg PO QPM metoprolol tartrate 25 mg tablet 25 mg PO BID Discharge Orders: Discharge ED (Routine); Ordered 11/28/24 Ordered By: Reema Schofield Referrals: Rachel Canales, CORPORATE ADMINISTRATIVE ASSISTANT [Primary Care Provider] - Discharge Diet: Usual diet Discharge Activity: Increase activity as tolerated Patient Instructions: Noncardiac Chest Pain (ED), Opioid Safety, Pain Management Activity Restrictions/Additional Instructions: Thank you for choosing [facility] for your healthcare needs today. Please realize this is an emergency room and that we are providing you with a medical screening exam and this may not be complete and all inclusive of all the testing and or work up that you may need to determine your ailment or severity of your illness. You have been screened and evaluated and felt safe for discharge. Health conditions do change or evolve sometimes and as such it is important that you follow up with your Primary Doctor to be re checked, 3-5 days is a general good time frame for follow up. You are always welcome to return to the ED for re assessment if your symptoms are worsening or you have new concerns Print Language: Pashto Coding Level of Care Code ED Bar Manager for Phil Courtney
[2024-11-28 20:39] LABS: Alanine Aminotransferase 35 U/L (0-33); Albumin Level 4.8 g/dL (3.5-5.2); Alkaline Phosphatase 81 U/L (35-105); Aspartate Amino Transferase 20 U/L (0-32); Blood Urea Nitrogen 15 mg/dL (6-20); Calcium 9.5 mg/dL (8.5-10.5); Carbon Dioxide 23 mmol/L (22-29); Chloride 105 mmol/L (98-107); Creatinine Clr Calc Pharmacy 133.7962; Globulin 2.6 g/dL (1.3-4.6); Glomerular Filtration Rate 107.6 mL/min (90-130); Glucose 90 mg/dL (65-115); Lipase 38 U/L (13-60); Osmolality Calculated 286 mOsm/kg (285-295); Sodium 138 mmol/L (136-145); Total Bilirubin 0.5 mg/dL (0.15-1.2); Total Protein 7.4 g/dL (6.6-8.7)
[2024-11-28 20:43] LABS: Troponin(5th) Baseline < 6 ng/L (0-10)
[2024-11-28 20:47] LABS: Anion Gap 14.2 (5-19); Potassium 4.2 mmol/L (3.5-5.1)
[2024-11-28 20:48] LABS: Alcohol Level < 10 mg/dL (0-10)
[2024-11-28 21:04] LABS: Bilirubin Urine Negative (Negative); Blood Urine Non-haemolysed trace (Negative); Glucose Urine UA Negative (Normal); Ketones Urine Negative (Negative); Leukocyte Esterase Urine Negative (Negative); Nitrate Urine Negative (Negative); Protein Urine Negative (Negative); Specific Gravity, Urine 1.009 (1.005-1.030); Urine Appearance Clear (CLEAR); Urine Color Yellow (Yellow); Urobilinogen Urine 0.2 mg/dL (Negative)
[2024-11-28 21:09] LABS: Bacteria Urine None Seen /hpf; Hyaline Casts Urine 0-4 /lpf; RBC Urine 0-2 /hpf (0-2); Squamous Epithelial Cell Urine 0-5 /hpf (0-5); WBC Urine 0-5 /hpf (0-5)
[2024-11-28 21:12] LABS: Amphetamines Screen Urine Positive (Negative); Barbiturates Screen Urine Negative (Negative); Benzodiazepines Screen Urine Negative (Negative); Cocaine Screen Urine Negative (Negative); Opiate Screen Urine Negative (Negative); PCP Screen Urine Negative (Negative); THC Screen Urine Negative (Negative)
[2024-11-28 22:30] LABS: Troponin 5 2HR Delta 0.00001 ABS# (0-10)
== END 2024-11-28 23:19 | disposition home or self-care (01) ==
PROVIDERS: Emergency Medicine; Emergency Provider Emergency Medicine; PCP Nurse Practitioner Family
DX: R07.89 Other chest pain (principal); F17.210 Nicotine dependence, cigarettes, uncomplicated; I10 Essential (primary) hypertension; E78.5 Hyperlipidemia, unspecified
CPT/HCPCS: 36415; 71045; 80053; 80306; 80307; 81001; 83690; 84484; 85025; 85610; 93005; 99285

== ENCOUNTER → 2024-12-29 08:44 | Outpatient (BNVA) | payer OTHER, SELFPAY ==
[2023-12-08 11:02] VITALS: BP 129/73; BMI 28.6
== END ==
PROVIDERS: PCP Nurse Practitioner Family; Visit Provider Nurse Practitioner Psychiatric/Mental Health
DX: F31.75 Bipolar disorder, in partial remission, most recent episode depressed (principal); Z79.899 Other long term (current) drug therapy
CPT/HCPCS: 80061; 83036

== ENCOUNTER 2025-01-27 12:11 | Outpatient (CLI) | payer MEDICAID, SELFPAY ==
[2025-01-03 13:29] VITALS: BP 136/80; BMI 30.1
[2025-01-27 12:18] VITALS: BMI 30.5
--- NOTE | 2025-01-27 12:18 | ECG_ITS ---
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 EXERCISE DATA: The patient was exercised by Herminio protocol. Baseline heart rate was 80 beats per minute. Baseline blood pressure was 116/73 millimeters of mercury. Target heart rate was 173 beats per minute. Maximum heart rate achieved was 152, which was 87% of the target heart rate. Maximum blood pressure was 145/74 millimeters of mercury. Total exercise time was 5 minutes 1 second. Maximum METs achieved was 7, maximum VO2 was 24. The reason for ending the test was maximum effort achieved. The patient complained of shortness of breath during the stress test, which then resolved at the end of the test. ELECTROCARDIOGRAM: BASELINE: Showed sinus rhythm, normal axis, no significant ST-T changes at the baseline noted. EXERCISE: At the peak exercise level, no significant ST-T changes suggestive of ischemia noted. RECOVERY: During the recovery period, heart rate dropped appropriately. No significant ST-T changes in the recovery suggestive of ischemia noted. CONCLUSION: 1. Exercise capacity poor 2. Heart rate response was appropriate. 3. Blood pressure response was appropriate. 4. Symptoms not suggestive of ischemia. 5. Electrocardiogram portion of the stress test was not suggestive of ischemia. Electronically Signed On 02-08-2025 22:19:24 CDT by CLEO KELLER [id number] [id number]
[2025-01-27 12:52] VITALS: BP 128/83; PULSE 102
== END 2025-01-27 12:12 | disposition home or self-care (01) ==
LOC: CDL 12:14
PROVIDERS: PCP Nurse Practitioner Family; Visit Provider Internal Medicine Cardiovascular Disease
DX: R07.9 Chest pain, unspecified (principal)
CPT/HCPCS: 93017

== ENCOUNTER 2025-02-24 08:59 | Outpatient (CLI) | payer MEDICAID, SELFPAY ==
[2025-01-03 13:29] VITALS: BP 136/80; BMI 30.1
--- NOTE | 2025-02-24 09:15 | USCV_ITS ---
Mary Saucedo Age: 45 Gender: F : 1980 Exam Date: 02/24/2025 10:01 Ordering Phys: Stanislaw Miller MD ([email or web address]) Technologist: Sachin Coronado Exam Location: [facility] [place] Indication: LAE/MR BP: 114 / 74 HR: 88 Rhythm: Sinus Technical Quality: Adequate MEASUREMENTS (Male / Female) Normal Values 2D ECHO LV Diastolic Diameter PLAX 4.4 cm 4.2 - 5.9 / 3.9 - 5.3 cm IVS Diastolic Thickness 1.3 cm 0.6 - 1.0 / 0.6 - 0.9 cm IVS Systolic Thickness 1.7 cm LVPW Diastolic Thickness 1.6 cm 0.6 - 1.0 / 0.6 - 0.9 cm LVPW Systolic Thickness 2.2 cm LVOT Diameter 2.0 cm LV Ejection Fraction 2D Teich 60.9 % LV Ejection Fraction MOD 4C 69.1 % LV Ejection Fraction MOD 2C 61.3 % LV Ejection Fraction 2C AL 60.8 % LA Diameter 3.1 cm RA Systolic Volume 4C AL 35.1 ml RA Systolic Volume 4C MOD 35.7 ml LA Sys Volume AL 49.5 cm cubed LA Sys Volume Index AL 23.9 cm cubed/m squared Aorta at Sinotubular Diameter 2.4 cm IVC Diameter 1.4 cm M-MODE LA Ao Ratio MM 1.3 AV Cusp Separation MM 2.0 cm DOPPLER AV Peak Velocity 137.0 cm/s LVOT Peak Velocity 99.0 cm/s AV Area Cont Eq vti 2.9 cm squared AV Area Cont Eq pk 2.3 cm squared MV Peak Velocity 122.0 cm/s MV Area PHT 7.2 cm squared Mitral E to A Ratio 0.8 TR Peak Velocity 200.0 cm/s TR Peak Gradient 16.0 mmHg TR Mean Velocity 167.0 cm/s TR Mean Gradient 11.6 mmHg TR Velocity Time Integral 44.0 cm PV Peak Velocity 102.0 cm/s RV Ejection Time 0.3 s FINDINGS Left Ventricle Normal left ventricular size, systolic function and wall thickness, with no regional wall motion abnormalities. Estimated LVEF normal 65%. Right Ventricle Normal right ventricular size and systolic function. Right Atrium Normal right atrial size. Left Atrium Normal left atrial size. Mitral Valve Structurally normal mitral valve. Trace mitral valve regurgitation. Aortic Valve Structurally normal trileaflet aortic valve. No aortic stenosis Tricuspid Valve Structurally normal tricuspid valve. No tricuspid valve regurgitation. TR gradient 16 mmHg. Estimated PAP is normal 21 mmHg. Pulmonic Valve Pulmonic valve not well visualized. Trace pulmonary valve regurgitation. Pericardium No pericardial effusion. Aorta Normal size aortic root and proximal ascending aorta. IVC Normal IVC dimension with >50% respiratory change of the inferior vena cava. CONCLUSIONS Normal LV systolic function. Normal LVEF 65%. Normal RV and RV systolic function. Normal right and left atria. No significant valvular abnormality noted. Normal right heart and pulmonary pressures. Jeanette Navarrete MD (Electronically Signed) Final Date: 24 February 2025 18:27 S
== END 2025-02-24 09:00 | disposition home or self-care (01) ==
PROVIDERS: PCP Nurse Practitioner Family; Visit Provider Internal Medicine Cardiovascular Disease
DX: R06.09 Other forms of dyspnea (principal)
CPT/HCPCS: 93306